=== PATIENT | male | born 1960 | race Caucasian/White ===

== ENCOUNTER → 2019-02-27 | Outpatient (CLI) | payer OTHER ==
--- NOTE | 2019-02-27 14:20 | REP ---
Clinical: Symptoms and pain related to atherosclerotic disease and intermittent claudication. Technique: Real time garcia scale and color Doppler evaluation of the bilateral lower extremity arterial vasculature using linear high frequency transducer. Findings: Advanced bilateral atheromatous plaquing is appreciated with occlusion of the bilateral proximal to distal superficial femoral arteries and subsequent downstream revascularization at the level of the distal femoral arteries. Monophasic wave patterns noted bilaterally. ABIs were not obtainable. Peak systolic velocities (cm/sec) RIGHT LEFT Common femoral artery 89.2 60.1 Profunda femoris 22.9 44.7 SFA (proximal) occluded occluded SFA (mid) occluded occluded SFA (distal) 65.2 17.6 Popliteal artery 102.8 61.1 SALLY (prox.) 167.5 43.5 Tibioperoneal trunk 109.7 103.0 AMUSEMENT MACHINE MECHANIC (prox.) 127.4 191.4 AMUSEMENT MACHINE MECHANIC (distal) 13.1 12.1 SALLY (distal) 13.0 9.5 Impression: Extensive atheromatous changes with occlusion to the bilateral proximal to distal superficial femoral arteries and subsequent downstream revascularization. Electronically Signed by Geovani Salamanca MD 02/27/2019 02:12 P
== END ==
LOC: M RAD 12:19
PROVIDERS: ATTEND Physician Assistant
DX: I70.213 Atherosclerosis of native arteries of extremities with intermittent claudication, bilateral legs (principal)

== ENCOUNTER → 2019-03-16 | Outpatient (CLI) | payer OTHER ==
[2019-03-16 10:16] LABS: HEMATOCRIT 45.6 % (42.0-52.0); HEMOGLOBIN 15.2 g/dl (13.5-17.5); MEAN CORPUSCULAR HEMOGLOBIN 31.7 pg (27.0-33.0); MEAN CORPUSCULAR HGB CONC 33.3 g/dl (32.0-36.5); PLATELET COUNT, AUTOMATED 317 10^3/uL (150-450); WHITE BLOOD COUNT 7.5 10^3/uL (4.0-10.0)
[2019-03-16 10:46] LABS: BLOOD UREA NITROGEN 10 MG/DL (7-18); CALCIUM LEVEL 8.8 MG/DL (8.5-10.1); CARBON DIOXIDE LEVEL 30 MEQ/L (21-32); CHLORIDE LEVEL 102 MEQ/L (98-107); CREATININE FOR GFR 0.78 MG/DL (0.70-1.30); GLOMERULAR FILTRATION RATE > 60.0 (>56); GLUCOSE, FASTING 98 MG/DL (70-100); POTASSIUM SERUM 4.5 MEQ/L (3.5-5.1); SODIUM LEVEL 139 MEQ/L (136-145)
== END ==
LOC: M LAB 08:38
PROVIDERS: ATTEND Physician Assistant
DX: Z01.818 Encounter for other preprocedural examination (principal); M79.606 Pain in leg, unspecified

== ENCOUNTER → 2019-03-16 | Outpatient (CLI) | payer OTHER ==
--- NOTE | 2019-03-17 04:42 | REP ---
Clinical: Abnormal lung findings. Technique: Axial noncontrast images from the thoracic inlet to the upper abdomen with coronal and sagittal re-formations. Comparison: 11/06/2018 (outside examination). Findings: Somewhat ill-defined areas of opacity involving the perihilar right upper lobe are again identified and similar to prior examination. No new area of consolidation, significant nodule or mass lesion is appreciated. Nonspecific mediastinal lymph nodes measure up to 10 mm short axis diameter and remains stable. No effusion. No pneumothorax. Tracheobronchial tree is patent. Mediastinum demonstrates atherosclerotic changes to the thoracic aorta and coronary arteries without aortic aneurysm or cardiomegaly. No pericardial effusion. Musculoskeletal structures are intact. Limited upper abdomen demonstrates normal bilateral adrenal glands. Impression: Somewhat ill-defined areas of opacity involving the perihilar right upper lobe are similar to prior examination and without significant improvement or enlargement. Follow-up examination in 3-6 months may be warranted. Electronically Signed by Geovani Salamanca MD 03/17/2019 04:33 A
== END ==
LOC: M RAD 07:49
PROVIDERS: ATTEND Internal Medicine Pulmonary Disease
DX: R91.8 Other nonspecific abnormal finding of lung field (principal)

== ENCOUNTER → 2019-03-16 | Outpatient (CLI) | payer OTHER ==
[2019-03-16 10:17] LABS: BASO # 0.1 10^3/uL (0.0-0.2); BASO % 0.8 % (0.0-1.0); EOS # 0.2 10^3/uL (0.0-0.5); EOS % 2.4 % (0.0-3.0); HEMATOCRIT 47.1 % (42.0-52.0); LYMPH # 1.3 10^3/uL (1.5-5.0); LYMPH % 18.5 % (24.0-44.0); MEAN CORPUSCULAR HEMOGLOBIN 30.6 pg (27.0-33.0); MEAN CORPUSCULAR HGB CONC 31.8 g/dl (32.0-36.5); MEAN CORPUSCULAR VOLUME 96.1 fl (80.0-96.0); MONO # 0.7 10^3/uL (0.0-0.8); MONO % 9.1 % (0.0-5.0); NEUTROPHILS # 4.9 10^3/uL (1.5-8.5); NEUTROPHILS % 68.8 % (36.0-66.0); PLATELET COUNT, AUTOMATED 294 10^3/uL (150-450); WHITE BLOOD COUNT 7.1 10^3/uL (4.0-10.0)
[2019-03-16 10:40] LABS: ERYTHROCYTE SEDIMENTATION RATE 3 mm/hr (0-20)
[2019-03-16 10:52] LABS: ALT/SGPT 32 U/L (12-78); BILIRUBIN,TOTAL 0.4 MG/DL (0.2-1.0); BLOOD UREA NITROGEN 11 MG/DL (7-18); C REACTIVE PROTEIN QUANTITATIV < 0.30 MG/DL (0.00-0.30); CALCIUM LEVEL 9.1 MG/DL (8.5-10.1); CARBON DIOXIDE LEVEL 30 MEQ/L (21-32); CHLORIDE LEVEL 102 MEQ/L (98-107); CREATININE FOR GFR 0.76 MG/DL (0.70-1.30); GLOMERULAR FILTRATION RATE > 60.0 (>56); GLUCOSE, FASTING 98 MG/DL (70-100); POTASSIUM SERUM 4.3 MEQ/L (3.5-5.1); RHEUMATOID FACTOR QUANT < 10.0 IU/ML (<15.0); SODIUM LEVEL 138 MEQ/L (136-145); TOTAL PROTEIN 7.2 GM/DL (6.4-8.2)
[2019-03-16 13:49] LABS: HIV 1&2 SCREEN CENTAUR NEGATIVE (NEGATIVE)
== END ==
LOC: M LAB 08:31
PROVIDERS: ATTEND Internal Medicine Pulmonary Disease
DX: Z01.818 Encounter for other preprocedural examination (principal); R91.8 Other nonspecific abnormal finding of lung field; M79.606 Pain in leg, unspecified

== ENCOUNTER 2019-04-13 06:46 | Day surgery (SDC) | payer OTHER ==
[~2019-04-13] VITALS: Ht 177.8 cm; Wt 61.2 kg
[~2019-04-13 06:46] MED LIST: ASPI81CH33 PO; IPRA0.00 NEB; LIDOCAINE 1% MDV 20ML VIAL SQ PRN
[2019-04-13] MEDS ORDERED: LR 1,000 ML IV ONE (07:00)
[2019-04-13] MEDS ORDERED: THROMBIN SOLN 5,000 UNITS VIAL As Ordered ONE (08:09)
[2019-04-13] MEDS ORDERED: ROCURONIUM BROMIDE 50 MG/5 ML VIAL As Ordered ONE ×2 (08:10→09:24)
[2019-04-13] MEDS ORDERED: ONDANSETRON 4MG/2ML VIAL (J2405) As Ordered ONE (08:10)
[2019-04-13] MEDS ORDERED: EPINEPHrine 1MG/10ML SYRINGE 1.5IN As Ordered ONE (08:10)
[2019-04-13] MEDS ORDERED: dexameTHASONE 4 MG/ML 1ML VIAL (J1100) As Ordered ONE (08:10)
[2019-04-13] MEDS ORDERED: LIDOCAINE VISCOUS 2% SOLN 15ML UDC As Ordered ONE (08:10)
[2019-04-13] MEDS ORDERED: propofoL 200 MG/20 ML VIAL As Ordered ONE (08:10)
[2019-04-13] MEDS ORDERED: LIDOCAINE 1% SDV INJ 30 ML VIAL As Ordered ONE (08:10)
[2019-04-13] MEDS ORDERED: CETACAINE SPRAY 5GM As Ordered ONE (08:10)
[2019-04-13] MEDS ORDERED: LIDOCAINE 2% INJ 100 MG/5 ML SDV (FOR ANES.) As Ordered ONE (08:10)
[2019-04-13] MEDS ORDERED: MIDAZOLAM INJ 2 MG/2 ML VIAL (J2250) As Ordered ONE (08:12)
[2019-04-13] MEDS ORDERED: fentaNYL 100 MCG/2 ML INJECTION (J3010) As Ordered ONE (08:12)
[2019-04-13] MEDS ORDERED: SUGAMMADEX SODIUM 500 MG/5 ML VIAL (BRIDION) As Ordered ONE (09:31)
--- NOTE | 2019-04-13 10:14 | ROOR ---
Patient Name: Joe Hobson Procedure Date: 04/13/2019 8:05 AM Date of : 1960 Admit Type: Outpatient Age: 58 Room: Main OR Note Status: Finalized Attending MD: Lauren Figueroa MD Procedure: Bronchoscopy Indications: Unresolving right upper lobe infiltrate, Mediastinal adenopathy Providers: Lauren Figueroa MD (Doctor) Referring MD: 1. No Referring Physician 1. No Referring Physician, Admin. (Referring MD) Requesting Physician: Medicines: General Anesthesia, Cetacaine topical Complications: No immediate complications. Estimated blood loss: Minimal Procedure: Pre-Anesthesia Assessment: - Prior to the procedure, a History and Physical was performed, and patient medications and allergies were reviewed. The patient's tolerance of previous anesthesia was also reviewed. The risks and benefits of the procedure and the sedation options and risks were discussed with the patient. All questions were answered, and informed consent was obtained. Prior Anticoagulants: The patient has taken aspirin, last dose was day of procedure. ASA Grade Assessment: III - A patient with severe systemic disease. After reviewing the risks and benefits, the patient was deemed in satisfactory condition to undergo the procedure. The Bronchoscope was introduced through the mouth, via the endotracheal tube (the patient was intubated for the procedure) and advanced to the tracheobronchial tree of both lungs. The procedure was accomplished without difficulty. The patient tolerated the procedure well. Findings: Respiratory tract: The trachea is of normal caliber. The kailey is sharp. The entire tracheobronchial tree was examined to at least the first subsegmental level. Bronchial anatomy are normal; there were scant mucous secretions noted. In left bronchial tree there was some mucosal pitting and webbing and nodular cartilage in DERIK. In the RUL there was a polypoid mucosal lesion. There was a nodular area of mucosa just prior to RUL oriface. In the RUL apical and anterior segment orifaces there was mildly friable mucosa with thickened appearance causing narrowing of the segmental oriface. Endobronchial biopsies of a nodule were performed in the right upper lobe using a forceps and sent for histopathology examination. Electromagnetic navigation bronchoscopy utilizing the [employer] system with iLogic upgrade was performed. The CT scan was used for planning purposes. A virtual bronchoscopic image was generated using the planning software and the kailey, left main bronchus kailey, left lower lobe basilar segment, right upper lobe, right middle lobe and right lower lobe basilar segment registration points were marked on the virtual image. The target in the apical segment of the right upper lobe was marked. An area of infiltration was found and a pathway was created. After a complete airway exam, the locatable guide/extended working channel was inserted and an automatic registration was performed by advancing the scope through the kailey, left main bronchus kailey, left lower lobe basilar segment, right upper lobe, right middle lobe and right lower lobe basilar segment. The navigation phase was then begun to locate the target lesion(s). Positioning off-center (in relation to the lesion) was confirmed using the Olympus radial probe US catheter. The locatable guide was removed from the extended working channel. Fluoroscopy guided transbronchial brushings of an area of infiltration were obtained in the apical segment of the right upper lobe with a needle brush and sent for routine cytology. Transbronchial brushing technique was selected because the sampling site was not visible endoscopically. Transbronchial needle aspirations of an area of infiltration were performed in the apical segment of the right upper lobe GenCut and sent for routine cytology. The procedure was guided by fluoroscopy. Transbronchial needle aspiration technique was selected because the sampling site was not visible endoscopically. Transbronchial biopsies of an area of infiltration were performed in the apical segment of the right upper lobe using forceps and sent for histopathology examination. The procedure was guided by fluoroscopy. Transbronchial biopsy technique was selected because the sampling site was not visible endoscopically. Bronchoalveolar lavage was performed in the RUL apical segment (B1) of the lung and sent for cell count, bacterial culture, viral smears & culture, and fungal & AFB analysis and cytology. The return was blood-tinged. Mucous plugs were present in the return fluid. An endobronchial ultrasound endoscope was utilized in order to assist with fine needle aspiration in the right paratracheal area and in the right hilum. Transbronchial needle aspirations of a lymph node were performed in the right paratracheal area and in the right hilum using an Olympus EBUS-TBNA 21 gauge needle and sent for routine cytology. The procedure was guided by ultrasound. Transbronchial needle aspiration technique was selected because the sampling site was not visible endoscopically. Estimated blood loss: minimal. Impression: - Unresolving right upper lobe infiltrate - Mediastinal adenopathy - An endobronchial biopsy was performed. - Electromagnetic navigation bronchoscopy was performed. - Transbronchial brushings were obtained. - A transbronchial needle aspiration was performed. - Transbronchial lung biopsies were performed. - Bronchoalveolar lavage was performed. - Endobronchial ultrasound was performed. - A transbronchial needle aspiration was performed. Recommendation: - Follow up with bronchoscopist as previously scheduled. Attending Participation: I personally performed the entire procedure. Lauren Figueroa MD 04/13/2019 10:13:43 AM Number of Addenda: 0 Note Initiated On: 04/13/2019 8:05 AM
[2019-04-13] MEDS ORDERED: fentaNYL 100 MCG/2 ML INJECTION (J3010) IV PRN (10:15)
[2019-04-13] MEDS ORDERED: oxyCODONE 5MG TAB PO PRN (10:15)
[2019-04-13] MEDS ORDERED: ONDANSETRON 4MG/2ML VIAL (J2405) IV PRN (10:15)
[2019-04-13] MEDS ORDERED: LR 1,000 ML IV SCH (10:15)
--- NOTE | 2019-04-13 10:25 | REP ---
Clinical: Status post bronchoscopy . Comparison: None . Findings: The mediastinum and cardiac silhouette are stable and within normal limits for portable technique. The lung [place] are clear without acute consolidation, effusion, or pneumothorax. Skeletal structures are intact. Impression: No acute cardiopulmonary process appreciated. Electronically Signed by Geovani Salamanca MD 04/13/2019 10:16 A
[2019-04-13 10:49] LABS: APPEARANCE CLOTTED (CLEAR); COLOR RED (COLORLESS); SOURCE RIGHT UPPER LOBE
[2019-04-13 11:00] VITALS: BP 145/66
[2019-04-13 12:09] LABS: MONOCYTES/MACROPHAGES, BAL 4 %
[2019-04-21] MEDS ORDERED: VITA1CHW7 PO (07:04)
== END 2019-04-13 11:10 | disposition home or self-care (01) ==
LOC: M SDC 06:46
PROVIDERS: ATTEND Internal Medicine Pulmonary Disease
DX: R91.8 Other nonspecific abnormal finding of lung field (principal); R59.0 Localized enlarged lymph nodes; J44.9 Chronic obstructive pulmonary disease, unspecified; M19.90 Unspecified osteoarthritis, unspecified site; I73.9 Peripheral vascular disease, unspecified; D50.9 Iron deficiency anemia, unspecified; F17.218 Nicotine dependence, cigarettes, with other nicotine-induced disorders; Z79.82 Long term (current) use of aspirin
CPT/HCPCS: 31623; 31624; 31625; 31627; 31628; 31653; 71045; 76000; 87070; 87077; 87102; 87116; 87186; 87205; 87206; 88104; 88108; 88173; 88305; 88313; 89051; J1100; J2250; J2405; J3010

== ENCOUNTER → 2019-04-21 | Outpatient (CLI) | payer OTHER ==
[~2019-04-21] MED LIST changes: +HEPARIN 1,000 UNITS/ML 10ML VIAL (FOR RADIOLOGY& DIALYSIS ONLY)(J1644-10) As Ordered ONE; +ISOVUE-300 61% 50ML VIAL (Q9967) As Ordered ONE; +LIDOCAINE 1% MDV 20ML VIAL As Ordered ONE; -LIDOCAINE 1% MDV 20ML VIAL SQ PRN; +MIDAZOLAM INJ 2 MG/2 ML VIAL (J2250) As Ordered ONE; +VITA1CHW7 PO; +fentaNYL 100 MCG/2 ML INJECTION (J3010) As Ordered ONE
[2019-04-21 07:14] LABS: HEMATOCRIT 42.8 % (42.0-52.0); HEMOGLOBIN 14.2 g/dl (13.5-17.5); MEAN CORPUSCULAR HEMOGLOBIN 31.2 pg (27.0-33.0); MEAN CORPUSCULAR HGB CONC 33.2 g/dl (32.0-36.5); MEAN CORPUSCULAR VOLUME 94.1 fl (80.0-96.0); PLATELET COUNT, AUTOMATED 315 10^3/uL (150-450); RED BLOOD COUNT 4.55 10^6/uL (4.30-6.10); WHITE BLOOD COUNT 7.3 10^3/uL (4.0-10.0)
[2019-04-21 07:39] LABS: ALBUMIN 3.6 GM/DL (3.2-5.2); ALT/SGPT 33 U/L (12-78); BILIRUBIN,TOTAL 0.3 MG/DL (0.2-1.0); BLOOD UREA NITROGEN 9 MG/DL (7-18); CALCIUM LEVEL 8.9 MG/DL (8.5-10.1); CARBON DIOXIDE LEVEL 29 MEQ/L (21-32); CHLORIDE LEVEL 107 MEQ/L (98-107); CREATININE FOR GFR 0.76 MG/DL (0.70-1.30); GLOMERULAR FILTRATION RATE > 60.0 (>56); GLUCOSE, FASTING 90 MG/DL (70-100); POTASSIUM SERUM 5.6 MEQ/L (3.5-5.1); SODIUM LEVEL 137 MEQ/L (136-145); TOTAL PROTEIN 6.7 GM/DL (6.4-8.2)
--- NOTE | 2019-04-21 09:11 | ROOPDOC ---
[facility] Report Of Operation Report of Operation DATE OF PROCEDURE: 04/21/19 PREPROCEDURE DIAGNOSES: Atherosclerosis of the [place] arteries with lifestyle limiting claudication POSTPROCEDURE DIAGNOSES: Same PROCEDURE: 1. Ultrasound-guided access right common femoral artery 2. Aortoiliofemoral arteriogram with bilateral lower extremity runoff 3. Mynx closure right common femoral artery SURGEON: Jaja Teran MD ANESTHESIA: Local anesthesia 5 mL lidocaine. Moderate intravenous conscious sedation was supervised by Dr. Teran. The patient was independently monitored by a registered nurse assigned to the Department of radiology using automated blood pressure, EKG, and pulse oximetry. The detailed sedation record is permanently stored in the hospital information system. The following is a brief sedation record: Start time 08:09, stop time 08:39, Versed 1 mg IV, fentanyl 50 g IV. INDICATION FOR PROCEDURE: This is a very pleasant 58-year-old gentleman with lifestyle limiting claudication left leg worse than right, who was initially scheduled for right lower extremity arteriogram today, but after discussion with him this morning, we decided to change his consent to the left lower extremity possible right. He said that he is having worse symptoms on the left at this point. Risks benefits and alternatives to left lower extremity, possible right lower extremity arteriogram and intervention were explained. The patient is agreeable to proceed. Informed consent was obtained. INTERPRETATION: 1. 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 There is extensive collateralization from the right hypogastric artery over to the left profunda, which is the arterial inflow to the left lower extremity. The origin of the right hypogastric is stenotic with poststenotic dilatation, but there is still rapid filling over to the left vessel. 2. The right common femoral arteries patent but no flow was noted in the superficial femoral artery. There is plaque in the common femoral artery that is not appear flow-limiting, with excellent flow in 20 widely patent profunda system that supplies the lower extremity on the right. The popliteal artery reconstitutes [id number] through these profunda collaterals. The anterior tibial has a high takeoff in the mid popliteal artery and does runoff to the foot although it is fairly thready towards the ankle. The peroneal artery is also patent and runs off to the ankle but it is diminutive and side from the mid calf to distal. The posterior tibial artery is the main runoff to the foot and is the largest vessel at the ankle and the foot. 3. On the right, it is difficult to see if there is reconstitution at the popliteal artery although I think that I'm able to see a faint shadow of the popliteal artery reconstituting. Even with large dose of contrast, there is such limited flow through the collaterals from right to left that the contrast washes out below the knee. We are not able to see the runoff below the knee. REPORT OF OPERATION: The patient was brought to the angiographic suite in stable condition. His bilateral groins were prepped and draped in a sterile fashion. A timeout was performed. Sedation was administered without complication. Local anesthesia was administered to the skin and subcutaneous tissue over the right common femoral artery and a microneedle was used to access the artery under ultrasound guidance. A wire was passed through this access of the needle was removed and a micro-sheath was placed over the wire using a Seldinger technique. Following this, we advanced a Glidewire into the aorta under fluoroscopic guidance. We exchanged the sheath for 6 Wolof sheath and flushed the sheath wi th saline. We advanced a contractor catheter over the wire into the aorta and in aortoiliofemoral arteriogram was performed, please see interpretation above. We then removed the contrast catheter over the wire and the arteriograms were then done through the right femoral sheath for the bilateral lower extremity runoff. Please see interpretation above. At this point we did not feel endovascular intervention would be successful for the patient due to his extensive vascular disease and a Mynx closure device was deployed in the right common femoral artery under fluoroscopic guidance with good hemostasis. Pressure was held for 10 minutes and the patient was then taken to recovery in stable condition. There were no compilations any tolerated the procedure well. ESTIMATED BLOOD LOSS: Approximately 3 mL. COMPLICATIONS: None. PLAN: We will plan to see the patient back in the office to discuss options for open surgical intervention. He has relatively good inflow through the right iliac artery, and I think he may benefit from bilateral common femoral endarterectomy and right to left femoropopliteal bypass. It is unclear how much outflow he has at and below the knee on the left due to washout of contrast from limited inflow through collaterals. However, the patient's left foot is warm and pink, thus I suspect he has decent outflow below the knee. Both superficial femorals are out with good collateral flow through the profundus, and I suspect both popliteal arteries reconstitute at the knee. Ideally, the patient would have bilateral common femoral endarterectomy, femoropopliteal bypasses bilaterally and a right to left femorofemoral bypass, but this is an extremely arduous surgery that could take up to 10 hours, and his symptoms may be somewhat alleviated with proximal endarterectomies and improvement in inflow. If the patient were to quit smoking and ambulate, he likely wouldn't improve his pro sabrina collaterals to the below-knee segments which would likely alleviate his claudication. We had a lengthy discussion about smoking cessation today and the patient is willing to quit. We will plan to see him in clinic to discuss all options for revascularization, and he will need to be set up for cardiac and medical clearance for surgery. He will need a stress test if he has not had 1 within one year. He is agreeable to this plan. JAJA TERAN MD Apr 21, 2019 09:11
[2019-04-21 12:06] VITALS: BP 147/71
== END ==
LOC: M IRPRO 06:25
PROVIDERS: ATTEND Surgery Vascular Surgery
DX: I70.213 Atherosclerosis of native arteries of extremities with intermittent claudication, bilateral legs (principal); J44.9 Chronic obstructive pulmonary disease, unspecified; F17.210 Nicotine dependence, cigarettes, uncomplicated
CPT/HCPCS: 36245; 75630; 80053; 85027; 99152; 99153; C1760; C1769; C1887; C1894; G0269; J1644; J2250; J3010; Q9967

== ENCOUNTER → 2019-07-07 | Outpatient (CLI) | payer OTHER ==
[~2019-07-07] MED LIST changes: -HEPARIN 1,000 UNITS/ML 10ML VIAL (FOR RADIOLOGY& DIALYSIS ONLY)(J1644-10) As Ordered ONE; -ISOVUE-300 61% 50ML VIAL (Q9967) As Ordered ONE; -LIDOCAINE 1% MDV 20ML VIAL As Ordered ONE; -MIDAZOLAM INJ 2 MG/2 ML VIAL (J2250) As Ordered ONE; +OXYC1TAB23 PO; +PLAV1TAB2 PO; -fentaNYL 100 MCG/2 ML INJECTION (J3010) As Ordered ONE
== END ==
LOC: M LABSMTC 09:48
PROVIDERS: ATTEND Anesthesiology
DX: Z03.818 Encounter for observation for suspected exposure to other biological agents ruled out (principal); Z11.59 Encounter for screening for other viral diseases

== ENCOUNTER 2019-07-10 06:02 | Inpatient (IN) | payer OTHER ==
--- NOTE | 2019-07-03 09:41 | HPEPDOC ---
[facility] Medical History & Physical Date of Admission July 10, 2019 Date of Service: July 10, 2019 History and Physical Vascular Surgery Dr. Teran HPI: The patient is a 58-year-old male who established care 02/17/19 referred from the [place] for evaluation of PAD. The patient has reported pain in his lower extremities have been unchanged. The patient states he has noticed discomfort in his lower extremities for approximately 10 years. With ambulation he has pain which is crampy in nature and his thighs, calves and behind his knees. Currently if he walks 30-50 feet he will begin to notice discomfort in his legs. If he stops for 10-15 minutes the discomfort improves and it recurs if he begins walking again. He gets a weak sensation in his legs. He has numbness and tingling in his feet. He states the left has been worse on the right. He has no wounds on his lower extremities. His feet tend to feel cool. The patient is status post right lower extremity angiogram as per Dr. Teran 04/21/19 with recommendation as per Dr. Teran for bilateral common femoral endarterectomy with right to left femoral-femoral bypass graft. In preparation for the procedure medical clearance has been obtained and displaced at the chart. Cardiac clearance with stress test has been obtained and displaced to the chart. The pt is a current smoker The pt is on ASA. The pt denies TIA, amaurosis fugax, paralysis or paresis of extremities, nausea, vomiting, fever, chills, SOB, chest pain, abdominal pain, back pain. PMHx: PAD COPD Tobacco use PSHX: Left knee surgery SOCHX: Works part-time at [employer]. Current smoker 10-20 per day for 40 years. Alcohol. 3-4 beers per day. FAMHX: Mother: , cancer Father: , MVA ROS: As noted in HPI, otherwise 11pt ROS of systems reviewed and unremarkable. PE: Const: Appears healthy and well developed. No signs of apparent distress present. Head/Face: Normal on inspection. ENMT: Tympanic membranes: intact. External nose WNL. Neck: Supple, Resp: Decreased breath sounds but clear, no wheezing. CV: Rate is regular. Rhythm is regular. No wounds are noted on the lower extremities. Monophasic DP/PT bilaterally.Reddish discoloration is noted of the toes. Toes are cooler to touch. The patient has dry skin of his lower extremities. Flaking of his nails. Abdomen: Soft, NT, ND, no guarding, rigidity, rebound. No organomegaly or palpable mass/aneurysm. Lymph: No palpable or visible regional lymphadenopathy. Musculo:Gait steady Skin:No rashes or lesions Neuro:Alert and oriented x3, moves all extremities equally, no focal neurologic deficits noted. Psych: Pleasant and cooperative A&P: 1. Atherosclerosis [place] vessels of lower extremities bilaterally/bilateral femoral endarterectomy with right to left femoral-femoral bypass as per Dr. Teran 07/10/19. Informed consent has been obtained and is placed with the chart. Transfusion consent is obtained and is placed with the chart. Medical clearance has been obtained and is placed with the chart. Cardiac clearance with stress study has been obtained and is placed in the chart. The patient is nothing by mouth. IV fluids as per anesthesia. CBC, BMP, INR, PTT, type and screen on admission. Ancef 2 g IV preoperatively. The patient remains on aspirin 81 mg daily. Possibly consider addition of statin for best medical management postop eratively. 2. Tobacco use The patient has been strongly encouraged to quit smoking. Potential health hazards have been discussed with the patient at length including the advancement of atherosclerotic disease. I have previously discussed the continuing to smoke is associated with progression of disease, greater risk of complications and poor response to therapy. I have stressed with the patient the vascular interventions are likely to fail if the patient continues to smoke. Vital Signs Admission vital signs pending. Laboratory Data Labs 24H Admission labs pending. Home Medications Scheduled Aspirin (Aspirin) 81 Mg Tab.chew, 1 TAB PO DAILY for pain Cholecalciferol (Vitamin D3) (Vitamin D3) 2,000 Unit Tab.chew, 2,000 UNIT PO DAILY Scheduled PRN Ipratropium/Albuterol Sulfate (Iprat-Albut 0.5-3(2.5) mg/3 ml) 3 Ml Ampul.neb, 1 VIAL NEB QIDP PRN for RESPIRATORY DISTRESS Allergies Coded Allergies: No Known Allergies (Unverified , 04/06/19) A-FIB/CHADSVASC A-FIB History Current/History of A-Fib/PAF?: No Current PO Anticoag Therapy: No Alessandra Bernal July 03, 2019 09:40
[~2019-07-10] VITALS: Ht 177.8 cm; Wt 68.0 kg
[2019-07-10] VITALS (10 sets, daily range): BP systolic 138–165; BP diastolic 78–83; O2SAT 98
[~2019-07-10 06:02] MED LIST changes: -OXYC1TAB23 PO; -PLAV1TAB2 PO
[2019-07-10 06:42] LABS: HEMATOCRIT 43.7 % (42.0-52.0); HEMOGLOBIN 14.5 g/dl (13.5-17.5); MEAN CORPUSCULAR HGB CONC 33.2 g/dl (32.0-36.5); MEAN CORPUSCULAR VOLUME 93.4 fl (80.0-96.0); PLATELET COUNT, AUTOMATED 288 10^3/uL (150-450); RED BLOOD COUNT 4.68 10^6/uL (4.30-6.10); WHITE BLOOD COUNT 7.6 10^3/uL (4.0-10.0)
[2019-07-10 06:53] LABS: INR 1.05; PROTHROMBIN TIME 13.5 SECONDS (11.8-14.0)
[2019-07-10] MEDS ORDERED: LR 1,000 ML IV ONE (07:00)
[2019-07-10] MEDS ORDERED: ceFAZolin SOD 2 GM in IV 1 EA IV ONE (07:00)
[2019-07-10 07:05] LABS: BLOOD UREA NITROGEN 16 MG/DL (7-18); CALCIUM LEVEL 9.1 MG/DL (8.5-10.1); CARBON DIOXIDE LEVEL 30 MEQ/L (21-32); CHLORIDE LEVEL 104 MEQ/L (98-107); GLOMERULAR FILTRATION RATE > 60.0 (>56); GLUCOSE, FASTING 91 MG/DL (70-100); POTASSIUM SERUM 4.5 MEQ/L (3.5-5.1); SODIUM LEVEL 137 MEQ/L (136-145)
[2019-07-10] MEDS ORDERED: HEPARIN SOD (PORCINE) 5000UNITS/ML VIAL (J1644 PER 1000UNITS) As Ordered ONE ×3 (07:13→10:14)
[2019-07-10] MEDS ORDERED: BUPIVACAINE/EPIN 0.25% 30 ML VIAL As Ordered ONE (07:13)
[2019-07-10] MEDS ORDERED: THROMBIN SOLN 5,000 UNITS VIAL As Ordered ONE (07:14)
[2019-07-10] MEDS ORDERED: ROCURONIUM BROMIDE 50 MG/5 ML VIAL As Ordered ONE ×3 (07:21→10:10)
[2019-07-10] MEDS ORDERED: propofoL 200 MG/20 ML VIAL As Ordered ONE (07:21)
[2019-07-10] MEDS ORDERED: fentaNYL 250 MCG/5 ML INJECTION (J3010) As Ordered ONE ×2 (07:21→09:00)
[2019-07-10] MEDS ORDERED: LIDOCAINE 2% 100MG/5ML SDV (FOR ANES.) As Ordered ONE (07:21)
[2019-07-10] MEDS ORDERED: MIDAZOLAM INJ 2MG/2ML VIAL (J2250 PER 1MG) As Ordered ONE (07:22)
[2019-07-10] MEDS ORDERED: BUPIVACAINE/EPIN 0.5% 30 ML VIAL As Ordered ONE (07:42)
[2019-07-10] MEDS: HEPARIN SOD (PORCINE) 5000UNITS/ML VIAL (J1644 PER 1000UNITS) As Ordered ONE ×2 (07:42→11:32)
[2019-07-10] MEDS ORDERED: HYDROmorphone HCL 2 MG/ML 1ML VIAL (J1170) As Ordered ONE (09:13)
[2019-07-10] MEDS ORDERED: ONDANSETRON 4MG/2ML VIAL As Ordered ONE (09:29)
[2019-07-10] MEDS ORDERED: ACETAMINOPHEN 1000MG 100ML IV BTL (OFIRMEV) (J0131 PER 10MG) As Ordered ONE (09:29)
[2019-07-10] MEDS ORDERED: KETOROLAC 60 MG/2 ML VIAL As Ordered ONE (09:29)
[2019-07-10] MEDS ORDERED: dexameTHASONE 4 MG/ML 1ML VIAL (J1100 PER 1MG) As Ordered ONE (09:29)
[2019-07-10] MEDS ORDERED: ceFAZolin 2 GM/D5W 50 ML IV BAG (J0690 PER 500MG) As Ordered ONE (10:23)
[2019-07-10] MEDS ORDERED: LABETALOL 100MG/20ML VIAL As Ordered ONE (10:30)
[2019-07-10] MEDS ORDERED: NEOSTIGMINE 10MG/10ML VIAL (J2710 PER 0.5MG) As Ordered ONE (11:39)
[2019-07-10] MEDS ORDERED: GLYCOPYRROLATE INJ 0.2 MG/ML 2 ML VIAL As Ordered ONE (11:40)
[2019-07-10] MEDS ORDERED: LR 1,000 ML IV SCH (12:30)
[2019-07-10] MEDS ORDERED: fentaNYL 100 MCG/2 ML INJECTION (J3010) IV PRN (12:30)
[2019-07-10] MEDS ORDERED: HYDROmorphone 2 MG TAB PO PRN (12:30)
[2019-07-10] MEDS ORDERED: METOCLOPRAMIDE INJ 10MG/2ML VIAL (J2765 PER 1) IV PRN (12:30)
[2019-07-10] MEDS ORDERED: ONDANSETRON 4MG/2ML VIAL IV PRN (12:30)
[2019-07-10] MEDS ORDERED: MORPHINE 2 MG/ML 1ML VIAL (J2270) IV PRN (12:30)
[2019-07-10] MEDS ORDERED: PERCOCET 5MG/325MG TAB PO PRN (12:30)
[2019-07-10] MEDS ORDERED: oxyCODONE 5MG TAB PO PRN (12:30)
--- NOTE | 2019-07-10 12:54 | ROOPDOC ---
[facility] Report Of Operation Report of Operation DATE OF PROCEDURE: 07/10/19 PREPROCEDURE DIAGNOSES: Atherosclerosis of the [place] vessels with lifestyle limiting short distance claudication and bilateral leg pain POSTPROCEDURE DIAGNOSES: Same PROCEDURE: 1. Ultrasound-guided arterial line placement right ulnar artery 2. Bilateral common femoral endarterectomy with Xenosure patch angioplasty 3. Right to left femoral-femoral bypass with 6 mm ringed PTFE graft SURGEON: Jaja Teran MD ANESTHESIA: Gen. anesthesia and 30 mL local anesthesia Marcaine with epinephrine. INDICATION FOR PROCEDURE: This is a very pleasant 58-year-old gentleman with severe bilateral lower extremity peripheral vascular disease. He has short distance claudication with long recovery times and can only ambulate a very minimal amount which is extremely lifestyle limiting for him. He would like to ambulate a great deal more. He used to be very active. He quit smoking 2 months ago, which is a huge help, and very encouraging. He has severe bilateral lower extremity vascular disease, including occluded left common and external iliac artery, occluded bilateral superficial femoral arteries, but good collateralization from the profundus bilaterally to the popliteal arteries. Ideally, we would do bilateral femoral endarterectomies, a right to left femorofemoral bypass, and bilateral femoropopliteal bypasses, but this is an extreme amount of surgery to do at one time in a patient with cardiopulmonary comorbidities from long-standing tobacco abuse. Therefore, we will start with femoral endarterectomies and a [id number] femorofemoral bypass. This will improve inflow to the lower extremities bilaterally, and with smoking cessation, the collaterals the patient has will continue to develop with ambulation and this may be enough to help him progress to a higher level of activity without pain. Risks benefits and alternatives were explained to the patient and he was agreeable to proceed. Informed consent was obtained. REPORT OF OPERATION: The patient was brought to the angiographic suite in stable condition. General anesthesia and antibiotics were administered without complication. The patient had very small calcified radial arteries and our anesthesia colleagues were having difficulty threading an arterial line for the procedure. I was able to place an arterial line in the right ulnar artery. The right arm was prepped and draped in a sterile fashion. Ultrasound was used to guide access to the ulnar artery at the wrist and radial art line was placed. There was a good waveform. The arterial line was carefully secured with sterile dressings. Following this, his bilateral groins were prepped and draped in a sterile fashion. A timeout was performed. An oblique incision was made over the right inguinal ligament and carried down through the subcutaneous tissue with Bovie cautery. Bridging veins were suture ligated and divided. We continued our dissection down to the femoral sheath. The femoral sheath was then opened longitudinally and the femoral vessels were skeletonized proximally and distally. Vesseloops were placed around the circumflex vessels, the profunda, and the superficial femoral artery. Next, we performed the same cut down over the left femoral vessels. An oblique incision was made over the left inguinal ligament and carried down through the subcutaneous tissue with Bovie cautery. Bridging veins were suture ligated and divided. We continued our dissection down to the femoral sheath. The femoral sheath was opened longitudinally and the femoral vessels were skeletonized proximally and distally. Vesseloops were placed around the circumflex vessels, the profunda and the superficial femoral artery. Collaterals were carefully preserved. 5000 units of heparin was given by anesthesia and allowed circulate. Starting with the left femoral artery, we secured a clamp proximal to the circumflex vessels above the area of heavy palpable plaque and secured her Vesseloops. A longitudinal arteriotomy was made along the common femoral artery from the circumflex to the profunda. We then elevated out a significant amount of plaque, consisting of both calcified posterior wall plaque in intimal hyperplasia. This was sent for pathology. We then selected Xenosure patch and anastomosed it to the artery with a running 5-0 Prolene hemostatic suture. Before the final sutures are placed, we flushed her inflow and outflow arteries and irrigated with heparinized saline. We then restored flow. Good hemostasis was noted. We then turned our attention to the right common femoral artery. A clamp was placed proximal to the circumflex vessels above the area of heavy plaque in the Vesseloops were secured. A longitudinal arteriotomy was made from the circumflex vessels to the SFA. Near occlusive heavy calcified plaque along with thrombus was noted within the common femoral artery. This was carefully removed in order to preserve the posterior wall of the vessel. Once we around the plaque circumferentially, we transected it and father out towards SFA and profunda to a good endpoint. We then feathered about the plaque proximally almost to the external iliac artery with a good endpoint. Care was taken to remove all loose intima and debris and heparinized saline was used to irrigate the bulk. All loose intima debris was removed. Once we were satisfied with the endarterectomy, we again performed a patch angioplasty in a similar fashion to the left side with a running 5-0 Prolene suture. Before the final sutures were placed, we flushed the inflow and outflow arteries and irrigated with heparinized saline. Following this, a tunneler was used to create a tunnel from the right groin to the left groin just superior to the pubic symphysis. A 6 mm ringed Stuart-Robert graft was tunneled through the tunneler and a tunneler was removed. The right side of the graft was beveled. Additional heparin was given. We resecured the clamp on the common femoral artery and the Vesseloops, and an arteriotomy was made on the patch. We then anastomosed the graft to the patch and an end-to-side fashion with running 5-0 Prolene hemostatic suture. Before the final sutures are placed, a clamp was placed on the ipsilateral side of the graft and we flushed the inflow and outflow arteries. We irrigated with heparinized saline in the final sutures were placed. We restored flow and good hemostasis was noted. We then turned our attention to the left groin. The graft was beveled after cutting it to the appropriate length. A clamp was placed on the common femoral artery and the Vesseloops were resecured. An arteriotomy was made in the patch and the graft was anastomosed to the patch with an end-to-side fashion with 5-0 Prolene hemostatic suture. Before the final sutures were placed, we flushed the inflow and outflow of the artery and irrigated with heparinized saline. We then placed the final sutures and restored flow. Good hemostasis was noted. Doppler confirmed excellent flow through both common femoral arteries and profundus. There was a good pulse in the graft. The superficial femoral arteries are chronically occluded and we did not expect flow. However, the profundus had a marked improvement inflow from preop. This should dramatically improve flow through the collaterals into the lower legs bilaterally. We irrigated both incisions with copious amounts of saline. Local anesthesia was administered to the skin and subcutaneous tissue around each incision and some additional local anesthesia was administered to the tissue around the femoral nerves bilaterally. The right groin incision was closed in 4 layers. We approximated the femoral sheath with running 2-0 Vicryl suture. We close the deep fascia with running 2-0 Vicryl suture. The closest superficial fascia with running 3-0 Vicryl suture and then we closed the more superficial tissue with running 3-0 Vicryl suture. Care was taken to close tissue around the graft to eliminate space protective graft. We then approximated the deep dermal layer with interrupted 3-0 Vicryl sutures. Lelia were used to close the skin. On the left groin, the same procedure was performed. The femoral sheath was closed in a longitudinal fashion with 2-0 Vicryl suture. The deep fascial layer was closed with running 2-0 Vicryl suture. The more superficial fascial layer was closed with running 3-0 Vicryl suture. The more superficial tissue was closed with 3-0 Vicryl suture. Care was taken to protect the graft and close tissue around the graft to keep it in good position and eliminate space. The deep dermal layer was approximated with interrupted 3-0 Vicryl sutures. And the skin was closed with skin lelia. Both incisions were cleaned and dried and 4 x 4's and Tegaderms were placed at the final dressing. The patient was allowed to awaken from anesthesia and was taken to recovery in stable condition. He tolerated the procedure and anesthesia well. SPECIMEN: Bilateral femoral artery plaque sent for pathology ESTIMATED BLOOD LOSS: Approximately 50 mL. COMPLICATIONS: None. PLAN: Okay to resume high protein diet and home medications. Bed rest overnight, patient does not need to be flat, and out of bed with activity as tolerated in the morning, but no strenuous exercise or lifting greater than 5-10 pounds for 2 weeks. Okay to shower 24 hours postop with dressing self, and replaced dry dressings daily. The patient drinks about 6 beers per day per his family, and does have a little bit of irritability and shakiness if he does not drink beer. Because of this, and because of his chronic neurogenic pain from back issues, we will start Valium 5 mg every 8 hours scheduled, and we'll ask our hospitalist service to start a CIWA protocol as well. The patient's Jerome will be discontinued in the morning. We estimate discharge to be in 2-3 days. JAJA TERAN MD July 10, 2019 12:54
[2019-07-10] MEDS ORDERED: LORazepam 2 MG TAB PO PRN (13:45)
[2019-07-10] MEDS: diazePAM 5 MG TAB PO SCH ×2 (14:54→22:54)
[2019-07-10] MEDS ORDERED: ASPIRIN 81 MG ENTERIC TAB PO ONE (16:30)
[2019-07-10] MEDS: ASPIRIN 81 MG ENTERIC TAB PO SCH (16:54)
[2019-07-10] MEDS: THIAMINE 100 MG TAB PO SCH (21:11)
[2019-07-10] MEDS: PERCOCET 5MG/325MG TAB PO PRN (21:11)
[2019-07-11] VITALS (7 sets, daily range): BP systolic 150–167; BP diastolic 73–87; O2SAT 97
[2019-07-11] MEDS: diazePAM 5 MG TAB PO SCH ×3 (05:55→21:03)
[2019-07-11 06:53] LABS: BASO % 0.3 % (0.0-1.0); EOS % 0.1 % (0.0-3.0); HEMATOCRIT 38.4 % (42.0-52.0); HEMOGLOBIN 12.9 g/dl (13.5-17.5); LYMPH # 1.6 10^3/uL (1.5-5.0); LYMPH % 13.8 % (24.0-44.0); MEAN CORPUSCULAR HEMOGLOBIN 31.6 pg (27.0-33.0); MEAN CORPUSCULAR HGB CONC 33.6 g/dl (32.0-36.5); MEAN CORPUSCULAR VOLUME 94.1 fl (80.0-96.0); MONO # 1.1 10^3/uL (0.0-0.8); MONO % 9.7 % (0.0-5.0); NEUTROPHILS # 8.9 10^3/uL (1.5-8.5); NEUTROPHILS % 75.7 % (36.0-66.0); PLATELET COUNT, AUTOMATED 227 10^3/uL (150-450); RED BLOOD COUNT 4.08 10^6/uL (4.30-6.10); WHITE BLOOD COUNT 11.7 10^3/uL (4.0-10.0)
[2019-07-11 07:17] LABS: BLOOD UREA NITROGEN 15 MG/DL (7-18); CALCIUM LEVEL 8.5 MG/DL (8.5-10.1); CARBON DIOXIDE LEVEL 29 MEQ/L (21-32); CHLORIDE LEVEL 103 MEQ/L (98-107); CREATININE FOR GFR 0.73 MG/DL (0.70-1.30); GLOMERULAR FILTRATION RATE > 60.0 (>56); GLUCOSE, FASTING 95 MG/DL (70-100); POTASSIUM SERUM 4.1 MEQ/L (3.5-5.1); SODIUM LEVEL 137 MEQ/L (136-145)
[2019-07-11] MEDS: FOLIC ACID 1 MG TAB PO SCH (08:07)
[2019-07-11] MEDS: THIAMINE 100 MG TAB PO SCH ×2 (08:07→21:03)
[2019-07-11] MEDS: ASPIRIN 81 MG ENTERIC TAB PO SCH (08:07)
[2019-07-11] MEDS: ENOXAPARIN 40MG/0.4ML SYRINGE (J1650 PER 10MG) SC SCH (08:07)
[2019-07-11] MEDS: MULTIVITAMINS/MINERALS THERAP 1 TAB PO SCH (08:07)
[2019-07-11] MEDS: PERCOCET 5MG/325MG TAB PO PRN ×2 (10:54→17:50)
--- NOTE | 2019-07-11 12:44 | IPNPDOC ---
Date Seen The patient was seen on 07/11/19. Progress Note Patient seen and examined. Doing well postoperative day 1 status post bilateral common femoral endarterectomies with patch angioplasty and right to left femorofemoral bypass. He has been out of bed and ambulating in the halls without difficulty. He said both legs feel so much better. His Jerome catheter is out and he is urinating without difficulty. He is tolerating high-protein diet. His pain is well controlled. He does complain of a little bit of numbness on the medial right thigh, but I think this is likely secondary to our right groin surgical incision combined with a femoral nerve block done at the end of the case. Other than that, he has no complaints. On exam, his bilateral groin incisions are clean dry and intact. Both incisions were thoroughly cleaned and dry dressings were applied. He has a strong signal over his bypass. He has weak DP and PT signals on the right, but also has limited tibial flow on the right in named vessels this is not surprising, but his foot is very warm hyperemic with less than 1 second capillary refill. On the left he has monophasic but strong DP and PT signals and his foot is warm hyperemic. Both extremities have 1+ edema, present before surgery as well. I've encouraged the patient to elevate his legs when he is in bed. Overall, were pleased with his progress. I discussed with him that if he continues to do well overnight he can likely go home tomorrow. He is agreeable to this plan. We appreciate the hospitalist assistance with this patient. VS, I&O, 24H, Fishbone Vital Signs/I&O Vital Signs Date Time Temp Pulse Resp B/P (MAP) Pulse Ox O2 Delivery O2 Flow Rate FiO2 07/11/19 11:24 18 07/11/19 10:54 Room Air 07/11/19 10:00 97.5 75 150/76 (100) 97 07/11/19 00:00 2.0 I&O- Last 24 Hours up to 6 AM 07/11/19 06:00 Intake Total 3960 ml Output Total 4225 ml Balance -265 ml Laboratory Data 24H LABS Laboratory Tests 2 07/11/19 05:34: Immature Granulocyte % (Auto) 0.4, Neutrophils (%) (Auto) 75.7H, Lymphocytes (%) (Auto) 13.8L, Monocytes (%) (Auto) 9.7H, Eosinophils (%) (Auto) 0.1, Basophils (%) (Auto) 0.3, Neutrophils # (Auto) 8.9H, Lymphocytes # (Auto) 1.6, Monocytes # (Auto) 1.1H, Eosinophils # (Auto) 0.0, Basophils # (Auto) 0.0, Nucleated Red Blood Cells % (auto) 0.0, Anion Gap 5L, Glomerular Filtration Rate > 60.0, Calcium Level 8.5 CBC/BMP Laboratory Tests 07/11/19 05:34 ZACH BELL MD July 11, 2019 12:44
[2019-07-12] MEDS: PERCOCET 5MG/325MG TAB PO PRN ×3 (03:12→14:43)
[2019-07-12] MEDS: diazePAM 5 MG TAB PO SCH ×2 (05:21→12:59)
[2019-07-12 06:00] VITALS: BP 117/77
[2019-07-12 06:44] LABS: BASO % 0.3 % (0.0-1.0); EOS % 0.2 % (0.0-3.0); HEMOGLOBIN 13.5 g/dl (13.5-17.5); LYMPH # 1.4 10^3/uL (1.5-5.0); LYMPH % 11.8 % (24.0-44.0); MEAN CORPUSCULAR HEMOGLOBIN 31.5 pg (27.0-33.0); MEAN CORPUSCULAR HGB CONC 33.8 g/dl (32.0-36.5); MEAN CORPUSCULAR VOLUME 93.2 fl (80.0-96.0); MONO # 1.1 10^3/uL (0.0-0.8); MONO % 9.9 % (0.0-5.0); NEUTROPHILS % 77.5 % (36.0-66.0); PLATELET COUNT, AUTOMATED 217 10^3/uL (150-450); RED BLOOD COUNT 4.29 10^6/uL (4.30-6.10); WHITE BLOOD COUNT 11.6 10^3/uL (4.0-10.0)
[2019-07-12 07:09] LABS: BLOOD UREA NITROGEN 12 MG/DL (7-18); CALCIUM LEVEL 8.2 MG/DL (8.5-10.1); CARBON DIOXIDE LEVEL 32 MEQ/L (21-32); CHLORIDE LEVEL 101 MEQ/L (98-107); CREATININE FOR GFR 0.75 MG/DL (0.70-1.30); GLOMERULAR FILTRATION RATE > 60.0 (>56); GLUCOSE, FASTING 105 MG/DL (70-100); SODIUM LEVEL 137 MEQ/L (136-145)
[2019-07-12] MEDS: MULTIVITAMINS/MINERALS THERAP 1 TAB PO SCH (08:52)
[2019-07-12] MEDS: THIAMINE 100 MG TAB PO SCH (08:52)
[2019-07-12] MEDS: ASPIRIN 81 MG ENTERIC TAB PO SCH (08:52)
[2019-07-12] MEDS: FOLIC ACID 1 MG TAB PO SCH (08:52)
[2019-07-12] MEDS: ENOXAPARIN 40MG/0.4ML SYRINGE (J1650 PER 10MG) SC SCH (08:52)
--- NOTE | 2019-07-12 13:44 | IPNPDOC ---
Date Seen The patient was seen on 07/12/19. Progress Note Patient seen and examined. Doing well postoperative day 2 status post bilateral common femoral endarterectomies with patch angioplasty and right to left femorofemoral bypass. He has been out of bed and ambulating in the halls without difficulty. He said both legs feel so much better. He is tolerating high-protein diet. His pain is well controlled. He did complain about a little bit of shooting pain in the right leg last night, but resolved today. This is likely secondary to lower back discomfort and issues with neuropathic pain. The patient says of lower back has been bothering him the last day and half. Other than that, he has no complaints. On exam, his bilateral groin incisions are clean dry and intact. Both incisions were thoroughly cleaned and dry dressings were applied. He has a strong signal over his bypass. He has weak DP and PT signals on the right, but also has limited tibial flow on the right in named vessels this is not surprising, but his foot is very warm hyperemic with less than 1 second capillary refill. On the left he has monophasic but strong DP and PT signals and his foot is warm hyperemic. Both extremities have 1+ edema, present before surgery as well. I've encouraged the patient to elevate his legs when he is in bed. Overall, were pleased with his progress. Okay for discharge from a vascular surgery standpoint. The patient should follow up in 1 week to check incisions, 2-3 weeks for staple removal. He should showered daily with dressings off. Soap and water to both groins. Pat dry after the shower with clean towels. Dry dressings to both groins with paper tape. No lifting greater than 5 pounds or strenuous exercise for 2 weeks, or until incisions are completely healed. Okay to ambulate. Okay to go up and down stairs. No driving while taking narcotic medications. Patient will need a prescription to [facility] for clopidogrel 75 mg by mouth daily #30 with 2 refills, and Percocet 1 tab by mouth every 6 hours when necessary pain #20. We appreciate hospitalist assistance with this patient and look forward to seeing him back in clinic in a week. VS, I&O, 24H, Fishbone Vital Signs/I&O Vital Signs Date Time Temp Pulse Resp B/P (MAP) Pulse Ox O2 Delivery O2 Flow Rate FiO2 07/12/19 09:23 18 Room Air 07/12/19 06:00 98.1 78 117/77 (90) 97 07/11/19 00:00 2.0 I&O- Last 24 Hours up to 6 AM 07/12/19 05:59 Intake Total 620 ml Output Total 3500 ml Balance -2880 ml Laboratory Data 24H LABS Laboratory Tests 2 07/12/19 05:47: Immature Granulocyte % (Auto) 0.3, Neutrophils (%) (Auto) 77.5H, Lymphocytes (%) (Auto) 11.8L, Monocytes (%) (Auto) 9.9H, Eosinophils (%) (Auto) 0.2, Basophils (%) (Auto) 0.3, Neutrophils # (Auto) 9.0H, Lymphocytes # (Auto) 1.4L, Monocytes # (Auto) 1.1H, Eosinophils # (Auto) 0.0, Basophils # (Auto) 0.0, Nucleated Red Blood Cells % (auto) 0.0, Anion Gap 4L, Glomerular Filtration Rate > 60.0, Calcium Level 8.2L CBC/BMP Laboratory Tests 07/12/19 05:47 ZACH BELL MD July 12, 2019 13:44
[2019-07-12 14:00] VITALS: BP 120/76
[2019-07-12] MEDS ORDERED: CLOPIDOGREL 75 MG TAB PO ONE (14:00)
[2019-07-12] MEDS ORDERED: PLAV1TAB2 PO (14:19)
[2019-07-12] MEDS ORDERED: OXYC1TAB23 PO (14:21)
--- NOTE | 2019-07-12 17:49 | HPEPDOC ---
General Date of Admission July 10, 2019 at 06:02 Date of Service: July 10, 2019 Chief Complaint The patient is a 58-year-old male admitted with a reason for visit of Atherosclerosis [place] Vessels Lower Extremities. Source: Patient History of Present Illness The patient is a 58-year-old male with bad PAD, significant daily alcohol use, smoker quit smoking 2 months ago status post right lower extremity angiogram as per Dr. Teran 04/21/19 with recommendation as per Dr. Teran for bilateral common femoral endarterectomy with right to left femoral-femoral bypass graft. Today he was admitted for elective vascular surgery. He underwent Bilateral common femoral endarterectomy with Xenosure patch angioplasty and Right to left femoral-femoral bypass with 6 mm ringed PTFE graft. On my interview He complains of pain in both the groins dull aching about 3/10, no radiation. He says both of his feet are swollen and feel much warm. Though does report that the swelling is not new. Home Medications Scheduled Aspirin (Aspirin) 81 Mg Tab.chew, 1 TAB PO DAILY for pain, (Reported) Cholecalciferol (Vitamin D3) (Vitamin D3) 2,000 Unit Tab.chew, 2,000 UNIT PO DAILY, (Reported) Clopidogrel Bisulfate (Plavix) 75 Mg Tablet, 75 MG PO DAILY Scheduled PRN Ipratropium/Albuterol Sulfate (Iprat-Albut 0.5-3(2.5) mg/3 ml) 3 Ml Ampul.neb, 1 VIAL NEB QIDP PRN for RESPIRATORY DISTRESS, (Reported) Oxycodone HCl/Acetaminophen (Oxycodone-Acetaminophen 5-325) 1 Each Tablet, 1 TAB PO Q6HP PRN for pain Allergies Coded Allergies: No Known Allergies (Unverified , 07/10/19) Past Medical History Medical History PAD COPD Tobacco use Surgical History Left knee surgery Family History Significant Family History: Cancer (mother) A-FIB/CHADSVASC A-FIB History Current/History of A-Fib/PAF?: No Review of Systems Constitutional: Denies: Chills, Fever, Night Sweats Eyes: Denies: Pain, Vision change ENT: Denies: Head Aches, Ear Pain, Dysphagia Skin: Denies: Rash, Lesions, Breakdown Pulmonary: Denies: Dyspnea, Cough Cardiovascular: Denies: Chest Pain, Palpitations, Orthopnea, Paroxysmal Noc. Dyspnea, Lt Headedness Gastrointestinal: Denies: Nausea, Vomiting, Abdominal Pain, Diarrhea Musculoskeletal: Denies: Neck Pain, Back Pain, Joint Pain, Muscle Pain, Spasms Neurological: Denies: Weakness, Numbness, Change in speech, Confusion Physical Examination General Exam: Positive: Alert, Cooperative, No Acute Distress Eye Exam: Positive: PERRLA, Conjunctiva & lids normal, EOMI; Negative: Sclera icteric ENT Exam: Positive: Atraumatic, Mucous membr. moist/pink, Pharynx Normal Neck Exam: Positive: Supple; Negative: JVD, thyromegaly Chest Exam: Positive: Clear to auscultation, Normal air movement Heart Exam: Positive: Rate Normal, Regular Rhythm, Normal S1, Normal S2; Negative: Murmurs, Rubs Abdomen Exam: Positive: Normal bowel sounds, Soft; Negative: Tenderness, Hepatospenomegaly Extremity Exam: Positive: Edema, Other (warm and hyperemic); Negative: Clubbing, Cyanosis Skin Exam: Positive: Nl turgor and temperature; Negative: Breakdown, Lesion Vital Signs Vital Signs Date Time Temp Pulse Resp B/P (MAP) Pulse Ox O2 Delivery O2 Flow Rate FiO2 07/10/19 14:40 99.6 93 13 154/80 (104) 97 Room Air 07/10/19 13:30 2 Laboratory Data Labs 24H Laboratory Tests 2 07/10/19 06:17: Nucleated Red Blood Cells % (auto) 0.0, Prothrombin Time 13.5, Prothromb Time International Ratio 1.05, Activated Partial Thromboplast Time 27.0, Anion Gap 3L, Glomerular Filtration Rate > 60.0, Calcium Level 9.1 CBC/BMP Laboratory Tests 07/10/19 06:17 Assessment/Plan The patient is a 58-year-old male with bad PAD, significant daily alcohol use, smoker quit smoking 2 months ago status post right lower extremity angiogram as per Dr. Teran 04/21/19 with recommendation as per Dr. Teran for bilateral common femoral endarterectomy with right to left femoral-femoral bypass graft. Today he was admitted for elective vascular surgery. He underwent Bilateral common femoral endarterectomy with Xenosure patch angioplasty and Right to left femoral-femoral bypass with 6 mm ringed PTFE graft. PAD S/p b/l femoral endarterectomy and right to left femoro- femoral bypass pain control and dvt prophylaxis as per vascular continue ASA. COPD no isues at present albuterol prn. Alcohol use disorder watch for withdrawal CIWA protocol Plan / VTE VTE Prophylaxis Ordered?: Yes HARRY VARMA MD July 10, 2019 16:12
--- NOTE | 2019-07-12 17:55 | IPNPDOC ---
Subjective Date Seen The patient was seen on 07/11/19. Subjective Chief Complaint/HPI No complaints this morning except for some soreness in both the groins. His legs feel much better and warm. He has been out of bed and walking without much pain. No fever or chills, nochest pain or SOB. Objective Physical Examination General Exam: Positive: Alert, Cooperative, No Acute Distress Eye Exam: Positive: PERRLA, Conjunctiva & lids normal, EOMI; Negative: Sclera icteric ENT Exam: Positive: Atraumatic, Mucous membr. moist/pink, Pharynx Normal Neck Exam: Positive: Supple; Negative: JVD, thyromegaly Chest Exam: Positive: Clear to auscultation, Normal air movement Heart Exam: Positive: Rate Normal, Regular Rhythm, Normal S1, Normal S2; Negative: Murmurs, Rubs Abdomen Exam: Positive: Normal bowel sounds, Soft; Negative: Tenderness, Hepatospenomegaly Extremity Exam: Positive: Edema (1+ edema bilaterally), Other (warm and hyperemic with brisk capillary refill bilaterally. weak dopplerable signals on both feet in the DP and PT. ); Negative: Clubbing, Cyanosis Assessment /Plan Assessment The patient is a 58-year-old male with bad PAD, significant daily alcohol use, smoker quit smoking 2 months ago status post right lower extremity angiogram as per Dr. Teran 04/21/19 with recommendation as per Dr. Teran for bilateral common femoral endarterectomy with right to left femoral-femoral bypass graft. Today he was admitted for elective vascular surgery. He underwent Bilateral common femoral endarterectomy with Xenosure patch angioplasty and Right to left femoral-femoral bypass with 6 mm ringed PTFE graft. PAD S/p b/l femoral endarterectomy and right to left femoro- femoral bypass pain control and dvt prophylaxis as per vascular continue ASA. COPD no isues at present albuterol prn. Alcohol use disorder watch for withdrawal, no withdrawal at present. WA protocol Plan/VTE VTE Prophylaxis Ordered?: Yes VS, I&O, 24H, Fishbone Vital Signs/I&O Vital Signs Date Time Temp Pulse Resp B/P (MAP) Pulse Ox O2 Delivery O2 Flow Rate FiO2 07/12/19 15:13 17 Room Air 07/12/19 14:00 98.4 99 120/76 (91) 96 07/11/19 00:00 2.0 I&O- Last 24 Hours up to 6 AM 07/12/19 07:00 Intake Total 620 ml Output Total 3300 ml Balance -2680 ml Laboratory Data 24H LABS Laboratory Tests 2 07/12/19 05:47: Immature Granulocyte % (Auto) 0.3, Neutrophils (%) (Auto) 77.5H, Lymphocytes (%) (Auto) 11.8L, Monocytes (%) (Auto) 9.9H, Eosinophils (%) (Auto) 0.2, Basophils (%) (Auto) 0.3, Neutrophils # (Auto) 9.0H, Lymphocytes # (Auto) 1.4L, Monocytes # (Auto) 1.1H, Eosinophils # (Auto) 0.0, Basophils # (Auto) 0.0, Nucleated Red Blood Cells % (auto) 0.0, Anion Gap 4L, Glomerular Filtration Rate > 60.0, Calcium Level 8.2L CBC/BMP Laboratory Tests 07/12/19 05:47 HARRY VARMA MD July 12, 2019 17:55
--- NOTE | 2019-07-12 18:06 | DS.PDOC ---
Discharge Summary General Date of Admission July 10, 2019 at 06:02 Date of Discharge 07/12/19 Discharge Summary PROCEDURES PERFORMED DURING STAY: 1. Ultrasound-guided arterial line placement right ulnar artery 2. Bilateral common femoral endarterectomy with Xenosure patch angioplasty 3. Right to left femoral-femoral bypass with 6 mm ringed PTFE graft DISCHARGE DIAGNOSES: PAD s/p bilateral femoral endarterectomies and right to left femoro-femoro bypass. SECONDARY DIAGNOSIS: COPD, Alcohol use disorder, Exsmoker quit few months. COMPLICATIONS/CHIEF COMPLAINT: Atherosclerosis [place] Vessels Lower Extremities. HISTORY OF PRESENT ILLNESS: See History and physical HOSPITAL COURSE: The patient is a 58-year-old male with bad PAD, significant daily alcohol use, smoker quit smoking 2 months ago status post right lower extremity angiogram as per Dr. Teran 04/21/19 with recommendation as per Dr. Teran for bilateral common femoral endarterectomy with right to left femoral-femoral bypass graft. Today he was admitted for elective vascular surgery. He underwent Bilateral common femoral endarterectomy with Xenosure patch angioplasty and Right to left femoral-femoral bypass with 6 mm ringed PTFE graft. PAD S/p b/l femoral endarterectomy and right to left femoro- femoral bypass pain control and dvt prophylaxis as per vascular continue ASA and plavix COPD no isues at present albuterol prn. Alcohol use disorder watch for withdrawal, no withdrawal at present. [facility] protocol DISCHARGE MEDICATIONS: Please see below. ALLERGIES: Please see below. PHYSICAL EXAMINATION ON DISCHARGE: VITAL SIGNS: Please see below. General Exam: Positive: Alert, Cooperative, No Acute Distress Eye Exam: Positive: PERRLA, Conjunctiva & lids normal, EOMI; Negative: Sclera icteric ENT Exam: Positive: Atraumatic, Mucous membr. moist/pink, Pharynx Normal Neck Exam: Positive: Supple; Negative: JVD, thyromegaly Chest Exam: Positive: Clear to auscultation, Normal air movement Heart Exam: Positive: Rate Normal, Regular Rhythm, Normal S1, Normal S2; Negative: Murmurs, Rubs Abdomen Exam: Positive: Normal bowel sounds, Soft; Negative: Tenderness, Hepatospenomegaly Extremity Exam: Positive: Edema (1+ edema bilaterally), Other (warm and hyperemic with brisk capillary refill bilaterally. weak dopplerable signals on both feet in the DP and PT. ); Negative: Clubbing, Cyanosis LABORATORY DATA: Please see below. ACTIVITY: As instructed by vascular surgery DIET: Hi protein DISPOSITION: 01 Home, Self-Care. DISCHARGE INSTRUCTIONS: Dr Zuniga in 1 week for incision check PMD in 2 to 3 weeks DISCHARGE CONDITION: [Stable]. TIME SPENT ON DISCHARGE: 35 minutes. Vital Signs/I&Os Vital Signs Date Time Temp Pulse Resp B/P (MAP) Pulse Ox O2 Delivery O2 Flow Rate FiO2 07/12/19 15:13 17 Room Air 07/12/19 14:00 98.4 99 120/76 (91) 96 07/11/19 00:00 2.0 I&O- Last 24 Hours up to 6 AM 07/12/19 07:00 Intake Total 620 ml Output Total 3300 ml Balance -2680 ml Laboratory Data Labs 24H Laboratory Tests 2 07/12/19 05:47: Immature Granulocyte % (Auto) 0.3, Neutrophils (%) (Auto) 77.5H, Lymphocytes (%) (Auto) 11.8L, Monocytes (%) (Auto) 9.9H, Eosinophils (%) (Auto) 0.2, Basophils (%) (Auto) 0.3, Neutrophils # (Auto) 9.0H, Lymphocytes # (Auto) 1.4L, Monocytes # (Auto) 1.1H, Eosinophils # (Auto) 0.0, Basophils # (Auto) 0.0, Nucleated Red Blood Cells % (auto) 0.0, Anion Gap 4L, Glomerular Filtration Rate > 60.0, Calcium Level 8.2L CBC/BMP Laboratory Tests 07/12/19 05:47 Discharge Medications Scheduled Aspirin (Aspirin) 81 Mg Tab.chew, 1 TAB PO DAILY for pain, (Reported) Cholecalciferol (Vitamin D3) (Vitamin D3) 2,000 Unit Tab.chew, 2,000 UNIT PO DAILY, (Reported) Clopidogrel Bisulfate (Plavix) 75 Mg Tablet, 75 MG PO DAILY Scheduled PRN Ipratropium/Albuterol Sulfate (Iprat-Albut 0.5-3(2.5) mg/3 ml) 3 Ml Ampul.neb, 1 VIAL NEB QIDP PRN for RESPIRATORY DISTRESS, (Reported) Oxycodone HCl/Acetaminophen (Oxycodone-Acetaminophen 5-325) 1 Each Tablet, 1 TAB PO Q6HP PRN for pain Allergies Coded Allergies: No Known Allergies (Unverified , 07/10/19) HARRY VARMA MD July 12, 2019 18:06
== END 2019-07-12 15:44 | disposition home or self-care (01) | DRG 254 ==
LOC: M OR 06:02 → M MSPAV 14:11
PROVIDERS: ADMIT Surgery Vascular Surgery; ATTEND Surgery Vascular Surgery
PROC: 041K0JJ Bypass Right Femoral Artery to Left Femoral Artery with Synthetic Substitute, Open Approach (ICD-10-PCS; 2019-07-10)
PROC: 04UL0JZ Supplement Left Femoral Artery with Synthetic Substitute, Open Approach (ICD-10-PCS; 2019-07-10)
PROC: 04UK0JZ Supplement Right Femoral Artery with Synthetic Substitute, Open Approach (ICD-10-PCS; 2019-07-10)
PROC: 04CL0ZZ Extirpation of Matter from Left Femoral Artery, Open Approach (ICD-10-PCS; principal; 2019-07-10 07:30)
PROC: 04CK0ZZ Extirpation of Matter from Right Femoral Artery, Open Approach (ICD-10-PCS; 2019-07-10 07:30)
DX: I70.213 Atherosclerosis of native arteries of extremities with intermittent claudication, bilateral legs (principal); Z87.891 Personal history of nicotine dependence; J44.9 Chronic obstructive pulmonary disease, unspecified; Z79.82 Long term (current) use of aspirin; Z79.899 Other long term (current) drug therapy; F10.10 Alcohol abuse, uncomplicated

== ENCOUNTER → 2019-08-11 | Outpatient (CLI) | payer OTHER ==
[~2019-08-11] MED LIST changes: +OXYC1TAB23 PO; +PLAV1TAB2 PO
--- NOTE | 2019-08-12 06:00 | REP ---
Clinical: Symptoms related to atherosclerotic disease and intermittent claudication. Technique: Real time garcia scale and color Doppler evaluation of the bilateral lower extremity arterial vasculature using linear high frequency transducer. Findings: A patent right to left femoral - femoral bypass graft is noted. The right iliac artery demonstrates increased velocity. Right superficial femoral artery is occluded with collateral revascularization at the level of the distal superficial femoral artery. Distal flow demonstrated decreased velocities. Monophasic wave patterns noted throughout the right lower extremity. The left iliac artery demonstrates no obvious flow. The left superficial femoral artery is occluded with collateral revascularization at the level of the distal superficial femoral artery. Monophasic wave patterns noted throughout the left lower extremity. Peak systolic velocities (cm/sec) RIGHT LEFT Common femoral artery 186.4 209.5 Profunda femoris 170.1 110.1 SFA (proximal) occluded occluded SFA (mid) occluded occluded SFA (distal) 37.3 36.8 Popliteal artery 51.2 74.3 SALLY (prox.) 8.6 20.5 Tibioperoneal trunk 43.5 53.0 TISSUE INSERTER (prox.) 7.0 27.1 TISSUE INSERTER (distal) 6.6 23.4 SALLY (distal) 4.0 13.7 Fem-Fem BPG (anastomoses) 103.6 105.7 Fem-Fem BPG (right proximal) 134.4 Fem-Fem BPG (mid graft) 138.8 Fem-Fem BPG (left distal) 157.7 Impression: 1. Patent femoral - femoral bypass graft. 2. Atherosclerotic changes as described above including a areas of occlusion, diffuse monophasic wave patterns, and decreased velocities. Electronically Signed by Geovani Salamanca MD 08/12/2019 05:52 A
== END ==
LOC: M RAD 12:19
PROVIDERS: ATTEND Physician Assistant
DX: I70.213 Atherosclerosis of native arteries of extremities with intermittent claudication, bilateral legs (principal); Z95.828 Presence of other vascular implants and grafts

== ENCOUNTER → 2019-09-21 | Outpatient (CLI) | payer OTHER ==
[~2019-09-21] MED LIST changes: +ISOVUE-370 76% 100ML VIAL As Ordered ONE
--- NOTE | 2019-09-21 11:01 | REP ---
CT ANGIOGRAPHY OF THE ABDOMEN, PELVIS, AND RUNOFF LOWER EXTREMITY ARTERIES WITH IV CONTRAST: HISTORY: Atherosclerotic disease with claudication bilateral lower extremities. Pain in the leg. 100 mL of intravenous Isovue [address] TECHNIQUE: Helical scanning is acquired and 3 mm axial images reformatted. Coronal and sagittal MPR, MIP, and 3D surface rendered rotational images are generated. CT ANGIOGRAPHIC FINDINGS: Nonvascular CT findings include a mild levoconvex lumbar curvature and degenerative spondylosis changes. There are mildly enlarged inguinal lymph nodes bilaterally, one on each side. On the right this measures 2.5 x 1.7 cm and on the left 2.4 x 1.7 cm. There are smaller inguinal lymph nodes noted bilaterally. On the left, there is an inguinal node measuring 1.2 x 1.5 cm. This may be related previous surgery. The suprarenal and infrarenal abdominal aorta are normal in caliber with moderate calcific plaquing. There is calcific plaquing at the origin of the celiac axis with less than 50% stenosis. There is a mixed calcific and non-calcific plaque in the proximal superior mesenteric artery, 8 mm beyond its origin, this produces 75-80% of luminal narrowing. The inferior mesenteric artery is patent but has a stenotic origin as well. There is calcific plaquing at the origins of singular renal arteries bilaterally without evidence of high-grade stenosis on either side. The left common iliac artery is occluded at its origin. There is evidence of reconstituted flow in the left internal iliac artery distribution but not the external iliac artery. There is a cybzh-cz-qxjs fem-fem crossover graft which appears patent. However, there is significant disease in the mid and distal common iliac artery on the right with extensive calcific plaquing and 75% luminal narrowing. The right internal iliac artery is widely patent. The right external iliac artery shows high-grade stenosis at mid pelvic level, 75%. The anastomosis with a crossover graft is widely patent. The right profunda femoral artery is patent but stenotic at its origin. The [place] right superficial femoral artery is occluded. There are profunda generated collaterals which reconstitute the distal superficial femoral artery at the level of the adductor canal and extensive plaquing is seen in the popliteal with multiple stenoses. There is calcific plaquing in the right tibioperoneal trunk. There are a three-vessel calf runoff patency to just above the ankle. Anterior and posterior tibial arteries are patent across the ankle. On the left, there is an occlusion of the proximal superficial femoral artery. Profunda generated collaterals reconstitute the left distal SFA at the level of the adductor canal. Extensive plaquing is seen in the popliteal artery. There is calcific plaquing at the origin of the anterior tibial artery on the left. Three-vessel calf runoff is seen to the ankle. IMPRESSION: 1. 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 2. 75% stenosis of the SMA, just beyond its origin. 3. 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 4. Extensive calcific atherosclerotic plaquing diffusely. 5. Left common iliac artery occlusion. 6. 75% stenosis right common iliac artery. 7. 75% stenosis right external iliac artery. 8. Bilateral SFA occlusions with reconstitution of the adductor canal and significant calcific plaquing in the popliteal and tibioperoneal trunk bilaterally. 9. Intact three-vessel calf runoff bilaterally. 10. Mild bilateral inguinal lymphadenopathy. Electronically Signed by Luis Carlos Nolasco MD 09/21/2019 04:16 P
== END ==
LOC: M RAD 07:43
PROVIDERS: ATTEND Physician Assistant
DX: I70.213 Atherosclerosis of native arteries of extremities with intermittent claudication, bilateral legs (principal); M79.606 Pain in leg, unspecified
CPT/HCPCS: 75635; Q9967

== ENCOUNTER → 2019-10-14 | Outpatient (CLI) | payer OTHER ==
[~2019-10-14] MED LIST changes: +ISOVUE-300 61% 50ML VIAL As Ordered ONE; -ISOVUE-370 76% 100ML VIAL As Ordered ONE; +LIDOCAINE 1% MDV 20ML VIAL As Ordered ONE; +MIDAZOLAM INJ 2MG/2ML VIAL (J2250 PER 1MG) As Ordered ONE; +fentaNYL 100 MCG/2 ML INJECTION (J3010) As Ordered ONE
[2019-11-20 11:15] LABS: HEMATOCRIT 43.9 % (42.0-52.0); HEMOGLOBIN 14.7 g/dl (13.5-17.5); MEAN CORPUSCULAR HEMOGLOBIN 30.8 pg (27.0-33.0); MEAN CORPUSCULAR HGB CONC 33.5 g/dl (32.0-36.5); MEAN CORPUSCULAR VOLUME 91.8 fl (80.0-96.0); PLATELET COUNT, AUTOMATED 250 10^3/uL (150-450); RED BLOOD COUNT 4.78 10^6/uL (4.30-6.10); WHITE BLOOD COUNT 5.7 10^3/uL (4.0-10.0)
[2019-12-13 06:44] LABS: BLOOD UREA NITROGEN 14 MG/DL (7-18); CALCIUM LEVEL 9.2 MG/DL (8.5-10.1); CARBON DIOXIDE LEVEL 31 MEQ/L (21-32); CHLORIDE LEVEL 106 MEQ/L (98-107); CREATININE FOR GFR 0.91 MG/DL (0.70-1.30); GLOMERULAR FILTRATION RATE > 60.0 (>56); GLUCOSE, FASTING 93 MG/DL (70-100); POTASSIUM SERUM 4.7 MEQ/L (3.5-5.1); SODIUM LEVEL 140 MEQ/L (136-145)
--- NOTE | 2020-01-08 18:24 | ROOPDOC ---
[facility] Report Of Operation Report of Operation DATE OF PROCEDURE: 10/14/19 PREPROCEDURE DIAGNOSES: Atherosclerosis in the [place] arteries with lifestyle limiting claudication POSTPROCEDURE DIAGNOSES: Same PROCEDURE: 1. Ultrasound-guided access right common femoral artery 2. Aortoiliofemoral arteriogram 3. Stenting right iliac system from external iliac artery to proximal common iliac artery with 7 x 37, 9 x 57, 9 x 57, and 10 x 25 express stents 4. 8 x 39 covered balloon expandable stent placement external iliac artery for extravasation 5. Completion arteriogram 6. Mynx closure right common femoral artery SURGEON: Zach Teran MD ANESTHESIA: Local anesthesia 10 mL lidocaine. Moderate intravenous conscious sedation was supervised by Dr. Teran. The patient was independently monitored by registered nurse assigned to the Department of radiology using automated blood pressure, EKG, and pulse oximetry. Detailed sedation record is permanently stored in the hospital information system. The following is a brief sedation record: Start time 07:52, stop time 08:59, Versed 0.5 mg IV, fentanyl 25 g IV, heparin 4000 units IV. CONTRAST: 32 mL Isovue-300 INDICATION FOR PROCEDURE: This a very pleasant 59-year-old gentleman with a history of severe bilateral lower extremity atherosclerosis in the [place] arteries and left iliac artery known occlusion with a history of a right to left femoral-femoral bypass. The patient started having increased claudication lower extremities and repeat arterial duplex suggested increasing stenosis of the right iliac inflow which supplies flow to both legs. Risks benefits alternatives to an arteriogram and potential intervention were explained to the patient he was agreeable to proceed. Informed consent was obtained. INTERPRETATION: The distal aorta is heavily calcified ectatic but patent. There is a complete occlusion of the left iliac system, known. The right common iliac artery, external iliac artery are both stenotic with intermittent areas of 30- 80% stenosis. The hypogastric is patent. It supplies some collateral flow to the left side. The [id number]-[id number] femorofemoral bypass is patent. REPORT OF OPERATION: The patient was brought to the angiographic suite in stable condition. His bilateral groins were prepped and draped in a sterile fashion. A timeout was performed. Sedation was administered without complication. Ultrasou nd was used to guide access to the right common femoral artery after anesthetizing with local anesthesia. A microneedle was used to access the artery and a wire was passed through this access and a 4 Cymro sheath was placed and flushed with saline. A Glidewire and on the flushed catheter were advanced into the distal aorta. Aortoiliofemoral arteriogram was performed, please see in terpretation above. We then exchanges sheath over the wire for 7 Cymro sheath and a 7 x 37 expressed that was placed at the distal external iliac artery. This was extended proximally with a 9 x 57 expressed stent with a 1 cm overlap. After deploying the stent, a quick arteriogram was performed to make sure we did not have extravasation, as the patient had quite a bit of pain with expansion of the stent. We did note a small amount of extravasation. We quickly placed a 9 x 40 [place] balloon across the area to prevent further extravasation. We then selected and 8 x 39 covered stent, and quickly remove the balloon and deployed the stent under fluoroscopic guidance. We were able to exclude the area without covering the hypogastric and preserved flow through the hypogastric artery. We postdilated that with a 9 x 40 balloon. We then extended the stent proximally with a 9 x 57 expressed stent and extended this into the very proximal common iliac artery and distal aorta with a 10 x 25 express stent. After stenting, there was widely patent flow through the common iliac artery hypogastric and external iliac artery and improved flow through the femorofemoral bypass. There was an excellent pulse of the right femoral vessel. We then do [place] Mynx closure device and held pressure for 10 minutes for good hemostasis. Sterile dressings were applied and the patient was taken to recovery in stable con dition. He tolerated the procedure and the sedation well. ESTIMATED BLOOD LOSS: Approximately 5 mL. COMPLICATIONS: None. PLAN: It is okay to resume home diet and medications. We will see the patient back in a week to check his groin access site in his perfusion. We appreciate the opportunity to participate in the care of this patient. ZACH TERAN MD Jan 08, 2020 18:24
== END ==
LOC: M IRPRO 06:24 → M RAD 06:24
PROVIDERS: ATTEND Surgery Vascular Surgery
DX: I70.213 Atherosclerosis of native arteries of extremities with intermittent claudication, bilateral legs (principal); I70.92 Chronic total occlusion of artery of the extremities; J44.9 Chronic obstructive pulmonary disease, unspecified; Z72.0 Tobacco use; Z79.01 Long term (current) use of anticoagulants; Z79.82 Long term (current) use of aspirin; Z79.899 Other long term (current) drug therapy; Z95.828 Presence of other vascular implants and grafts
CPT/HCPCS: 37221; 75630; 80048; 85027; 99152; 99153; C1725; C1760; C1769; C1876; C1887; C1894; J1644; J2250; J3010; Q9967

== ENCOUNTER → 2019-11-23 | Outpatient (CLI) | payer OTHER ==
[~2019-11-23] MED LIST changes: -ISOVUE-300 61% 50ML VIAL As Ordered ONE; -LIDOCAINE 1% MDV 20ML VIAL As Ordered ONE; -MIDAZOLAM INJ 2MG/2ML VIAL (J2250 PER 1MG) As Ordered ONE; -fentaNYL 100 MCG/2 ML INJECTION (J3010) As Ordered ONE
== END ==
LOC: M RAD 09:52
PROVIDERS: ATTEND Physician Assistant
DX: I70.213 Atherosclerosis of native arteries of extremities with intermittent claudication, bilateral legs (principal); Z95.828 Presence of other vascular implants and grafts

== ENCOUNTER → 2019-12-18 | Outpatient (CLI) | payer OTHER ==
--- NOTE | 2019-12-18 14:30 | REP ---
INDICATION: RT LOWER EXT ATHSCOL OF [place] OF EXT W/ CLAUDICAT VEIN MAPPING COMPARISON: None. TECHNIQUE: Vasquez scale and color Doppler evaluation using linear high frequency transducer. FINDINGS: Ultrasound examination of the right lower extremity deep venous structures from the common femoral vein to the popliteal vein demonstrates normal compressibility flow and wave patterns in response to respiration and augmentation. There is no evidence for deep venous thrombosis. With the bed tipped, greater saphenous vein measures: 4.8 mm diameter at the origin, 2.9 mm diameter at the mid thigh, 1.7 mm diameter at the distal thigh, 2.0 mm diameter at the proximal calf, 1.5 mm diameter at the mid calf, 2.2 mm diameter at the distal calf. With the bed tipped, lesser saphenous vein (originates at the midthigh level) measures: 1.6 mm diameter at the midthigh, 1.4 mm diameter at the distal thigh, 1.9 mm diameter at the proximal calf, 2.8 mm diameter at the mid calf, 1.8 mm diameter at the distal calf. IMPRESSION: 1. No evidence for deep venous thrombosis. 2. Greater saphenous vein and lesser saphenous vein diameters as described above. <Electronically signed by Geovani Salamanca > 12/18/19 [id number]
== END ==
LOC: M RAD 12:23
PROVIDERS: ATTEND Physician Assistant
DX: Z01.818 Encounter for other preprocedural examination (principal); I70.213 Atherosclerosis of native arteries of extremities with intermittent claudication, bilateral legs

== ENCOUNTER → 2020-02-24 | Outpatient (CLI) | payer OTHER ==
[~2020-02-24] MED LIST changes: +BAYE81TA10 PO; +D31000CA4 PO
== END ==
LOC: M LABSMTC 09:41
PROVIDERS: ATTEND Anesthesiology
DX: Z01.812 Encounter for preprocedural laboratory examination (principal); Z20.828 Contact with and (suspected) exposure to other viral communicable diseases

== ENCOUNTER 2020-02-29 07:51 | Inpatient (IN) | payer OTHER ==
--- NOTE | 2020-02-12 14:10 | HPEPDOC ---
[facility] Medical History & Physical Date of Admission Feb 29, 2020 Date of Service: Feb 29, 2020 History and Physical Vascular surgery. Dr. Teran HISTORY OF PRESENT ILLNESS: The patient is a 59-year-old male S/P bilateral common femoral endarterectomy with Xenosure patch angioplasty and Right to left femoral-femoral bypass with 6 mm ringed PTFE graft 07/10/[address] Teran and right common and external iliac stent 10/14/[address] Teran, has known bilateral SFA occlusions and is doing okay from the left lower extremity perspective with minimal complaints of claudication, but his right lower extremity has continued to have considerable amounts of pain in the right lower extremity both with ambulation, and at rest at night. Plan is to proceed with right femoral below knee popliteal bypass with cadaver vein as per Dr. Teran 02/29/20. The patient has had a vein mapping in the past and does not have suitable saphenous vein. He will need to hold his Plavix 5 days prior to surgery, patient not hold his aspirin. We recommend a statin if the patient can tolerate it for best medical management. PAST MEDICAL HISTORY: COPD PAD History of Tobacco use PAST SURGICAL HISTORY: Bilateral femoral endarterectomy and right to left femoral-femoral bypass Angiogram Left knee surgery SOCIAL HISTORY: Patient states he has continued with smoking cessation since July 2019. FAMILY HISTORY: Reports his mother had cancer ALLERGIES: Please see below. REVIEW OF SYSTEMS: As noted in HPI otherwise 11 point review of systems unremarkable. HOME MEDICATIONS: Please see below. PHYSICAL EXAMINATION: Exam: Const: Appears medically stable. No signs of apparent distress present. Head/Face: Normal on inspection. ENMT: Tympanic membranes: intact. External nose WNL. Neck: Supple, no carotid bruits present Resp: No wheezing. Clear to auscultation bilaterally. CV: Rate is regular. Rhythm is regular. Abdomen: Bowel sounds are positive. Abdomen is soft, nontender, and nondistended. Lymph: No palpable or visible regional lymphadenopathy. Musculo:Gait steady, distal pulses not palpable. Left lower extremity DP and PT signals strongly monophasic, right lower extremity DP PT signals are weakly monophasic. Skin:No rashes or lesions Neuro:Alert and oriented x3, moves all extremities equally, no focal neurologic deficits noted. Psych: Pleasant and cooperative ASSESSMENT/PLAN: 1. Atherosclerosis [place] vessels of lower extremities Plan is to proceed with right femoral below knee popliteal bypass with cadaver vein as per Dr. Teran 02/29/20. The patient has had a vein mapping in the past and does not have suitable saphenous vein. He is instructed to hold Plavix 5 days prior to surgery, patient does not need to hold aspirin. Statin therapy is recommended if the patient can tolerate it for best medical management. Informed consent is obtained and placed with the chart. Transfusion consent is obtained and placed with the chart. Medical clearance has been requested. Cardiac clearance has been requested. Nothing by mouth IV fluids as per anesthesia Admission labs to include CBC, BMP, INR, PTT, type and screen. Ancef 2 g IV preoperatively. Vital Signs Admission vital signs pending. Laboratory Data Labs 24H Admission labs pending. Home Medications Scheduled Aspirin (Aspirin) 81 Mg Tab.chew, 1 TAB PO DAILY for pain Cholecalciferol (Vitamin D3) (Vitamin D3) 2,000 Unit Tab.chew, 2,000 UNIT PO DAILY Clopidogrel Bisulfate (Plavix) 75 Mg Tablet, 75 MG PO DAILY Scheduled PRN Ipratropium/Albuterol Sulfate (Iprat-Albut 0.5-3(2.5) mg/3 ml) 3 Ml Ampul.neb, 1 VIAL NEB QIDP PRN for RESPIRATORY DISTRESS Oxycodone HCl/Acetaminophen (Oxycodone-Acetaminophen 5-325) 1 Each Tablet, 1 TAB PO Q6HP PRN for pain Allergies Coded Allergies: No Known Allergies (Unverified , 07/10/19) A-FIB/CHADSVASC A-FIB History Current/History of A-Fib/PAF?: No Current PO Anticoag Therapy: No Alessandra Bernal Feb 12, 2020 14:10
[~2020-02-29] VITALS: Ht 180.3 cm; Wt 75.2 kg
[~2020-02-29 07:51] MED LIST changes: +LR 1,000 ML IV ONE; +ceFAZolin SOD 2 GM in IV 1 EA IV ONE
[2020-02-29] MEDS ORDERED: SUGAMMADEX SODIUM 500 MG/5 ML VIAL (BRIDION) As Ordered ONE (08:07)
[2020-02-29] MEDS ORDERED: propofoL 200 MG/20 ML VIAL As Ordered ONE (08:12)
[2020-02-29] MEDS ORDERED: LIDOCAINE 2% 100MG/5ML SDV (FOR ANES.) As Ordered ONE (08:12)
[2020-02-29] MEDS ORDERED: ROCURONIUM BROMIDE 50 MG/5 ML VIAL As Ordered ONE ×5 (08:12→18:17)
[2020-02-29] MEDS ORDERED: fentaNYL 100 MCG/2 ML INJECTION (J3010) As Ordered ONE ×7 (08:13→19:42)
[2020-02-29] MEDS ORDERED: MIDAZOLAM INJ 2MG/2ML VIAL (J2250 PER 1MG) As Ordered ONE (08:13)
[2020-02-29] MEDS ORDERED: dexameTHASONE 4 MG/ML 1ML VIAL (J1100 PER 1MG) As Ordered ONE (08:13)
[2020-02-29] MEDS ORDERED: ONDANSETRON 4MG/2ML VIAL As Ordered ONE (08:13)
[2020-02-29 08:31] LABS: HEMATOCRIT 45.7 % (42.0-52.0); HEMOGLOBIN 15.1 g/dl (13.5-17.5); MEAN CORPUSCULAR HEMOGLOBIN 29.7 pg (27.0-33.0); PLATELET COUNT, AUTOMATED 255 10^3/uL (150-450); RED BLOOD COUNT 5.08 10^6/uL (4.30-6.10); WHITE BLOOD COUNT 5.6 10^3/uL (4.0-10.0)
[2020-02-29 08:42] LABS: INR 1.03; PARTIAL THROMBOPLASTIN TIME 27.7 SECONDS (24.2-38.5); PROTHROMBIN TIME 13.7 SECONDS (12.5-14.3)
[2020-02-29 08:52] LABS: BLOOD UREA NITROGEN 12 MG/DL (7-18); CARBON DIOXIDE LEVEL 30 MEQ/L (21-32); CHLORIDE LEVEL 105 MEQ/L (98-107); CREATININE FOR GFR 0.96 MG/DL (0.70-1.30); GLOMERULAR FILTRATION RATE > 60.0 (>56); GLUCOSE, FASTING 107 MG/DL (70-100); POTASSIUM SERUM 4.1 MEQ/L (3.5-5.1); SODIUM LEVEL 139 MEQ/L (136-145)
[2020-02-29] MEDS ORDERED: THROMBIN SOLN 20,000 UNITS KIT As Ordered ONE (09:20)
[2020-02-29] MEDS ORDERED: ISOVUE-300 61% 50ML VIAL As Ordered ONE ×2 (09:20→16:42)
[2020-02-29] MEDS ORDERED: HEPARIN SOD (PORCINE) 5000UNITS/ML 1ML VIAL/SYRINGE As Ordered ONE ×7 (09:21→17:34)
[2020-02-29] MEDS ORDERED: BUPIVACAINE/EPIN 0.5% 30 ML VIAL As Ordered ONE (09:21)
[2020-02-29] MEDS ORDERED: HYDROmorphone HCL 2 MG/ML 1ML VIAL (J1170) As Ordered ONE (12:16)
[2020-02-29] MEDS ORDERED: METOPROLOL 5 MG/5 ML VIAL As Ordered ONE (13:47)
[2020-02-29] MEDS ORDERED: ceFAZolin 2 GM/D5W 50 ML IV BAG (J0690 PER 500MG) As Ordered ONE ×2 (14:30→17:56)
[2020-02-29] MEDS ORDERED: LABETALOL 100MG/20ML VIAL As Ordered ONE (15:11)
[2020-02-29] MEDS ORDERED: ACETAMINOPHEN 1000MG 100ML IV BTL (OFIRMEV) (J0131 PER 10MG) As Ordered ONE (15:15)
[2020-02-29] MEDS ORDERED: hydrALAZINE 20MG/ML 1ML VIAL (J0360 PER 20MG) As Ordered ONE (15:49)
[2020-02-29] MEDS: fentaNYL 100 MCG/2 ML INJECTION (J3010) IV PRN ×4 (19:44→20:00)
[2020-02-29] MEDS: LR 1,000 ML IV SCH (20:00)
[2020-02-29] MEDS ORDERED: oxyCODONE 5MG TAB PO PRN (20:00)
[2020-02-29] MEDS ORDERED: ONDANSETRON 4MG/2ML VIAL IV PRN (20:00)
[2020-02-29] MEDS: HYDROMORPHONE HCL 0.5 MG/ 0.5 ML SYRINGE (J1170 PER 1) IV PRN ×3 (20:08→20:30)
--- NOTE | 2020-02-29 20:34 | ROOPDOC ---
[facility] Report Of Operation Report of Operation DATE OF PROCEDURE: 02/29/20 PREPROCEDURE DIAGNOSES: Atherosclerosis in the [place] arteries with right lower extremity claudication progressing to rest pain POSTPROCEDURE DIAGNOSES: Same PROCEDURE: 1. Right profunda endarterectomy and patch angioplasty with Xenosure patch 2. Redo femoral artery exposure with extensive scarring, 90 minutes 3. Separate right common femoral endarterectomy and patch angioplasty with Xenosure patch 4. Separate right distal external iliac artery endarterectomy and patch angioplasty with Xenosure patch 5. Right femoral to below-knee bypass with cadaver vein, aborted 6. Right femoral to profunda interposition bypass with cadaver vein 7. Arteriogram right iliofemoral arteries 8. Right external iliac to below-knee popliteal bypass with 6 mm ringed PTFE SURGEON: Zach Teran MD ANESTHESIA: Gen. anesthesia and local anesthesia INDICATION FOR PROCEDURE: This a very pleasant 59-year-old patient with end- stage atherosclerosis of the [place] arteries status post multiple endovascular and open interventions in the past. He has undergone a bilateral common femoral endarterectomy with femorofemoral bypass for unilateral iliac occlusive disease, and following this he did well from a left lower extremity standpoint, with only mild claudication on the left, but his right leg has continued to have severe discomfort, now progressing to rest pain at night. His claudication a short distance on the right and takes a long time to recover. I discussed with him that there is a lot of risk involved with trying to do a right femoropopliteal bypass. I was hopeful that improving his inflow would be enough to get him out of the symptoms he had prior to that surgery, but this was not the case. It only accomplished that on the left. The right leg, per the patient, is getting worse and he can no longer tolerate it. We had an extensive discussion about how challenging his vasculature is for open surgery, and the risks for attempting a bypass with extensive scar tissue from previous endovascular and open procedures. He understands these risks and wishes to proceed. We also discussed that this could be a lengthy surgery due to the scar tissue and the friable nature of his vessels, but he is very anxious to proceed and informed consent was obtained. I told him what I would try to do is do a bypass from the right profunda distal to the scar tissue, possibly an endarterectomy if needed at the profunda, and then take the bypass from there down to the below-knee popliteal artery. The patient is agreeable to this plan. INTERPRETATION: The distal iliac arteries and stents are patent on the right, but there is focal stenosis at the distal external iliac artery. There is also limited flow through the common femoral artery to suggest possible thrombosis. The arteriogram was followed with open thrombectomies and revisions of the right ilio-femoral system. REPORT OF OPERATION: The patient was brought to the OR in stable condition and placed supine on your table. General anesthesia and antibiotics were administered without, occasion. The antibiotics were readministered every 4 hours during the case. His right groin and right lower extremity were prepped and draped in a sterile fashion. Ioban was placed over the skin. A timeout was performed. A Doppler was used to map the profunda on the skin. An oblique incision was made over the profunda distal to the previous groin incision from his prior surgery. This is carried down through the subcutaneous tissues with Bovie cautery. We isolated the profunda artery proximally and distally within the incision. It was almost completely occluded with heavy calcified plaque. The wall of the artery appeared somewhat thin. This was a little worrisome, but I was hopeful we would be able to endarterectomized and patch the artery safely. This would certainly be much easier than trying to dissect out the femoral vessels from extensive plaque. Heparin was given by anesthesia and allowed to circulate. We kept the patient extensively heparinize throughout the procedure. ACTs were checked and additional heparin given when needed. The Vesseloops were placed proximally and distally and an arteriotomy was made longitudinally. Near occlusive heavy calcified plaque was noted within the artery. This was carefully endarterectomized. Unfortunately, the artery was very thin and small. Still, I thought it was worthwhile to try to patch it can improve flow. A patch was anastomosed in a running fashion with 6-0 Prolene suture. Before the final sutures are placed, we flushed the inflow and outflow of the artery and then placed the final sutures. Despite our best efforts, the posterior wall of the artery was so thin that in several areas the stitches did not hold. There was significant bleeding. I tried to repair this with a few Prolene sutures, but the wall was too thin. I felt the safest thing to do was replaced artery. Before doing that, we needed to get more proximal control on the femoral vessels. Unfortunately, in the process of trying to work our dissection more proximally and skeletonized up to the origin of the profunda, there were significant scarred bridging veins over the artery that resulted in significant bleeding. Additionally, the profunda proximal to our dissection was very friable and nearly disintegrated with any manipulation or dissection. This also resulted in bleeding. In order to gain hemostasis, a clamp was placed across the origin of the profunda and the mid common femoral artery in the best way I could find. Next, we spent the arduous task of dissecting out the proximal vessels. Extended by incision proximally up to the inguinal ligament and this was carried down to the subcutaneous tissues with Bovie cautery. We then spent 90 minutes trying to dissect out the common femoral artery, origin of the profunda, superficial femoral artery, and this was extremely challenging. There were extensive collate rals and bridging veins and it took a long time to safely dissect out the vessels. An arteriotomy was made on the lateral aspect of the common femoral artery to try to avoid our previous patch angioplasty and the anastomosis for the femorofemoral bypass, and we noted near occlusive intimal hyperplasia within the common femoral artery. This was carefully endarterectomized. We then patched the lateral aspect of the artery with running Prolene suture and before the final sutures are placed we flushed inflow and outflow of the artery. We attempted to salvage the origin of the profunda, but this was not possible. Therefore, we planned to do an interposition femoral to profunda bypass. First, we attempted to do a femoral to below knee bypass with cadaver vein, which was our original plan. An incision was made over the medial calf just below the knee and carried down to the subcutaneous tissue and fascia with Bovie cautery. The muscle was retracted posteriorly and the popliteal vein and artery were identified. We skeletonized the popliteal artery proximally and distally within the incision and Vesseloops were placed. We then tunneled the cadaver vein from our calf incision to the groin incision in the correct orientation. The vein was cut and spatulated. We resecure clamps and Vesseloops proximally and anastomosis the vein to the common femoral artery patch in an end-to-side fashion with 6-0 Prolene suture. Before the final sutures are placed, we flushed inflow and outflow artery and flushed heparinized saline through the vein. The vein flushed easily. We then resorted flow and noted there was only sluggish blood flow through the vein. I wasn't sure if this was due to an inflow issue or problem with the vein. I opened the patch with an 11 blade and a Fogerty was passed proximally distally through the bypass femorofemoral, and we did not find a significant amount of thrombus, but there were a few platelet aggregates that were removed. We continue to give additional heparin. A Jerome catheter was used to try to thrombectomized the femoral vessels multiple times during the case whenever flow seems sluggish, but we did not find a significant amount of clot with any of these efforts. I expected to find thrombosis of the vessels, but overall we found very few platelet aggregates instead. We decided to perform an arteriogram following this due to ongoing sluggish flow in the bypass. We found that there was good flow through the iliac stents, but stenosis at the distal external iliac artery, and sluggish flow through the common femoral artery without flow noted in the bypass or in the femorofemoral bypass. At this point, I was not sure if the problem with the vein or that we needed additional Anticoagulation which was given, or if there was another issue. I definitely felt treating the external iliac artery stenosis would be helpful. Any additional inflow would be good. Therefore we continued her dissection proximally above the circumflex vessels. Vesseloops were placed and the circumflex vessels and we dissected up under the inguinal ligament and proximally 2 cm. A clamp was placed proximally and distally in the Vesseloops were secured an arteriotomy was made in the distal external iliac artery and intimal hyperplasia and bulky plaque were both found and carefully skeletonized and removed. We then patched the artery in a running fashion and before the final sutures are placed, we flushed inflow and outflow and irrigated with heparinized saline. Good hemostasis was noted after placing the patch. Even with this additional inflow, there was no significant flow through the vein even though we were able to easily flushed with saline. We redo the anastomosis twice, but still no flow was noted. At this point I felt we were not going to have any luck with the vein. I did utilize a short segment of the vein in the area that looked the best for a femoral to profunda bypass to salvage flow through the profunda. This bypass was taken off the distal patch in an end-to-side fashion and sewn N to end to the profunda, both with 6-0 Prolene. Flow was confirmed on Doppler after the bypass was performed. I then decided to use a 6 mm ringed PTFE graft to eliminate the variable that there could be something well with the vein. The clamps were placed again at the external iliac artery and the circumflex Vesseloops secured in the common femoral artery clinic placed and we did a proximal anastomosis and end-to-side fashion with 50 hemo static Prolene suture. Before the final sutures are placed, we flushed inflow and outflow. Clamp was placed on the graft to prevent clot from forming the graft while doing the distal anastomosis. The graft was tunneled down to the below-knee incision and then beveled for a tension-free anastomosis and end-to-side fashion with the popliteal artery. We made arteriotomy in the popliteal artery and anastomosed the graft in an end-to-side fashion with hemostatic 6-0 Prolene sutures. Before we place a final sutures, we flushed the inflow and outflow and irrigated with heparinized saline. We had good flow through the bypass graft. Flow was then restored after the final sutures were placed. We had good Doppler flow in the popliteal artery and the profunda it common femoral and iliac arteries. There was a pulse in the femorofemoral bypass. We irrigated with copious amounts of heparinized saline at the groin incision and at the knee. The deep layers were approximated carefully over the graft with running 2-0 Vicryl suture. The fascial layers were closed in 2 layers at the knee and 3 layers at the groin with running 2-0 Vicryl suture. The superf icial layers were approximated with running 2-0 Vicryl suture in the groin. The deep dermal layers at the knee and the groin were approximated with interrupted 4-0 Vicryl sutures. The skin was closed both incisions with skin luz after cleaning the skin thoroughly. Local anesthesia was administered to the skin and subcutaneous tissue prior to closing. Next, 4 x 4's and Tegaderms were placed over the incisions. The patient was allowed to awaken from anesthesia was taken to recovery in stable condition. Despite our best efforts, I am worried about long-term perfusion. I'm still not convinced that his profound vascular disease will make his recovery challenging. It is possible his bypasses will fail. However, I am hopeful that all the work we did today will relieve some of his discomfort and allow limb salvage at least for a period of time. ESTIMATED BLOOD LOSS: Approximately 1000 mL. SPECIMENS: Right profunda iliac and femoral plaque sent for pathology COMPLICATIONS: There were no complications with the surgery, but it was an extremely challenging due to extreme intimal hyperplasia, near occlusive plaque, thin friable arterial sierra, previous surgical interventions, end-stage vascular disease with limited options. PLAN: We will keep the patient on a heparin drip for now. We are hopeful that his perfusion will improve after extensive revascularization, but he is at risk for failure of his pre-existing femorofemoral bypass, which would put his left leg at wrist, and for failure of his new femoropopliteal bypass and profunda bypass on the right due to the extreme challenges we faced intraoperatively today. He will be on bed rest overnight, then we will slowly increase his activity as tolerated in the morning. Physical therapy and occupational therapy haven't been ordered. We will discontinue the Jerome in the morning as well. I discussed the patient's very tenuous prognosis for limb salvage with his family. His daughter and her are aware and understand that he is at risk for amputation, possibly on this hospitalization depending on his progress. However, at this point I am hopeful that our efforts will be successful. ZACH TERAN MD Feb 29, 2020 20:34
[2020-02-29] MEDS: HEPARIN DRIP 25,000 UNITS in IV 1 EA IV SCH (20:50)
[2020-02-29] MEDS ORDERED: HYDROmorphone 2 MG TAB PO PRN (21:00)
[2020-02-29] MEDS ORDERED: PERCOCET 5MG/325MG TAB PO PRN (21:00)
[2020-02-29 21:40] VITALS: BP 140/92
[2020-02-29 22:10] VITALS: BP 138/90
[2020-02-29 22:40] VITALS: BP 146/82
[2020-02-29] MEDS ORDERED: IPRA0.00 NEB (22:43)
--- NOTE | 2020-02-29 22:56 | CR.PDOC ---
General Date of Consultation: Feb 29, 2020 Referring Provider: ZACH TERAN MD Attending Physician: RAY CISNEROS MD Consultation REASON FOR CONSULTATION/CHIEF COMPLAINT: For medical management S/p right lower extremity revascularization surgery HISTORY OF PRESENT ILLNESS: Mr. Diaz is a 59 year old male patient with end- stage atherosclerosis of [place] valves status post multiple endovascular surgeries to bilateral lower extremities, S/P bilateral common femoral endarterectomy with Xenosure patch angioplasty and Right to left femoral-femoral bypass with 6 mm ringed PTFE graft 07/10/[address] Teran and right common and external iliac stent 10/14/[address] Teran, peripheral artery disease, COPD. He reports having claudication pain in right lower extremity with ambulation and rest, for which he was was scheduled for revascularization surgery done by Dr. Teran today [02/29/2020]. He reports having pain in his leg of about 4/10, numbness behind his knees following the surgery. ALLERGIES: Please see below. HOME MEDICATIONS: Please see below. PAST MEDICAL HISTORY: 1. COPD 2. PAD PAST SURGICAL HISTORY: 1. Bilateral femoral endarterectomy and right to left femoral-femoral bypass 2. Angiogram 3. Left knee surgery FAMILY HISTORY: Mother has history of cancer. SOCIAL HISTORY: Tobacco use: Quit in May 2019, up till then smoked for 40 years about 1 pack a day ETOH: 3-4 times per week, drinks 4-5 beers. Illicit drug use: Denied IV drug use: Denied REVIEW OF SYSTEMS: REVIEW OF SYSTEMS: As per HPI otherwise 11 point review of systems unremarkable. PHYSICAL EXAMINATION: VITAL SIGNS: Please see below. General: Patient is awake, alert, no apparent distress. HEENT: Normal on inspection Cardiovascular: S1, S2, normal rhythm, no murmur, rub, or gallop. Respiratory: Chest is clear to auscultation bilaterally, No rhonchi, wheezes or rubs. Abdomen: Soft, bowel sounds positive, no bruits. No tenderness on palpation. Extremities: Distal pulses not palpable in lower extremities, No clubbing or cyanosis. No edema, no tenderness. Central nervous system (MANAGER QUANTITATIVE): Awake, alert and fully oriented. Touch sensation noted in bilateral lower extremities. Skin: No rashes, lesions, ulcerations. LABORATORY DATA: Please see below. ASSESSMENT/PLAN: Patient is in 59-year-old male with peripheral artery disease, COPD, extensive atherosclerosis of bilateral lower extremities. Today he was being admitted following an elective vascular surgery done by Dr. Teran, right femur oral below knee popliteal bypass with cadaver vein. 1. Atherosclerotic [place] vessels of the lower extremities: - Patient is status post surgery of his right femoral below knee popliteal bypass with cadaver vein an extensive surgery by Dr. Teran. - Will continue him on heparin drip for now( per Dr. Teran). - Bedrest overnight, later slow increase in activity as tolerated in the morning. - Will DC the Jerome in the morning - Will start on Regular diet. - Will hold Plavix for now. - Pain management as per vascular. 2. Peripheral artery disease: - Status post bilateral femoral endarterectomy and right and left Femoro femoral bypass. - Pain and DVT prophylaxis as per vascular - Continue aspirin 3. COPD: - Will continue home medication albuterol nebulization. Vital Signs/I&O Vital Signs Date Time Temp Pulse Resp B/P (MAP) Pulse Ox O2 Delivery O2 Flow Rate FiO2 02/29/20 21:20 118 22 178/77 (110) 96 Nasal Cannula 2 02/29/20 20:32 99.1 Laboratory Data Labs 24H Laboratory Tests 2 02/29/20 08:07: Nucleated Red Blood Cells % (auto) 0.0, Prothrombin Time 13.7, Prothromb Time International Ratio 1.03, Activated Partial Thromboplast Time 27.7, Anion Gap 4L, Glomerular Filtration Rate > 60.0, Calcium Level 9.0 02/29/20 21:10: CBC/BMP Laboratory Tests 02/29/20 08:07 Allergies Coded Allergies: No Known Allergies (Unverified , 07/10/19) Home Medications Scheduled Aspirin (Low Dose Aspirin EC) 81 Mg Tablet.dr, 81 MG PO DAILY, (Reported) Clopidogrel Bisulfate (Plavix) 75 Mg Tablet, 75 MG PO DAILY for 30 Days, #30 Scheduled PRN Ipratropium/Albuterol Sulfate (Iprat-Albut 0.5-3(2.5) mg/3 ml) 3 Ml Ampul.neb, 1 VIAL NEB QIDP PRN for RESPIRATORY DISTRESS for 30 Days, #60 Miscellaneous Medications Cholecalciferol (Vitamin D3) (Vitamin D3) 25 Mcg Capsule, 25 MCG PO, (Reported) GME ATTESTATION GME ATTESTATION My faculty preceptor for this patient encounter was physically present during the encounter and was fully available. All aspects of the patient interview, examination, medical decision making process, and medical care plan development were reviewed and approved by the faculty preceptor. The faculty preceptor is aware and concurs with the plan as stated in the body of this note and will attest to such by his/her cosignature. ATTENDING NOTE TIME OF SERVICE 422AM is a 59 yr old smoker with a hx of COPD, PAD, L fem fem bypass & bilateral fem endarterectomy who underwent multiple vascular procedures on the right side on the evening of Feb 28; we were consulted for medical co- management. #PVD - management per Primary team #Tachycardia - EKG, TSH, Trop, Mg, IVF, BNP # Tobacco abuse - smoking cessation education Rest per 's H&P LATE ENTRY 813AM #Hypomagnesemia - replete K Fady Lopez MD Feb 29, 2020 22:16 RAY CISNEROS MD Mar 01, 2020 03:53
[2020-02-29] MEDS ORDERED: IPRATROPIUM 0.5MG/ALBUTEROL 2.5MG INH SOL UD 3ML (DUONEB) NEB PRN (23:00)
[2020-02-29 23:40] VITALS: BP 140/82
[2020-03-01] VITALS (10 sets, daily range): BP systolic 138–164; BP diastolic 76–86; O2SAT 91–94
[2020-03-01 01:04] LABS: MAGNESIUM LEVEL 1.5 MG/DL (1.8-2.4); NT-PRO BNP 328 PG/ML (<125); TROPONIN I < 0.02 NG/ML (< 0.10)
[2020-03-01] MEDS: NS 1,000 ML IV SCH ×3 (01:16→14:11)
[2020-03-01] MEDS: HYDROmorphone 2 MG TAB PO PRN ×3 (02:45→21:05)
[2020-03-01] MEDS: MAG SULF 1GM/100ML (MAG RUN) 1 GM in IV 1 EA IV SCH ×2 (03:16→04:26)
--- NOTE | 2020-03-01 06:10 | ECGEPIP ---
[facility] Test Date: 2020-03-01 Pat Name: ROSMERY KAYE Department: Room: [place] [address] Gender: Male Fur Dyer: : 1960 Requested By: RAY CISNEROS Order Number: [id number] Reading MD: Slade Fabian Measurements Intervals Newcomb Rate: 102 P: 49 MS: 136 QRS: 15 QRSD: 95 T: 52 QT: 330 QTc: 431 Interpretive Statements Sinus tachycardia Low QRS complex voltage in the limb leads Nonspecific ST-T wave abnormalities Comparison tracing not on file Electronically Signed on 03-01-2020 6:10:49 EST by Slade Fabian
[2020-03-01] MEDS: ASPIRIN 81 MG ENTERIC TAB PO SCH (08:48)
[2020-03-01 09:31] LABS: HEMATOCRIT 32.1 % (42.0-52.0); HEMOGLOBIN 10.7 g/dl (13.5-17.5); MEAN CORPUSCULAR HEMOGLOBIN 30.2 pg (27.0-33.0); MEAN CORPUSCULAR HGB CONC 33.3 g/dl (32.0-36.5); MEAN CORPUSCULAR VOLUME 90.7 fl (80.0-96.0); PLATELET COUNT, AUTOMATED 204 10^3/uL (150-450); RED BLOOD COUNT 3.54 10^6/uL (4.30-6.10); WHITE BLOOD COUNT 11.8 10^3/uL (4.0-10.0)
[2020-03-01 09:56] LABS: BLOOD UREA NITROGEN 9 MG/DL (7-18); CALCIUM LEVEL 7.7 MG/DL (8.5-10.1); CARBON DIOXIDE LEVEL 26 MEQ/L (21-32); CHLORIDE LEVEL 104 MEQ/L (98-107); CREATININE FOR GFR 0.76 MG/DL (0.70-1.30); GLOMERULAR FILTRATION RATE > 60.0 (>56); GLUCOSE, FASTING 129 MG/DL (70-100); POTASSIUM SERUM 3.9 MEQ/L (3.5-5.1); SODIUM LEVEL 138 MEQ/L (136-145)
[2020-03-01] MEDS: PERCOCET 5MG/325MG TAB PO PRN ×3 (11:08→21:58)
--- NOTE | 2020-03-01 12:49 | IPNPDOC ---
Text Note Date of Service The patient was seen on 03/01/20. NOTE Subjective: Patient is a 59-year-old male with end-stage atherosclerosis of [place] valves status post multiple endovascular surgeries to bilateral lower extremities, peripheral artery disease, COPD , who presented to [facility] for elective revascularization procedure with Dr. Teran on 02/29/2020. Patient has received outpatient medical clearance from his primary care provider and cardiology. Hospital services consulted for medical comanagement postoperative. Patient was seen and examined at the bedside. Currently patient denies any chest pain, shortness breath or palpitations. Patient reports that his right leg does experience some pain and discomfort. Patient denies any abdominal pain, or diarrhea. He has a Jerome catheter in place that will be discontinue today. Objective: Vitals (See below) General: Lying in bed, comfortable, AAOx3 HEENT: NC, AT CVS: +S1S2 Lungs: Fair air entry b/l, no appreciable wheezing, rhonchi or rales Abdomen: Soft, ND, NT Extremities: R groin with dressing in place (appears clean / intact), R medial thigh/knee with dressing in place, - Edema, - Calf tenderness Assessment and plan: Atherosclerotic pala vessels of the lower extremities - Currently patient reports mild pain of his right leg - c/w Regular diet - Pain control, anticoagulation, physical therapy as per vascular surgery - Currently on Heparin drip; Plavix on hold - c/w ASA Acute blood loss anemia - likely 2/2 intra-operative losses - s/p 1 unit PRBC transfusion - No further evidence of bleeding - Will follow trend Peripheral artery disease: - s/p Bilateral common femoral endarterectomy with Xenosure patch angioplasty and Right to left femoral-femoral bypass with 6 mm ringed PTFE graft 07/10/19 - s/p right common and external iliac stent 10/14/19 - Pain and DVT prophylaxis as per vascular - c/w ASA Chronic COPD - No evidence of exacerbation - c/w inhaled therapy as ordered DVT prophylaxis - As per vascular surgery Disposition: - Anticipate DC within 24-48 hours VS,Fishbone, I+O VS, Fishbone, I+O Laboratory Tests 03/01/20 09:08 Vital Signs Date Time Temp Pulse Resp B/P (MAP) Pulse Ox O2 Delivery O2 Flow Rate FiO2 03/01/20 12:39 94 Room Air 03/01/20 11:38 16 03/01/20 10:00 98.4 96 160/76 (104) 03/01/20 06:00 2.0 I&O- Last 24 Hours up to 6 AM 03/01/20 06:00 Intake Total 3380 ml Output Total 3100 ml Balance 280 ml DANNI FINLEY MD Mar 01, 2020 12:49
--- NOTE | 2020-03-01 13:19 | IPNPDOC ---
Text Note Date of Service The patient was seen on 03/01/20. NOTE Vascular surgery. Dr. Teran The patient is a 59-year-old male with severe end-stage vascular disease, S/P bilateral common femoral endarterectomy with Xenosure patch angioplasty and Right to left femoral-femoral bypass with 6 mm ringed PTFE graft 07/10/[address] Teran and right common and external iliac stent 10/14/[address] Teran, has known bilateral SFA occlusions, right lower extremity claudication and and rest pain. Status post femoropopliteal bypass and profunda bypass on the right as per Dr. Teran 02/29/20. This was extremely challenging related to extreme intimal hyperplasia, near occlusive plaque, thin friable arterial sierra and previous surgical interventions. The patient is seen and examined as per Dr. Teran POD 1. Pain seems to be reasonably controlled. There is slight coolness of the right foot below the ankle and generalized slight coolness of the left lower extremity pretibial and left foot. There does not however appear to be discoloration, no mottling, no erythema. Capillary refill less than 3-4 seconds at the toes. Dressings are removed from the patient's incisions at the right groin and right below-knee, luz are intact, there is no drainage on the dressings. The area is thoroughly cleaned, dry dres sing and paper tape applied. Jerome catheter has been removed. PT/OT requested, activity as tolerated. Continue analgesia. The patient remains on heparin drip for now. Continue aspirin [address] Teran discussed with the patient again that he is at high risk for failure of his pre-existing femoral-femoral bypass and for failure of the new femoral-popliteal bypass and profunda bypass on the right. Continue to closely monitor. VS,Fishbone, I+O VS, Fishbone, I+O Laboratory Tests 03/01/20 09:08 Vital Signs Date Time Temp Pulse Resp B/P (MAP) Pulse Ox O2 Delivery O2 Flow Rate FiO2 03/01/20 12:39 94 Room Air 03/01/20 11:38 16 03/01/20 10:00 98.4 96 160/76 (104) 03/01/20 06:00 2.0 I&O- Last 24 Hours up to 6 AM 03/01/20 06:00 Intake Total 3380 ml Output Total 3100 ml Balance 280 ml Alessandra Bernal Mar 01, 2020 13:19
[2020-03-01] MEDS: diazePAM 5MG TABLET PO PRN (15:30)
[2020-03-01] MEDS: HEPARIN SOD (PORCINE) 5000UNITS/ML 1ML VIAL/SYRINGE IV PRN (15:30)
[2020-03-01 17:44] LABS: HEMATOCRIT 31.4 % (42.0-52.0); HEMOGLOBIN 10.3 g/dl (13.5-17.5)
[2020-03-01] MEDS ORDERED: HEPARIN 25,000 UNITS/250 ML D5W BAG (100 UNITS/ML) (J1644 PER 1000UNITS) As Ordered ONE (18:15)
[2020-03-01] MEDS: HEPARIN DRIP 25,000 UNITS in IV 1 EA IV SCH (18:25)
[2020-03-02] VITALS (8 sets, daily range): BP systolic 118–153; BP diastolic 50–89; O2SAT 99
[2020-03-02] MEDS: NS 1,000 ML IV SCH (01:48)
[2020-03-02] MEDS: HYDROmorphone 2 MG TAB PO PRN (01:53)
[2020-03-02 03:54] LABS: HEMATOCRIT 28.3 % (42.0-52.0); HEMOGLOBIN 9.1 g/dl (13.5-17.5); MEAN CORPUSCULAR HGB CONC 32.2 g/dl (32.0-36.5); MEAN CORPUSCULAR VOLUME 93.4 fl (80.0-96.0); PLATELET COUNT, AUTOMATED 147 10^3/uL (150-450); RED BLOOD COUNT 3.03 10^6/uL (4.30-6.10); WHITE BLOOD COUNT 9.6 10^3/uL (4.0-10.0)
[2020-03-02] MEDS: PERCOCET 5MG/325MG TAB PO PRN ×4 (04:01→17:51)
[2020-03-02] MEDS: HEPARIN SOD (PORCINE) 5000UNITS/ML 1ML VIAL/SYRINGE IV PRN (04:39)
[2020-03-02] MEDS: HEPARIN DRIP 25,000 UNITS in IV 1 EA IV SCH ×2 (06:10→13:30)
[2020-03-02] MEDS: diazePAM 5MG TABLET PO PRN ×2 (09:54→20:35)
[2020-03-02] MEDS: ASPIRIN 81 MG ENTERIC TAB PO SCH (09:54)
--- NOTE | 2020-03-02 13:32 | IPNPDOC ---
Text Note Date of Service The patient was seen on 03/02/20. NOTE Subjective: Patient is a 59-year-old male with end-stage atherosclerosis of rampart valves status post multiple endovascular surgeries to bilateral lower extremities, peripheral artery disease, COPD , who presented to [facility] for elective revascularization procedure with Dr. Teran on 02/29/2020. Patient has received outpatient medical clearance from his primary care provider and cardiology. Hospital services consulted for medical comanagement postoperative. Patient was seen and examined at the bedside. Patient was sitting up in chair. Denies any CP, SOB, palpitations, N/V, abdominal pain, C/D. Reports right leg pain - better than yesterday. Objective: Vitals (See below) General: Sitting up in chair, appears comfortable, AAOx3 HEENT: NC, AT CVS: +S1S2 Lungs: Appears to have fair air entry b/l, no appreciable rhonchi / rales / crackles Abdomen: Soft, non-distended, non-tender Extremities: R groin and R medial leg with dressing in place, No appreciable edema, - Calf tenderness Assessment and plan: Atherosclerotic rampart vessels of the lower extremities - Currently patient reports mild pain of his right leg - c/w Regular diet - Pain control, anticoagulation, physical therapy as per vascular surgery - Currently on Heparin drip; Plavix on hold - Will likely start Eliquis tonight - c/w ASA Acute blood loss anemia - likely 2/2 intra-operative losses - s/p 1 unit PRBC transfusion - No further evidence of bleeding - Slight drop in Hg - possibly dilutional - Will provide additional unit PRBC Peripheral artery disease: - s/p Bilateral common femoral endarterectomy with Xenosure patch angioplasty and Right to left femoral-femoral bypass with 6 mm ringed PTFE graft 07/10/19 - s/p right common and external iliac stent 10/14/19 - Pain and DVT prophylaxis as per vascular - c/w ASA Chronic COPD - No evidence of exacerbation - c/w inhaled therapy as ordered DVT prophylaxis - As per vascular surgery Disposition: - Anticipate DC within 24 hours VS,Fishbone, I+O VS, Fishbone, I+O Laboratory Tests 03/01/20 17:24 03/02/20 03:49 Vital Signs Date Time Temp Pulse Resp B/P (MAP) Pulse Ox O2 Delivery O2 Flow Rate FiO2 03/02/20 10:38 13 03/02/20 09:55 99 Room Air 03/02/20 06:00 100.1 96 03/01/20 22:00 142/79 (100) 03/01/20 06:00 2.0 I&O- Last 24 Hours up to 6 AM 03/02/20 05:59 Intake Total 3160 ml Output Total 1550 ml Balance 1610 ml DANNI FINLEY MD Mar 02, 2020 13:32
--- NOTE | 2020-03-02 16:32 | IPNPDOC ---
Date Seen The patient was seen on 03/02/20. Progress Note Pt seen and examined. Doing well POD #2 s/p extensive RLE revascularization with profunda interposition bypass graft, multiple femoral, iliac, and profunda endarterectomies with patch angioplasty, femBKpop bypass, thrombectomies of existing femfem bypass. All revasc is tenuous- he has end stage vascular disease. At this point, he has warm feet bilaterally, pain is improving steadily, and he can ambulate. This is a pleasant surprise. I am pleased with his progress. His incisions are c/d/i with scant serosanguinous drainage on dressings, and luz are c/d/i. Cleaned both incisions thoroughly, and then redressed with 4x4s and paper tape. He tolerated this well. From a vascular standpoint, we will need to convert him to oral anticoagulation and then he may be ready for D/c home tomorrow from our standpoint. We will continue asa at discharge, but d/c plavix in favor of eliquis. Will d/w our hospitalist colleagues. We appreciate the opportunity to participate in the care of this patient. VS, I&O, 24H, Fishbone Vital Signs/I&O Vital Signs Date Time Temp Pulse Resp B/P (MAP) Pulse Ox O2 Delivery O2 Flow Rate FiO2 03/02/20 16:05 98.2 95 20 145/89 96 Room Air 03/01/20 06:00 2.0 I&O- Last 24 Hours up to 6 AM 03/02/20 06:00 Intake Total 2710 ml Output Total 1200 ml Balance 1510 ml Laboratory Data 24H LABS Laboratory Tests 2 03/01/20 21:20: Activated Partial Thromboplast Time 132.7*H 03/02/20 03:49: Activated Partial Thromboplast Time 56.9H, Nucleated Red Blood Cells % (auto) 0.0 03/02/20 10:49: Activated Partial Thromboplast Time 89.8H CBC/BMP Laboratory Tests 03/01/20 17:24 03/02/20 03:49 ZACH BELL MD Mar 02, 2020 16:31
[2020-03-02] MEDS ORDERED: APIXABAN 5 MG TAB (ELIQUIS) PO ONE (17:45)
[2020-03-02] MEDS ORDERED: APIXABAN 5 MG TAB (ELIQUIS) PO SCH (21:00)
[2020-03-03] MEDS: PERCOCET 5MG/325MG TAB PO PRN ×3 (00:47→14:07)
[2020-03-03 02:40] VITALS: O2SAT 94
[2020-03-03 06:00] VITALS: BP 129/61
[2020-03-03] MEDS: ASPIRIN 81 MG ENTERIC TAB PO SCH (07:46)
--- NOTE | 2020-03-03 08:44 | IPNPDOC ---
Date Seen The patient was seen on 03/03/20. Progress Note Patient seen and examined. Doing well today postop day #3 status post extensive revascularization right lower extremity including multiple femoral iliac and profunda endarterectomies with patch angioplasty, thrombectomy existing femorofemoral bypass, aborted femoropopliteal bypass below the knee with cadaver vein and completion femoropopliteal bypass below the knee with PTFE cortex, profunda interposition cadaver vein bypass. He got himself up to the chair and was sitting when I arrived, and then got himself back to bed so I could change his dressing. He was steady with the walker. On exam, the patient's legs are warm. He is monophasic signals at the foot bilaterally. I can Doppler flow in the femorofemoral and the femoropopliteal bypass. I can Doppler flow and profunda. All is monophasic. His incisions are clean dry and intact. There is minimal serosanguineous drainage at the groin incision at the groin crease, but the rest of the incision is clean dry and intact. This will be the most tenuous area to heal as the incision crosses a previous groin incision. His below knee medial calf incision is clean dry and intact with no significant drainage noted. No significant bruising bleeding or hematoma is noted in either area. Both incisions were cleaned thoroughly and redressed. The patient was again instructed on how to take care of his incisions and was able to repeat it back to me easily. I told him from my standpoint is okay for him to go home today if he is stable from the hospitalist standpoint. He is agreeable to this plan. We appreciate the hospitalist's excellent care of this patient. Discharge instructions: 1. Follow-up in vascular surgery clinic in 1 week to check incisions and perfusion. 2. Regular diet, high protein to help incisions to heal. 3. Activity as tolerated, encourage ambulation with walker for safety, encouraged home or outpatient physical therapy to improve ambulation and strength, no lifting greater than 10 pounds or strenuous exercise for 2 weeks or until incisions are completely healed. 4. Patient is instructed to take a shower daily. No tub baths. He is to remove his dressing prior to shower. Soap and water over the incisions is fine. Pat dry with clean towel. Swipe with alcohol prep pad over luz. Dry gauze and paper tape for final dressings. 5. Elevate legs for 30 minutes 3 times a day above the level of the heart to help minimize swelling in the lower extremities. We appreciate the opportunity to participate in the care of this patient. VS, I&O, 24H, Fishbone Vital Signs/I&O Vital Signs Date Time Temp Pulse Resp B/P (MAP) Pulse Ox O2 Delivery O2 Flow Rate FiO2 03/03/20 07:48 16 03/03/20 06:00 98.2 99 129/61 (83) 97 Room Air 03/01/20 06:00 2.0 I&O- Last 24 Hours up to 6 AM 03/03/20 06:00 Intake Total 2617.5 ml Output Total 3000 ml Balance -382.5 ml Laboratory Data 24H LABS Laboratory Tests 2 03/02/20 10:49: Activated Partial Thromboplast Time 89.8H 03/02/20 17:20: Activated Partial Thromboplast Time 45.1H ZACH BELL MD Mar 03, 2020 08:44
[2020-03-03] MEDS ORDERED: APIXABAN 5 MG TAB (ELIQUIS) PO SCH (09:00)
[2020-03-03 09:29] LABS: BASO % 0.3 % (0.0-1.0); EOS # 0.1 10^3/uL (0.0-0.5); EOS % 0.7 % (0.0-3.0); HEMATOCRIT 31.2 % (42.0-52.0); HEMOGLOBIN 10.5 g/dl (13.5-17.5); LYMPH # 1.3 10^3/uL (1.5-5.0); LYMPH % 13.4 % (24.0-44.0); MEAN CORPUSCULAR HEMOGLOBIN 30.3 pg (27.0-33.0); MEAN CORPUSCULAR HGB CONC 33.7 g/dl (32.0-36.5); MEAN CORPUSCULAR VOLUME 89.9 fl (80.0-96.0); MONO # 0.9 10^3/uL (0.0-0.8); MONO % 9.3 % (0.0-5.0); NEUTROPHILS # 7.6 10^3/uL (1.5-8.5); NEUTROPHILS % 75.8 % (36.0-66.0); PLATELET COUNT, AUTOMATED 181 10^3/uL (150-450); RED BLOOD COUNT 3.47 10^6/uL (4.30-6.10)
[2020-03-03 10:10] LABS: BLOOD UREA NITROGEN 7 MG/DL (7-18); CALCIUM LEVEL 8.3 MG/DL (8.5-10.1); CARBON DIOXIDE LEVEL 28 MEQ/L (21-32); CHLORIDE LEVEL 101 MEQ/L (98-107); CREATININE FOR GFR 0.62 MG/DL (0.70-1.30); GLOMERULAR FILTRATION RATE > 60.0 (>56); GLUCOSE, FASTING 119 MG/DL (70-100); MAGNESIUM LEVEL 2.2 MG/DL (1.8-2.4); POTASSIUM SERUM 3.5 MEQ/L (3.5-5.1); SODIUM LEVEL 137 MEQ/L (136-145)
[2020-03-03] MEDS ORDERED: ELIQ5TAB PO ×2 (11:12→16:49)
[2020-03-03] MEDS ORDERED: PERCOCET PO ×2 (11:12→16:49)
[2020-03-03] MEDS: diazePAM 5MG TABLET PO PRN (11:38)
[2020-03-03 11:45] VITALS: O2SAT 98
[2020-03-03 14:00] VITALS: BP 126/76
--- NOTE | 2020-03-03 15:56 | DS.PDOC ---
Discharge Summary General Date of Admission Feb 29, 2020 at 07:51 Date of Discharge 03/03/2020 Discharge Summary PROCEDURES PERFORMED DURING STAY: On 02/29/2020 the following procedures were performed by Dr. Teran 1. Right profunda endarterectomy and patch angioplasty with Xenosure patch 2. Redo femoral artery exposure with extensive scarring, 90 minutes 3. Separate right common femoral endarterectomy and patch angioplasty with Xenosure patch 4. Separate right distal external iliac artery endarterectomy and patch angioplasty with Xenosure patch 5. Right femoral to below-knee bypass with cadaver vein, aborted 6. Right femoral to profunda interposition bypass with cadaver vein 7. Arteriogram right iliofemoral arteries 8. Right external iliac to below-knee popliteal bypass with 6 mm ringed PTFE ADMITTING DIAGNOSES / DISCHARGE DIAGNOSES: Atherosclerotic [place] vessels of the lower extremities Acute blood loss anemia - likely 2/2 intra-operative losses Peripheral artery disease: Chronic COPD DVT prophylaxis COMPLICATIONS/CHIEF COMPLAINT: Atherosclerosis Of [place] Arteries And Rest Pain... HISTORY OF PRESENT ILLNESS: Patient is a 59-year-old male with end-stage atherosclerosis of [place] valves status post multiple endovascular surgeries to bilateral lower extremities, peripheral artery disease, COPD , who presented to [facility] for elective revascularization procedure with Dr. Teran on 02/29/2020. Patient has received outpatient medical clearance from his primary care provider and cardiology. Hospital services consulted for medical comanagement postoperative. HOSPITAL COURSE: Atherosclerotic [place] vessels of the lower extremities - Currently patient reports mild pain of his right leg - c/w Regular diet - Pain control, anticoagulation, physical therapy as per vascular surgery - Patient's heparin drip was discontinued yesterday evening and he was started on Eliquis - Patient has been advised to discontinue the use of Plavix - Will c/w ASA Acute blood loss anemia - likely 2/2 intra-operative losses - s/p 2 unit PRBC transfusion - No further evidence of bleeding - Hg remains stable Peripheral artery disease: - s/p Bilateral common femoral endarterectomy with Xenosure patch angioplasty and Right to left femoral-femoral bypass with 6 mm ringed PTFE graft 07/10/19 - s/p right common and external iliac stent 10/14/19 - Pain and DVT prophylaxis as per vascular - Will continue with Percocet on discharge for 4 days only - c/w ASA Chronic COPD - No evidence of exacerbation - c/w inhaled therapy as ordered DVT prophylaxis - As per vascular surgery DISCHARGE MEDICATIONS: Please see below. ALLERGIES: Please see below. PHYSICAL EXAMINATION ON DISCHARGE: Vitals (See below) General: Sitting up in bed, does not appear to be in any distress, is awake, alert and oriented 3 HEENT: NC, AT CVS: +S1S2 Lungs: Air entry is fair bilaterally without any evidence of rhonchi, crackles or wheezing Abdomen: Abdomen remains soft without any distention or tenderness Extremities: Right groin and right medial leg with dressing in place. No evidence of bleeding, - Calf tenderness LABORATORY DATA: Please see below. ACTIVITY: [As tolerated]. DISCHARGE PLAN: Follow-up with primary care provider within the next 7 days Follow-up with vascular surgery within the next 7 days Remain compliant with treatment plan and medications Return to the ER if you experience any problems DISPOSITION: Home with services DISCHARGE CONDITION: [Stable]. TIME SPENT ON DISCHARGE: 35 minutes. Vital Signs/I&Os Vital Signs Date Time Temp Pulse Resp B/P (MAP) Pulse Ox O2 Delivery O2 Flow Rate FiO2 03/03/20 14:37 16 03/03/20 14:00 98.7 103 126/76 (93) 98 Room Air 03/01/20 06:00 2.0 I&O- Last 24 Hours up to 6 AM 03/03/20 06:00 Intake Total 2617.5 ml Output Total 3000 ml Balance -382.5 ml Laboratory Data Labs 24H Laboratory Tests 2 03/02/20 17:20: Activated Partial Thromboplast Time 45.1H 03/03/20 09:00: Immature Granulocyte % (Auto) 0.5, Neutrophils (%) (Auto) 75.8H, Lymphocytes (%) (Auto) 13.4L, Monocytes (%) (Auto) 9.3H, Eosinophils (%) (Auto) 0.7, Basophils (%) (Auto) 0.3, Neutrophils # (Auto) 7.6, Lymphocytes # (Auto) 1.3L, Monocytes # (Auto) 0.9H, Eosinophils # (Auto) 0.1, Basophils # (Auto) 0.0, Nucleated Red Blood Cells % (auto) 0.0, Anion Gap 8, Glomerular Filtration Rate > 60.0, Calcium Level 8.3L, Magnesium Level 2.2 CBC/BMP Laboratory Tests 03/03/20 09:00 Discharge Medications Scheduled Apixaban (Eliquis) 5 Mg Tablet, 5 MG PO BID Aspirin (Low Dose Aspirin EC) 81 Mg Tablet.dr, 81 MG PO DAILY, (Reported) Scheduled PRN Ipratropium/Albuterol Sulfate (Iprat-Albut 0.5-3(2.5) mg/3 ml) 3 Ml Ampul.neb, 1 VIAL NEB QIDP PRN for RESPIRATORY DISTRESS Oxycodone/Acetaminophen (Oxycodone-Acetaminophen 5-325) 1 Each Tablet, 1-2 TAB PO Q6HP PRN for MODERATE/SEVERE PAIN (PS 5-10) Miscellaneous Medications Cholecalciferol (Vitamin D3) (Vitamin D3) 25 Mcg Capsule, 25 MCG PO, (Reported) Allergies Coded Allergies: No Known Allergies (Unverified , 07/10/19) DANNI FINLEY MD Mar 03, 2020 15:56
== END 2020-03-03 17:30 | disposition home or self-care (01) | DRG 271 ==
LOC: M OR 07:51 → M MSPAV 21:34
PROVIDERS: ADMIT Surgery Vascular Surgery; ATTEND Internal Medicine
PROC: 04CK0ZZ Extirpation of Matter from Right Femoral Artery, Open Approach (ICD-10-PCS; 2020-02-29)
PROC: 041 Lower Arteries, Bypass (ICD-10-PCS; 2020-02-29)
PROC: 30233N1 Transfusion of Nonautologous Red Blood Cells into Peripheral Vein, Percutaneous Approach (ICD-10-PCS; 2020-02-29)
PROC: 04CH0ZZ Extirpation of Matter from Right External Iliac Artery, Open Approach (ICD-10-PCS; principal; 2020-02-29 10:00)
DX: I70.221 Atherosclerosis of native arteries of extremities with rest pain, right leg (principal); D62 Acute posthemorrhagic anemia; J44.9 Chronic obstructive pulmonary disease, unspecified; Z79.82 Long term (current) use of aspirin; Z79.899 Other long term (current) drug therapy; Z87.891 Personal history of nicotine dependence

== ENCOUNTER → 2020-04-15 | Outpatient (CLI) | payer OTHER ==
[~2020-04-15] MED LIST changes: +ELIQ5TAB PO; -LR 1,000 ML IV ONE; +PERCOCET PO; -ceFAZolin SOD 2 GM in IV 1 EA IV ONE
--- NOTE | 2020-04-18 02:33 | REP ---
INDICATION: ATHEROSCLEROSIS COMPARISON: None. TECHNIQUE: Real time vasquez scale and color Doppler evaluation of the distal aorta and iliac arteries as well as bilateral lower extremity arterial vasculature using linear high frequency transducer. FINDINGS: DISTAL AORTA/ILIAC ARTERIES The distal aorta demonstrates atherosclerotic changes with biphasic arterial wave pattern at 35 cm/sec. Right common iliac artery stent is patent (76 cm/sec). Right external iliac artery demonstrates proximal and distal areas of occlusion and the right external iliac artery stent is identified and has a somewhat flattened narrowed appearance along the distal aspect causing subsequent increased velocity and 10:1 stenosis. Left common iliac artery-external iliac artery appears occluded. BILATERAL LOWER EXTREMITIES Vasquez scale and color images demonstrate severe atheromatous plaquing. A femoral-femoral bypass graft is occluded. Right lower extremity: The right external iliac artery-popliteal artery bypass graft is occluded. Occlusions are also identified within the right common femoral artery-superficial femoral artery followed by monophasic parvus tardus wave patterns demonstrating very minimal trickle flow. Left lower extremity: Reversed flow and revascularization is identified at the origin of the common femoral artery followed by occlusion through the proximal to mid/distal superficial femoral artery with subsequent revascularization. A large collateral vessel is identified supplying the profundus artery which is also identified causing some element of reversed flow in the common femoral artery extending through a large common femoral artery collateral vessel. Peak systolic velocities (cm/sec) Common femoral artery: Right occluded; Left 21 with reverse revascularization Profunda femoris: Right occluded; Left 38 with revascularization via collateral SFA (proximal): Right occluded; Left occluded SFA (mid): Right occluded; Left occluded SFA (distal): Right 48 and revascularized; Left 14 and revascularized Popliteal artery: Right 54/21; Left 48/75 SALLY (prox.): Right 8; Left 34 Tibioperoneal trunk: Right 26; Left 43 TRACTOR MECHANIC (prox.): Right 12; Left 40 TRACTOR MECHANIC (distal): Right 8; Left 25 SALLY (distal): Right 9; Left 15 IMPRESSION: Significant disease with areas of narrowing and occlusion involving iliac arteries and lower extremities as described above. <Electronically signed by Geovani Salamanca > 04/18/20 [id number]
== END ==
LOC: M RAD 10:39
PROVIDERS: ATTEND Physician Assistant
DX: I70.221 Atherosclerosis of native arteries of extremities with rest pain, right leg (principal); I70.212 Atherosclerosis of native arteries of extremities with intermittent claudication, left leg; Z95.828 Presence of other vascular implants and grafts

== ENCOUNTER → 2020-05-08 | Outpatient (CLI) | payer OTHER ==
[~2020-05-08] MED LIST changes: +ATOR1TAB21 PO
== END ==
LOC: M LABSMTC 10:04
PROVIDERS: ATTEND Anesthesiology
DX: Z01.818 Encounter for other preprocedural examination (principal); Z20.822 Contact with and (suspected) exposure to COVID-19

== ENCOUNTER 2020-05-13 05:58 | Inpatient (IN) | payer OTHER ==
[2020-05-13] VITALS (9 sets, daily range): BP systolic 162–187; BP diastolic 80–99
[~2020-05-13] VITALS: Ht 180.3 cm; Wt 63.2 kg
[2020-05-13] MEDS ORDERED: ceFAZolin SOD 2 GM in IV 1 EA IV ONE (06:00)
[2020-05-13] MEDS ORDERED: LR 1,000 ML IV ONE (06:00)
[2020-05-13 06:46] LABS: HEMOGLOBIN 14.3 g/dl (13.5-17.5); MEAN CORPUSCULAR HEMOGLOBIN 28.9 pg (27.0-33.0); MEAN CORPUSCULAR HGB CONC 32.5 g/dl (32.0-36.5); MEAN CORPUSCULAR VOLUME 89.1 fl (80.0-96.0); PLATELET COUNT, AUTOMATED 327 10^3/uL (150-450); RED BLOOD COUNT 4.94 10^6/uL (4.30-6.10); WHITE BLOOD COUNT 7.6 10^3/uL (4.0-10.0)
[2020-05-13 06:56] LABS: INR 1.03; PARTIAL THROMBOPLASTIN TIME 30.8 SECONDS (24.2-38.5); PROTHROMBIN TIME 13.7 SECONDS (12.5-14.3)
[2020-05-13] MEDS ORDERED: propofoL 200 MG/20 ML VIAL As Ordered ONE ×2 (07:07→09:05)
[2020-05-13] MEDS ORDERED: ONDANSETRON 4MG/2ML VIAL As Ordered ONE (07:07)
[2020-05-13] MEDS ORDERED: ROCURONIUM BROMIDE 50 MG/5 ML VIAL As Ordered ONE (07:07)
[2020-05-13] MEDS ORDERED: HYDROmorphone HCL 2 MG/ML 1ML VIAL (J1170) As Ordered ONE (07:07)
[2020-05-13] MEDS ORDERED: dexameTHASONE 4 MG/ML 1ML VIAL (J1100 PER 1MG) As Ordered ONE (07:07)
[2020-05-13] MEDS ORDERED: MIDAZOLAM INJ 2MG/2ML VIAL (J2250 PER 1MG) As Ordered ONE (07:07)
[2020-05-13] MEDS ORDERED: LIDOCAINE 2% 100MG/5ML SDV (FOR ANES.) As Ordered ONE (07:07)
[2020-05-13] MEDS ORDERED: fentaNYL 100 MCG/2 ML INJECTION (J3010) As Ordered ONE ×2 (07:07→09:48)
[2020-05-13] MEDS ORDERED: BUPIVACAINE/EPIN 0.5% 30 ML VIAL As Ordered ONE (07:10)
[2020-05-13 07:16] LABS: BLOOD UREA NITROGEN 7 MG/DL (7-18); CALCIUM LEVEL 9.4 MG/DL (8.5-10.1); CARBON DIOXIDE LEVEL 32 MEQ/L (21-32); CHLORIDE LEVEL 105 MEQ/L (98-107); CREATININE FOR GFR 0.91 MG/DL (0.70-1.30); GLOMERULAR FILTRATION RATE > 60.0 (>56); GLUCOSE, FASTING 100 MG/DL (70-100); SODIUM LEVEL 141 MEQ/L (136-145)
[2020-05-13] MEDS ORDERED: KETAMINE HCL 200 MG/20 ML VIAL As Ordered ONE (07:48)
[2020-05-13] MEDS ORDERED: ACETAMINOPHEN 1000MG 100ML IV BTL (OFIRMEV) (J0131 PER 10MG) As Ordered ONE (07:52)
[2020-05-13] MEDS ORDERED: SUGAMMADEX SODIUM 500 MG/5 ML VIAL (BRIDION) As Ordered ONE (07:57)
[2020-05-13] MEDS ORDERED: PHENYLephrine 500MCG 5ML (100MCG/ML) SYRINGE As Ordered ONE (08:09)
[2020-05-13] MEDS ORDERED: amLODIPine 5 MG TAB PO SCH (09:00)
[2020-05-13] MEDS ORDERED: ONDANSETRON 4MG/2ML VIAL IV PRN ×2 (09:30→09:50)
--- NOTE | 2020-05-13 09:30 | ROOPDOC ---
[facility] Report Of Operation Report of Operation DATE OF PROCEDURE: 05/13/20 PREPROCEDURE DIAGNOSES: Atherosclerosis of the [place] arteries with rest pain and nonhealing wounds right foot and calf POSTPROCEDURE DIAGNOSES: Same PROCEDURE: Right above-knee amputation SURGEON: Zach Teran MD ANESTHESIA: Gen. anesthesia and local INDICATION FOR PROCEDURE: This is a very pleasant 59-year-old gentleman with severe right lower extremity peripheral vascular disease status post many failed endovascular and open revascularization attempts. He now has progressive tissue ischemia in the right foot, wounds of the right foot and calf, and severe rest pain day and night. The patient has no further revascularization options. Risks benefits and alternatives to a right above-knee amputation were explained to the patient needs agreeable to proceed. Informed consent was obtained. REPORT OF OPERATION: Patient was brought to the operating room in stable condition and general anesthesia and antibiotics were administered without complication. His right lower extremity was prepped and draped in a sterile fashion. A timeout was performed. The leg was exsanguinated with an Esmarch and a tourniquet was inflated. A fishmouth incision was fashioned at the knee and carried down to the subcutaneous tissue with Bovie cautery. We continued the dissection down through the muscle and fascia to the femur. The femur was skeletonized circumferentially. The periosteum was elevated with a lap pad proximally. The popliteal artery and vein were identified suture ligated and divided. The femur was transected. The rest of the soft tissue on the posterior flap was dissected away. The leg was sent for pathology. Visible vessels were suture ligated and divided. The tourniquet was released. Fairly good hemostasis was noted. Bovie cautery was used for additional hemostasis were needed. Nerve structures were high ligated and divided and tissue was closed over the nerve track. Perineural tissues were injected with local anesthesia. A rasp was used to smooth the bone edges. We beveled the anterior edge slightly. We irrigated with copious amounts of saline. The periosteum and deep muscle fascia were approximated to cover the femur. We then approximated anterior and posterior deep fascia to close the space. The superficial fascia was closed with [id number] Vicryl sutures along the skin edge. There was taken to make sure there was in the closure. We then irrigated the skin edge and the skin was approximated with nylon mattress sutures and skin luz were used as the final skin closure. The incision was clean and dry. Xeroform, fluffs, kerlix, and a 4 inch Ariel wrap were used as a final dressing. The patient was then allowed to awaken from anesthesia and taken to recovery in stable condition. SPECIMEN: Right leg sent for pathology ESTIMATED BLOOD LOSS: Approximately 25 mL. COMPLICATIONS: None PLAN: Admit to [facility], hospitalist service. Okay to resume diet and medications. Encourage high-protein intake to help with healing. PT OT and ARU consult. Analgesia when necessary. We appreciate the opportunity to participate in the care of this patient. ZACH TERAN MD May 13, 2020 09:30
[2020-05-13] MEDS ORDERED: LABETALOL 100MG/20ML VIAL As Ordered ONE (09:48)
[2020-05-13] MEDS ORDERED: PERCOCET 5MG/325MG TAB PO PRN (09:50)
[2020-05-13] MEDS ORDERED: METOCLOPRAMIDE INJ 10MG/2ML VIAL (J2765 PER 1) IV PRN (09:50)
[2020-05-13] MEDS ORDERED: LR 1,000 ML IV SCH (09:50)
[2020-05-13] MEDS ORDERED: PILL CUTTER 1 EACH XX PRN (09:50)
[2020-05-13] MEDS ORDERED: MORPHINE 2 MG/ML 1ML VIAL (J2270) IV PRN (09:50)
[2020-05-13] MEDS: LABETALOL 100MG/20ML VIAL IV SCH ×5 (09:50→10:40)
[2020-05-13] MEDS: fentaNYL 100 MCG/2 ML INJECTION (J3010) IV PRN ×2 (10:04→10:34)
[2020-05-13] MEDS ORDERED: ALBUTEROL 90 MCG/ACT 8GM HFA INHALER INH PRN (10:15)
[2020-05-13] MEDS: PERCOCET 5MG/325MG TAB PO PRN ×3 (10:32→19:27)
--- NOTE | 2020-05-13 10:38 | HPEPDOC ---
General Date of Admission May 13, 2020 at 05:58 Date of Service: May 13, 2020 Chief Complaint The patient is a 59-year-old male admitted with a reason for visit of Right Leg Ischemia With Severe Rest Pain. Source: Patient History of Present Illness Mr. Hobson is a 59 year old male with severe peripheral vascular disease who is here for right above the knee amputation. I saw him when he was still the PACU. He has had multiple revascularization attempts of the right leg, but continues to have severe right leg pain at rest. He tells me his pain started long ago, and it is a sharp pain that comes and goes. He feels that it is worse with elevation of leg. Otherwise, he reports seeing a rash between the toes of his right leg and bruising. He is color blind and can't tell me what was the color of the rash. Otherwise denies any fever, chills, chest pain, dyspnea, or abdom inal pain. Since he was out of revascularization options, he was taken to the OR by vascular surgery for right above the knee amputation. Home Medications Scheduled Apixaban (Eliquis) 5 Mg Tablet, 5 MG PO BID . Aspirin (Low Dose Aspirin EC) 81 Mg Tablet.dr, 81 MG PO DAILY, (Reported) Atorvastatin Calcium (Atorvastatin Calcium) 20 Mg Tablet, 20 MG PO QAM, (Reported) Cholecalciferol (Vitamin D3) (Vitamin D3) 25 Mcg Capsule, 25 MCG PO DAILY, (R eported) Allergies Coded Allergies: No Known Allergies (Unverified , 07/10/19) Past Medical History Medical History 1. COPD 2. PAD Surgical History 1. Bilateral femoral endarterectomy and right to left femoral-femoral bypass 2. Angiogram 3. Left knee surgery 4. 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 Father had passed out while driving and had a fatal MVA Mother: Stroke, unknown cancer Social History * Smoker: former Smoker Alcohol: sober Drugs: denies A-FIB/CHADSVASC A-FIB History Current/History of A-Fib/PAF?: No Review of Systems Constitutional: Denies: Chills, Fever Eyes: Denies: Vision change ENT: Denies: Sore Throat Skin: Reports: Rash (Right leg before amputation) Pulmonary: Denies: Dyspnea, Cough Cardiovascular: Denies: Chest Pain Gastrointestinal: Denies: Abdominal Pain Genitourinary: Denies: Dysuria Hematologic: Reports: Bruising (Right leg before amputation) Neurological: Reports: Numbness (In feet prior to surgery) Psych: Denies: Anxiety, Depression Physical Examination General Exam: Positive: Cooperative, Other (Lethargic from anesthesia) Eye Exam: Positive: EOMI; Negative: Sclera icteric ENT Exam: Positive: Atraumatic Neck Exam: Positive: Supple Chest Exam: Positive: Clear to auscultation; Negative: Rales, Rhonchi, Wheezing Heart Exam: Positive: Rate Normal, Regular Rhythm Abdomen Exam: Positive: Normal bowel sounds, Soft; Negative: Tenderness Extremity Exam: Positive: Other (Right AKA) Neuro Exam: Positive: Normal Speech, Cranial Nerves 3-12 NL Psych Exam: Positive: Mental status NL, Mood NL Vital Signs Vital Signs Date Time Temp Pulse Resp B/P (MAP) Pulse Ox O2 Delivery O2 Flow Rate FiO2 05/13/20 09:55 79 188/88 (121) 97 05/13/20 09:50 14 Nasal Cannula 3 05/13/20 09:27 97.5 Laboratory Data Labs 24H Laboratory Tests 2 05/13/20 06:24: Nucleated Red Blood Cells % (auto) 0.0, Prothrombin Time 13.7, Prothromb Time International Ratio 1.03, Activated Partial Thromboplast Time 30.8, Anion Gap 4L, Glomerular Filtration Rate > 60.0, Calcium Level 9.4 CBC/BMP Laboratory Tests 05/13/20 06:24 Assessment/Plan Mr. Hobson is a 59 year old male with severe peripheral vascular disease who is here for right above the knee amputation. Vascular surgery following and have ordered for analgesia, PT/OT/ARU screen. Otherwise, will optimize and prepare patient for rehab. Plan / VTE VTE Prophylaxis Ordered?: Yes Plan Plan 1. Severe right lower extremity PVA with resting pain s/p right AKA -Vascular surgery took patient to OR on 05/13/2020 -Pain control -PT/OT/ARU screen -Start Eliquis and Aspirin tomorrow 2. Hypertension -Systolic blood pressure elevated in the 200s -May be secondary to pain, but blood pressure has been elevated in previous admission -Monitor BP. May consider adding on amlodipine if BP not controlled on floor. 3. Dyslipidemia -Continue atorvastatin 4. COPD -No in exacerbation -Albuterol as needed 5. DVT ppx -Start aspirin and Eliquis tomorrow JANNA VALADEZ DO May 13, 2020 10:38
[2020-05-13] MEDS ORDERED: LABETALOL 100MG/20ML VIAL IV PRN (10:50)
[2020-05-13] MEDS: ATORVASTATIN 20 MG TAB PO SCH (11:30)
[2020-05-13] MEDS: amLODIPine 5 MG TAB PO SCH (12:52)
[2020-05-13] MEDS: diazePAM 5MG TABLET PO PRN ×2 (12:52→21:17)
[2020-05-13] MEDS ORDERED: **hydrALAZINE HCL** 25 MG TAB PO SCH (14:20)
[2020-05-13] MEDS: **hydrALAZINE HCL** 25 MG TAB PO PRN ×2 (15:30→23:06)
[2020-05-13] MEDS: HYDROmorphone 2 MG TAB PO PRN ×2 (17:48→23:05)
[2020-05-14] VITALS (7 sets, daily range): BP systolic 139–168; BP diastolic 68–91
[2020-05-14] MEDS: PERCOCET 5MG/325MG TAB PO PRN ×3 (03:05→21:56)
[2020-05-14 07:48] LABS: HEMOGLOBIN 13.5 g/dl (13.5-17.5); MEAN CORPUSCULAR HEMOGLOBIN 28.2 pg (27.0-33.0); MEAN CORPUSCULAR HGB CONC 32.1 g/dl (32.0-36.5); MEAN CORPUSCULAR VOLUME 87.7 fl (80.0-96.0); PLATELET COUNT, AUTOMATED 279 10^3/uL (150-450); RED BLOOD COUNT 4.79 10^6/uL (4.30-6.10); WHITE BLOOD COUNT 10.1 10^3/uL (4.0-10.0)
[2020-05-14 08:04] LABS: BLOOD UREA NITROGEN 8 MG/DL (7-18); CALCIUM LEVEL 8.7 MG/DL (8.5-10.1); CARBON DIOXIDE LEVEL 29 MEQ/L (21-32); CHLORIDE LEVEL 101 MEQ/L (98-107); CREATININE FOR GFR 0.76 MG/DL (0.70-1.30); GLOMERULAR FILTRATION RATE > 60.0 (>56); GLUCOSE, FASTING 99 MG/DL (70-100); POTASSIUM SERUM 3.9 MEQ/L (3.5-5.1); SODIUM LEVEL 135 MEQ/L (136-145)
[2020-05-14] MEDS: ATORVASTATIN 20 MG TAB PO SCH (08:09)
[2020-05-14] MEDS: HYDROmorphone 2 MG TAB PO PRN ×2 (08:09→16:29)
[2020-05-14] MEDS: amLODIPine 5 MG TAB PO SCH (08:10)
[2020-05-14] MEDS: diazePAM 5MG TABLET PO PRN ×3 (09:17→23:38)
[2020-05-14] MEDS: APIXABAN 5 MG TAB (ELIQUIS) PO SCH ×2 (10:48→21:56)
[2020-05-14] MEDS: ASPIRIN 81MG ENTERIC TABLET PO SCH (10:48)
--- NOTE | 2020-05-14 13:59 | IPNPDOC ---
Subjective Date Seen The patient was seen on 05/14/20. Subjective Chief Complaint/HPI Mr. Hobson is a 59 year old male with severe peripheral vascular disease who is here for right above the knee amputation. He had his right AKA on 05/13/2020. He was seen this morning. Has soreness in his right stump, but denies chest pain or dyspnea. Objective Physical Examination General Exam: Positive: Cooperative, Other (Lethargic from anesthesia) Eye Exam: Positive: EOMI; Negative: Sclera icteric ENT Exam: Positive: Atraumatic Neck Exam: Positive: Supple Chest Exam: Positive: Clear to auscultation; Negative: Rales, Rhonchi, Wheezing Heart Exam: Positive: Rate Normal, Regular Rhythm Abdomen Exam: Positive: Normal bowel sounds, Soft; Negative: Tenderness Extremity Exam: Positive: Other (Right AKA) Neuro Exam: Positive: Normal Speech, Cranial Nerves 3-12 NL Psych Exam: Positive: Mental status NL, Mood NL Assessment /Plan Assessment Mr. Hobson is a 59 year old male with severe peripheral vascular disease who is here for right above the knee amputation. Vascular surgery following and have ordered for analgesia, PT/OT/ARU screen. Otherwise, will optimize and prepare patient for rehab. Plan/VTE VTE Prophylaxis Ordered?: Yes Plan 1. Severe right lower extremity PVA with resting pain s/p right AKA -Vascular surgery took patient to OR on 05/13/2020 -Pain control -PT/OT/ARU screen -On Eliquis and Aspirin 2. Hypertension -Systolic blood pressure elevated in the 200s -May be secondary to pain, but blood pressure has been elevated in previous admission -Continue amlodipine -PRN hydralazine for SBP >160 3. Dyslipidemia -Continue atorvastatin 4. COPD -No in exacerbation -Albuterol as needed 5. DVT ppx -On aspirin and Eliquis Disposition: Pending PT/OT/ARU VS, I&O, 24H, [facility] Vital Signs/I&O Vital Signs Date Time Temp Pulse Resp B/P (MAP) Pulse Ox O2 Delivery O2 Flow Rate FiO2 05/14/20 12:40 18 05/14/20 10:49 81 139/91 (107) Room Air 05/14/20 09:20 97.6 94 I&O- Last 24 Hours up to 6 AM 05/14/20 06:00 Intake Total 3170 ml Output Total 3750 ml Balance -580 ml Laboratory Data 24H LABS Laboratory Tests 2 05/14/20 05:36: Nucleated Red Blood Cells % (auto) 0.0, Anion Gap 5L, Glomerular Filtration Rate > 60.0, Calcium Level 8.7 CBC/BMP Laboratory Tests 05/14/20 05:36 JANNA VALADEZ 13, 2021 13:59
[2020-05-15 02:00] VITALS: BP 155/84
[2020-05-15] MEDS: HYDROmorphone 2 MG TAB PO PRN ×2 (03:08→13:17)
[2020-05-15 06:00] VITALS: BP 157/85
[2020-05-15 06:44] LABS: HEMATOCRIT 42.2 % (42.0-52.0); HEMOGLOBIN 14.3 g/dl (13.5-17.5); MEAN CORPUSCULAR HEMOGLOBIN 29.5 pg (27.0-33.0); MEAN CORPUSCULAR HGB CONC 33.9 g/dl (32.0-36.5); MEAN CORPUSCULAR VOLUME 87.2 fl (80.0-96.0); PLATELET COUNT, AUTOMATED 262 10^3/uL (150-450); RED BLOOD COUNT 4.84 10^6/uL (4.30-6.10)
[2020-05-15 07:15] LABS: BLOOD UREA NITROGEN 10 MG/DL (7-18); CALCIUM LEVEL 8.9 MG/DL (8.5-10.1); CARBON DIOXIDE LEVEL 27 MEQ/L (21-32); CHLORIDE LEVEL 96 MEQ/L (98-107); CREATININE FOR GFR 0.65 MG/DL (0.70-1.30); GLOMERULAR FILTRATION RATE > 60.0 (>56); GLUCOSE, FASTING 108 MG/DL (70-100); POTASSIUM SERUM 3.9 MEQ/L (3.5-5.1); SODIUM LEVEL 130 MEQ/L (136-145)
[2020-05-15] MEDS: ATORVASTATIN 20 MG TAB PO SCH (08:12)
[2020-05-15] MEDS: APIXABAN 5 MG TAB (ELIQUIS) PO SCH ×2 (08:12→19:43)
[2020-05-15] MEDS: ASPIRIN 81MG ENTERIC TABLET PO SCH (08:12)
[2020-05-15] MEDS: diazePAM 5MG TABLET PO PRN ×2 (08:12→19:43)
[2020-05-15] MEDS: amLODIPine 5 MG TAB PO SCH (08:13)
[2020-05-15] MEDS: PERCOCET 5MG/325MG TAB PO PRN ×2 (08:13→19:44)
[2020-05-15 10:00] VITALS: BP 156/83
--- NOTE | 2020-05-15 10:48 | IPNPDOC ---
Date Seen The patient was seen on 05/15/20. Progress Note Patient seen and examined. He is doing well postop day 2 status post right above-knee amputation. He is tolerating a diet, and has been working with physical therapy. He says his pain is better than it was preop. He still has some complaints of some minor phantom pains and incisional pains, but this is appropriate postop. On exam, the stump is clean dry and intact. Minimal serosanguineous drainage noted on the dressing. The incision was thoroughly cleaned. [place] and sutures are intact. It was redressed with Xeroform, fluffs, kerlix, and a 4 inch Ariel wrap. The patient was able to elevate his stump for me for the dressing change and tolerated this with minimal discomfort. We elevated the stump on a pillow. The plan is to continue with physical therapy will work towards a rehabilitation disposition. He and I had a long chat today about rehabilitation, prosthetics, and other goals. All questions answered. We appreciate the hospitalist's excellent care of this patient. VS, I&O, 24H, [facility] Vital Signs/I&O Vital Signs Date Time Temp Pulse Resp B/P (MAP) Pulse Ox O2 Delivery O2 Flow Rate FiO2 05/15/20 10:00 97.9 95 17 156/83 (107) 94 Room Air 05/14/20 09:20 I&O- Last 24 Hours up to 6 AM 05/15/20 06:00 Intake Total 2920 ml Output Total 3225 ml Balance -305 ml Laboratory Data 24H LABS Laboratory Tests 2 05/15/20 05:40: Nucleated Red Blood Cells % (auto) 0.0, Anion Gap 7L, Glomerular Filtration Rate > 60.0, Calcium Level 8.9 CBC/BMP Laboratory Tests 05/15/20 05:40 ZACH BELL MD May 15, 2020 10:48
--- NOTE | 2020-05-15 12:42 | IPNPDOC ---
Subjective Date Seen The patient was seen on 05/15/20. Subjective Chief Complaint/HPI Mr. Hobson is a 59 year old male with severe peripheral vascular disease who is here for right above the knee amputation. He had his right AKA on 05/13/2020. He was seen in bed this morning. Denies chest pain or dyspnea. The soreness in his right stump is tolerable. Objective Physical Examination General Exam: Positive: Cooperative, Other (Lethargic from anesthesia) Eye Exam: Positive: EOMI; Negative: Sclera icteric ENT Exam: Positive: Atraumatic Neck Exam: Positive: Supple Chest Exam: Positive: Clear to auscultation; Negative: Rales, Rhonchi, Wheezing Heart Exam: Positive: Rate Normal, Regular Rhythm Abdomen Exam: Positive: Normal bowel sounds, Soft; Negative: Tenderness Extremity Exam: Positive: Other (Right AKA) Neuro Exam: Positive: Normal Speech, Cranial Nerves 3-12 NL Psych Exam: Positive: Mental status NL, Mood NL Assessment /Plan Assessment Mr. Hobson is a 59 year old male with severe peripheral vascular disease who is here for right above the knee amputation. Vascular surgery following and have ordered for analgesia, PT/OT/ARU screen. Otherwise, will optimize and prepare patient for rehab. Plan/VTE VTE Prophylaxis Ordered?: Yes Plan 1. Severe right lower extremity PVA with resting pain s/p right AKA -Vascular surgery took patient to OR on 05/13/2020 -Pain control -PT/OT/ARU screen -On Eliquis and Aspirin 2. Hypertension -Continue amlodipine -Added lisinopril -PRN hydralazine for SBP >160 3. Dyslipidemia -Continue atorvastatin 4. COPD -No in exacerbation -Albuterol as needed 5. DVT ppx -On aspirin and Eliquis Disposition: Pending PT/OT/ARU VS, I&O, [facility], [facility] Vital Signs/I&O Vital Signs Date Time Temp Pulse Resp B/P (MAP) Pulse Ox O2 Delivery O2 Flow Rate FiO2 05/15/20 10:00 97.9 95 17 156/83 (107) 94 Room Air 05/14/20 09:20 I&O- Last 24 Hours up to 6 AM 05/15/20 06:00 Intake Total 2920 ml Output Total 3225 ml Balance -305 ml Laboratory Data 24H LABS Laboratory Tests 2 05/15/20 05:40: Nucleated Red Blood Cells % (auto) 0.0, Anion Gap 7L, Glomerular Filtration Rate > 60.0, Calcium Level 8.9 05/15/20 12:05: CBC/BMP Laboratory Tests 05/15/20 05:40 JANNA VALADEZ 14, 2021 12:42
[2020-05-15 12:46] LABS: BLOOD UREA NITROGEN 10 MG/DL (7-18); CALCIUM LEVEL 9.2 MG/DL (8.5-10.1); CARBON DIOXIDE LEVEL 27 MEQ/L (21-32); CHLORIDE LEVEL 97 MEQ/L (98-107); CREATININE FOR GFR 0.65 MG/DL (0.70-1.30); GLOMERULAR FILTRATION RATE > 60.0 (>56); GLUCOSE, FASTING 105 MG/DL (70-100); POTASSIUM SERUM 3.9 MEQ/L (3.5-5.1); SODIUM LEVEL 131 MEQ/L (136-145)
[2020-05-15] MEDS: lisinopriL 5 MG TAB PO SCH (13:16)
[2020-05-15 14:00] VITALS: BP 158/84
[2020-05-15 22:00] VITALS: BP 145/84
[2020-05-16 02:00] VITALS: BP 130/78
[2020-05-16] MEDS: PERCOCET 5MG/325MG TAB PO PRN ×5 (02:05→22:52)
[2020-05-16 06:00] VITALS: BP 130/78
[2020-05-16 06:29] LABS: HEMATOCRIT 44.1 % (42.0-52.0); HEMOGLOBIN 14.5 g/dl (13.5-17.5); MEAN CORPUSCULAR HEMOGLOBIN 28.4 pg (27.0-33.0); MEAN CORPUSCULAR HGB CONC 32.9 g/dl (32.0-36.5); MEAN CORPUSCULAR VOLUME 86.5 fl (80.0-96.0); PLATELET COUNT, AUTOMATED 264 10^3/uL (150-450); WHITE BLOOD COUNT 10.7 10^3/uL (4.0-10.0)
[2020-05-16 06:56] LABS: BLOOD UREA NITROGEN 9 MG/DL (7-18); CARBON DIOXIDE LEVEL 28 MEQ/L (21-32); CHLORIDE LEVEL 95 MEQ/L (98-107); CREATININE FOR GFR 0.59 MG/DL (0.70-1.30); GLOMERULAR FILTRATION RATE > 60.0 (>56); GLUCOSE, FASTING 101 MG/DL (70-100); POTASSIUM SERUM 3.6 MEQ/L (3.5-5.1); SODIUM LEVEL 130 MEQ/L (136-145)
[2020-05-16] MEDS: APIXABAN 5 MG TAB (ELIQUIS) PO SCH ×2 (08:07→20:08)
[2020-05-16] MEDS: amLODIPine 5 MG TAB PO SCH (08:08)
[2020-05-16] MEDS: ASPIRIN 81MG ENTERIC TABLET PO SCH (08:08)
[2020-05-16] MEDS: ATORVASTATIN 20 MG TAB PO SCH (08:08)
[2020-05-16] MEDS: lisinopriL 5 MG TAB PO SCH (08:10)
[2020-05-16] MEDS: diazePAM 5MG TABLET PO PRN ×2 (08:12→17:57)
--- NOTE | 2020-05-16 10:00 | IPNPDOC ---
Date Seen The patient was seen on 05/16/20. Progress Note Patient seen and examined postoperative day 3 status post right above-knee amputation. He says he has very minimal pain overall. His pain medication is working well. He has a good appetite, urinating without difficulty, and is doing more and more with physical therapy each day. He says he will likely be going to rehabilitation today or tomorrow. We think this is great. I'm glad he is progressing so well. On exam, the stump is clean dry and intact. There is minimal bruising at the skin edges. No significant drainage noted. The incision was thoroughly cleaned and redressed with Xeroform, fluffs, kerlix, Ariel wrap. The patient tolerated this without difficulty was able to elevate his stump for me for the dressing change without challenge. We elevated the stump on a pillow. We are pleased with his progress and we appreciate the excellent care provided by the hospitalist team. We'll continue to follow. VS, I&O, 24H, [facility] Vital Signs/I&O Vital Signs Date Time Temp Pulse Resp B/P (MAP) Pulse Ox O2 Delivery O2 Flow Rate FiO2 05/16/20 08:11 18 Room Air 05/16/20 08:08 93 153/85 05/16/20 06:00 97.6 97 05/14/20 09:20 I&O- Last 24 Hours up to 6 AM 05/16/20 06:00 Intake Total 2995 ml Output Total 2300 ml Balance 695 ml Laboratory Data 24H LABS Laboratory Tests 2 05/15/20 12:05: Anion Gap 7L, Glomerular Filtration Rate > 60.0, Calcium Level 9.2 05/16/20 06:00: Anion Gap 7L, Glomerular Filtration Rate > 60.0, Calcium Level 9.0, Nucleated Red Blood Cells % (auto) 0.0 CBC/BMP Laboratory Tests 05/15/20 12:05 05/16/20 06:00 ZACH BELL MD May 16, 2020 10:00
[2020-05-16 14:00] VITALS: BP 138/83
--- NOTE | 2020-05-16 16:24 | IPNPDOC ---
Subjective Date Seen The patient was seen on 05/16/20. Subjective Chief Complaint/HPI Mr. Hobson is a 59 year old male with severe peripheral vascular disease who is here for right above the knee amputation. He had his right AKA on 05/13/2020. He was resting in bed. Denies dyspnea or chest pain. Right stump soreness present, but tolerable Objective Physical Examination General Exam: Positive: Cooperative, Other (Lethargic from anesthesia) Eye Exam: Positive: EOMI; Negative: Sclera icteric ENT Exam: Positive: Atraumatic Neck Exam: Positive: Supple Chest Exam: Positive: Clear to auscultation; Negative: Rales, Rhonchi, Wheezing Heart Exam: Positive: Rate Normal, Regular Rhythm Abdomen Exam: Positive: Normal bowel sounds, Soft; Negative: Tenderness Extremity Exam: Positive: Other (Right AKA) Neuro Exam: Positive: Normal Speech, Cranial Nerves 3-12 NL Psych Exam: Positive: Mental status NL, Mood NL Assessment /Plan Assessment Mr. Hobson is a 59 year old male with severe peripheral vascular disease who is here for right above the knee amputation. Vascular surgery following and have ordered for analgesia, PT/OT/ARU. Planning for patient to go to ARU tomorrow. Plan/VTE VTE Prophylaxis Ordered?: Yes Plan 1. Severe right lower extremity PVA with resting pain s/p right AKA -Vascular surgery took patient to OR on 05/13/2020 -Pain control -PT/OT/ARU screen -On Eliquis and Aspirin 2. Hypertension -Continue amlodipine and lisinopril -Blood pressure better controlled with the addition of lisinopril yesterday -PRN hydralazine for SBP >160. Has not needed hydralazine since 05/13/2020 3. Dyslipidemia -Continue atorvastatin 4. COPD -No in exacerbation -Albuterol as needed 5. DVT ppx -On aspirin and Eliquis Disposition: Planning for ARU tomorrow VS, I&O, 24H, [facility] Vital Signs/I&O Vital Signs Date Time Temp Pulse Resp B/P (MAP) Pulse Ox O2 Delivery O2 Flow Rate FiO2 05/16/20 14:00 98.5 103 18 138/83 (101) 94 Room Air 05/14/20 09:20 I&O- Last 24 Hours up to 6 AM 05/16/20 06:00 Intake Total 2995 ml Output Total 2300 ml Balance 695 ml Laboratory Data 24H LABS Laboratory Tests 2 05/16/20 06:00: Nucleated Red Blood Cells % (auto) 0.0, Anion Gap 7L, Glomerular Filtration Rate > 60.0, Calcium Level 9.0 CBC/BMP Laboratory Tests 05/16/20 06:00 JANNA VALADEZ 15, 2021 16:24
[2020-05-16 22:00] VITALS: BP 130/82
[2020-05-17] MEDS: diazePAM 5MG TABLET PO PRN ×3 (04:03→18:35)
[2020-05-17] MEDS: PERCOCET 5MG/325MG TAB PO PRN ×3 (04:04→18:35)
[2020-05-17 06:00] VITALS: BP 131/79
[2020-05-17 06:52] LABS: HEMATOCRIT 40.9 % (42.0-52.0); HEMOGLOBIN 13.6 g/dl (13.5-17.5); MEAN CORPUSCULAR HEMOGLOBIN 28.6 pg (27.0-33.0); MEAN CORPUSCULAR HGB CONC 33.3 g/dl (32.0-36.5); MEAN CORPUSCULAR VOLUME 85.9 fl (80.0-96.0); PLATELET COUNT, AUTOMATED 288 10^3/uL (150-450); RED BLOOD COUNT 4.76 10^6/uL (4.30-6.10); WHITE BLOOD COUNT 10.5 10^3/uL (4.0-10.0)
[2020-05-17 07:15] LABS: BLOOD UREA NITROGEN 10 MG/DL (7-18); CALCIUM LEVEL 8.7 MG/DL (8.5-10.1); CARBON DIOXIDE LEVEL 28 MEQ/L (21-32); CHLORIDE LEVEL 94 MEQ/L (98-107); CREATININE FOR GFR 0.52 MG/DL (0.70-1.30); GLOMERULAR FILTRATION RATE > 60.0 (>56); GLUCOSE, FASTING 110 MG/DL (70-100); MAGNESIUM LEVEL 2.1 MG/DL (1.8-2.4); POTASSIUM SERUM 3.8 MEQ/L (3.5-5.1); SODIUM LEVEL 131 MEQ/L (136-145)
--- NOTE | 2020-05-17 08:41 | IPNPDOC ---
Date Seen The patient was seen on 05/17/20. Progress Note Patient seen and examined postoperative day 4 status post right above-knee amputation. He continues to do well. He is getting out of bed was physical therapy and says it is going well. His pain is well controlled. Tolerating a diet. He is just waiting on a bed to go to rehabilitation. On exam, the stump is clean dry and intact. No significant drainage on the dressing. The incision was thoroughly cleaned. All luz and sutures are intact. Xeroform 4 x 4's and Kerlix and Ariel wrap were placed as a final dressing. The patient tolerated the dressing change without difficulty and was able to elevate his tongue for me without pain. We will continue to follow along. Hopefully he will be able to go to rehabilitation soon. We appreciate the opportunity to participate in the care of this patient. VS, I&O, 24H, [facility] Vital Signs/I&O Vital Signs Date Time Temp Pulse Resp B/P (MAP) Pulse Ox O2 Delivery O2 Flow Rate FiO2 05/17/20 06:00 97.6 92 20 131/79 (96) 93 05/16/20 18:26 Room Air 05/14/20 09:20 I&O- Last 24 Hours up to 6 AM 05/17/20 06:00 Intake Total 3320 ml Output Total 3650 ml Balance -330 ml Laboratory Data 24H LABS Laboratory Tests 2 05/17/20 05:49: Nucleated Red Blood Cells % (auto) 0.0, Anion Gap 9, Glomerular Filtration Rate > 60.0, Calcium Level 8.7, Magnesium Level 2.1 CBC/BMP Laboratory Tests 05/17/20 05:49 ZACH BELL MD May 17, 2020 08:41
[2020-05-17] MEDS ORDERED: HYDROmorphone HCL 2 MG/ML 1ML VIAL (J1170) IV ONE (09:00)
--- NOTE | 2020-05-17 09:07 | IPNPDOC ---
Date Seen The patient was seen on 05/17/20. Progress Note HOSPITALIST PROGRESS NOTE DICTATED If note is needed urgently, pls have assembler unit call hypertype to stat transcribe Dr. Cantor's progress note job #[id number] VS, I&O, 24H, [facility] Vital Signs/I&O Vital Signs Date Time Temp Pulse Resp B/P (MAP) Pulse Ox O2 Delivery O2 Flow Rate FiO2 05/17/20 06:00 97.6 92 20 131/79 (96) 93 05/16/20 18:26 Room Air 05/14/20 09:20 I&O- Last 24 Hours up to 6 AM 05/17/20 06:00 Intake Total 3320 ml Output Total 3650 ml Balance -330 ml Laboratory Data 24H LABS Laboratory Tests 2 05/17/20 05:49: Nucleated Red Blood Cells % (auto) 0.0, Anion Gap 9, Glomerular Filtration Rate > 60.0, Calcium Level 8.7, Magnesium Level 2.1 CBC/BMP Laboratory Tests 05/17/20 05:49 SANDRA CANTOR MD May 17, 2020 08:01
[2020-05-17] MEDS: ASPIRIN 81MG ENTERIC TABLET PO SCH (09:14)
[2020-05-17] MEDS: ATORVASTATIN 20 MG TAB PO SCH (09:15)
[2020-05-17] MEDS: APIXABAN 5 MG TAB (ELIQUIS) PO SCH ×2 (09:15→20:08)
[2020-05-17] MEDS: lisinopriL 5 MG TAB PO SCH (09:16)
[2020-05-17] MEDS: amLODIPine 5 MG TAB PO SCH (09:16)
--- NOTE | 2020-05-17 10:09 | IPN ---
PROGRESS NOTE DATE: 05/17/2020 SUBJECTIVE: The patient is seen and examined at the bedside. The chart has been reviewed. He complains of pain 6/10 on a pain scale in the right amputation site, worse when he tries to ambulate. Patient has had no cough, shortness of breath, fever or chills overnight. No other new complaints this morning. OBJECTIVE: VITAL SIGNS: Temperature is 97.6, pulse is 92, respiratory rate is 20, blood pressure is 131/79, 93% on room air. GENERAL: The patient is awake, alert and oriented to person, place and timing, answering questions appropriately. No use of respiratory or accessory muscles. No conversational dyspnea. HEENT: Pupils equally round and reactive to light and accommodation. Extraocular muscles are intact. No JVD. No thyromegaly. Dry mucous membranes. No stridor. No pallor, icterus or jaundice. LUNGS: Clear to auscultation. No wheezes, rales or rhonchi. Air entry is equal bilaterally. No adventitious breath sounds. Bronchial breath sounds throughout. HEART: S1 and S2, sinus rhythm. No murmurs, rubs or gallops. Nondisplaced point of maximal impulse. ABDOMEN: Soft, nontender, nondistended. Positive bowel sounds x4 quadrants. No hepatosplenomegaly. No abdominal bruit. No fluid wave. EXTREMITIES: Right above knee amputation currently bandaged. Skin is warm and dry, well-perfused. [place] in color. Left lower extremity has no pitting edema, cyanosis or clubbing. LABORATORY DATA: White count 10.5, hemoglobin 13, hematocrit 40, platelet count is 288, sodium is 131, potassium is 3.8, chloride is 94, bicarbonate 28, BUN 10, creatinine 0.52, glucose of 110. ASSESSMENT AND PLAN: This is a 59-year-old male with a history of peripheral vascular disease status post right above the knee amputation on 05/13/2020. Current issues are: 1. Peripheral vascular disease status post right above the knee amputation managed by Vascular Surgery. Patient underwent right BKA on 05/13/2020, currently on Eliquis, aspirin for pain control, 1 to 2 tablets of Percocet every 4 hours and for breakthrough pain 1 mg of p.o. Dilaudid q. 4 hourly, Valium for muscle spasms 5 mg q. 6 hourly, Lipitor 20 mg q.a.m. 2. Hypertension, currently controlled on Lisinopril 5 mg daily, amlodipine 5 mg daily and hydralazine as needed for a systolic pressure of greater than 160 at 25 mg q. 6 hourly. 3. COPD, compensated. Albuterol as needed. 4. Dyslipidemia, on atorvastatin. 5. DVT prophylaxis, currently on Eliquis. 6. Disposition: Awaiting ARU acceptance. MTDD
[2020-05-17 14:00] VITALS: BP 131/78
[2020-05-17] MEDS: HYDROmorphone 2 MG TAB PO PRN (14:50)
[2020-05-17 22:00] VITALS: BP 145/75
[2020-05-18] MEDS: diazePAM 5MG TABLET PO PRN ×3 (05:43→18:23)
[2020-05-18] MEDS: PERCOCET 5MG/325MG TAB PO PRN ×3 (05:44→18:24)
[2020-05-18 05:59] LABS: HEMATOCRIT 39.3 % (42.0-52.0); HEMOGLOBIN 13.3 g/dl (13.5-17.5); MEAN CORPUSCULAR HEMOGLOBIN 28.5 pg (27.0-33.0); MEAN CORPUSCULAR HGB CONC 33.8 g/dl (32.0-36.5); MEAN CORPUSCULAR VOLUME 84.3 fl (80.0-96.0); PLATELET COUNT, AUTOMATED 329 10^3/uL (150-450); RED BLOOD COUNT 4.66 10^6/uL (4.30-6.10); WHITE BLOOD COUNT 11.6 10^3/uL (4.0-10.0)
[2020-05-18 06:00] VITALS: BP 134/79
[2020-05-18 06:18] LABS: BLOOD UREA NITROGEN 9 MG/DL (7-18); CALCIUM LEVEL 8.9 MG/DL (8.5-10.1); CARBON DIOXIDE LEVEL 28 MEQ/L (21-32); CHLORIDE LEVEL 94 MEQ/L (98-107); CREATININE FOR GFR 0.48 MG/DL (0.70-1.30); GLOMERULAR FILTRATION RATE > 60.0 (>56); GLUCOSE, FASTING 114 MG/DL (70-100); MAGNESIUM LEVEL 2.1 MG/DL (1.8-2.4); SODIUM LEVEL 130 MEQ/L (136-145)
--- NOTE | 2020-05-18 08:49 | IPNPDOC ---
Date Seen The patient was seen on 05/18/20. Progress Note Patient seen and examined postop day 5 status post right above-knee amputation. He says he is still waiting on approval to go to [facility]. Hopefully that can happen soon so the patient can progress and have more in-depth therapy. He did say he was out of bed using the wheelchair walking with a walker yesterday, and is doing very well. He says his pain is well controlled. He is tolerating a diet without difficulty. On exam, the right AKA stump is clean dry and intact. There is minimal bruising on the inferior medial aspect of the incision, and the inferior mediolateral aspect of the incision, stable no erythema or induration or drainage noted. The incision was cleaned and dried Xeroform fluffs kerlix and an Ariel wrap were placed. The patient tolerated this without challenge and was able to help me with the dressing change. We will continue to follow along for local wound care. Overall were placed with his progress and hopefully he can transition to rehabilitation soon. We appreciate the opportunity to participate in the care of this patient. VS, I&O, 24H, [facility] Vital Signs/I&O Vital Signs Date Time Temp Pulse Resp B/P (MAP) Pulse Ox O2 Delivery O2 Flow Rate FiO2 05/18/20 06:15 18 05/18/20 06:00 98.0 95 134/79 (97) 98 05/17/20 18:35 Room Air 05/14/20 09:20 I&O- Last 24 Hours up to 6 AM 05/18/20 06:00 Intake Total 3080 ml Output Total 4200 ml Balance -1120 ml Laboratory Data 24H LABS Laboratory Tests 2 05/18/20 05:33: Nucleated Red Blood Cells % (auto) 0.0, Anion Gap 8, Glomerular Filtration Rate > 60.0, Calcium Level 8.9, Magnesium Level 2.1 CBC/BMP Laboratory Tests 05/18/20 05:33 ZACH BELL MD May 18, 2020 08:49
[2020-05-18] MEDS: ASPIRIN 81MG ENTERIC TABLET PO SCH (09:06)
[2020-05-18] MEDS: APIXABAN 5 MG TAB (ELIQUIS) PO SCH ×2 (09:06→20:11)
[2020-05-18] MEDS: ATORVASTATIN 20 MG TAB PO SCH (09:06)
[2020-05-18] MEDS: amLODIPine 5 MG TAB PO SCH (09:08)
[2020-05-18] MEDS: lisinopriL 5 MG TAB PO SCH (09:08)
[2020-05-18] MEDS ORDERED: BISACODYL 5 MG TAB PO PRN (09:10)
--- NOTE | 2020-05-18 10:14 | IPNPDOC ---
Date Seen The patient was seen on 05/18/20. Progress Note HOSPITALIST PROGRESS NOTE DICTATED If note is needed urgently, pls call hypertype at [phone] Cantor's progress note job #[id number] VS, I&O, 24H, [facility] Vital Signs/I&O Vital Signs Date Time Temp Pulse Resp B/P (MAP) Pulse Ox O2 Delivery O2 Flow Rate FiO2 05/18/20 09:08 175/84 05/18/20 09:08 96 05/18/20 06:15 18 05/18/20 06:00 98.0 98 05/17/20 18:35 Room Air 05/14/20 09:20 I&O- Last 24 Hours up to 6 AM 05/18/20 06:00 Intake Total 3080 ml Output Total 4200 ml Balance -1120 ml Laboratory Data 24H LABS Laboratory Tests 2 05/18/20 05:33: Nucleated Red Blood Cells % (auto) 0.0, Anion Gap 8, Glomerular Filtration Rate > 60.0, Calcium Level 8.9, Magnesium Level 2.1 CBC/BMP Laboratory Tests 05/18/20 05:33 SANDRA CANTOR MD May 18, 2020 10:14
[2020-05-18] MEDS: SENOKOT S TAB PO PRN (12:36)
--- NOTE | 2020-05-18 13:06 | IPN ---
PROGRESS NOTE DATE: 05/18/2020 SUBJECTIVE: Per nursing patient has not had a bowel movement since admission. He is currently on Dilaudid and Valium for phantom pain and pain status post right AKA. Patient complains of 4/10 pain, had just received pain medications and Valium, says that it usually does better when he overlaps the two, it takes care of the phantom pain and the sharp pain. Has no pain when he is not ambulating and not moving around. No fever, chills, cough or shortness of breath overnight. We are still awaiting his [facility] insurance to approve. Disposition has been postponed until insurance approves placement. Despite blood pressure 175 systolic mmHg patient denies any headache, chest pain, pressure, tightness, shortness of breath, dizziness or lightheadedness, nausea, vomiting, epigastric pain or feeling of impending doom, changes in vision, blurred vision. OBJECTIVE: Vital signs: Temperature 98, pulse 95, respiratory 20, blood pressure 175/84, pulse ox 98% on room air. General: Awake, alert, oriented times 3, answering questions appropriately. Neck: No JVD, no thyromegaly, no cervical lymphadenopathy. Lungs: Clear to auscultation, no wheezes, rhonchi or rales. Heart: S1 and S2, sinus rhythm, no murmurs, rubs or gallops. Abdomen: Soft, nontender, nondistended, positive bowel sounds. Extremities: No pitting edema. Right siclh-pwn-stbi amputation bandaged. LABORATORY DATA: White count 11.6, hemoglobin 13, hematocrit 39, platelet count 329. Sodium 130, potassium 4, chloride 94, bicarb 28, BUN 9, creatinine 0.48, glucose 114. ASSESSMENT: This is a 59-year-old male with history of peripheral vascular disease status post right dgfqd-dts-cpcn amputation 05/13/2020. IMPRESSIONS/PLANS: 1. Peripheral vascular disease status post right AKA: Managed by vascular surgery, status post right AKA 05/13/2020 currently on Eliquis, aspirin and pain control with Percocet 1-2 tablets every 4 hours, breakthrough pain with by mouth Dilaudid, Valium for muscle spasms and chronically on Lipitor 20 every morning. 2. Hypertension uncontrolled secondary to pain: Patient does not want to change his pain regimen at this time. He will receive Norvasc and lisinopril. Usually has good blood pressure control, 120-130 mmHg, after pain medications are given. 3. COPD: Compensated, albuterol as needed. 4. Dyslipidemia: On chronic atorvastatin. 5. DVT prophylaxis: On chronic Eliquis. 6. Disposition: Awaiting [facility] insurance. DSS consulted and to alert physician once the patient's disposition is clarified. NICK
[2020-05-18 14:00] VITALS: BP 164/86
[2020-05-18] MEDS ORDERED: DIAZ5TAB PO (18:19)
[2020-05-18] MEDS ORDERED: LISI-898 PO (18:19)
[2020-05-18] MEDS ORDERED: AMLO1TAB24 PO (18:19)
[2020-05-18] MEDS ORDERED: BISAC5TA PO (18:19)
[2020-05-18] MEDS ORDERED: SENN-52 PO (18:19)
[2020-05-18] MEDS ORDERED: PERCOCET PO (18:19)
[2020-05-18] MEDS ORDERED: HYDR25TA PO (18:19)
[2020-05-18] MEDS ORDERED: DILA2TAB6 PO (18:19)
[2020-05-18] MEDS: MOM 30ML SUSPENSION UDC PO PRN (18:23)
[2020-05-18 22:00] VITALS: BP 121/76
[2020-05-19] MEDS: PERCOCET 5MG/325MG TAB PO PRN ×2 (01:13→09:07)
[2020-05-19] MEDS: diazePAM 5MG TABLET PO PRN ×2 (01:13→09:06)
[2020-05-19] MEDS: MOM 30ML SUSPENSION UDC PO PRN (01:15)
[2020-05-19] MEDS: SENOKOT S TAB PO PRN (01:15)
[2020-05-19 06:00] VITALS: BP 146/86
--- NOTE | 2020-05-19 07:52 | IPNPDOC ---
Date Seen The patient was seen on 05/19/20. Progress Note Patient seen and examined postop day 6 status post right above-knee amputation. He says he is now going to the [facility] in [place] for rehab. He worked with PT yesterday and said it went well. He says his pain is well controlled. He is tolerating a diet without difficulty. On exam, the right AKA stump is clean dry and intact. There is minimal bruising on the inferior medial aspect of the incision, and the inferior mediolateral aspect of the incision, stable- no erythema or induration or drainage noted. The incision was cleaned and dried and fluffs kerlix and an Ariel wrap were placed. The patient tolerated this without challenge and was able to help me with the dressing change. We will continue to follow along for local wound care. Overall were placed with his progress and hopefully he can transition to rehabilitation today. Discharge instructions: Wash and dry R AKA stump daily, and dress with 4x4s, kerlix, ariel wrap. Elevate stump when at rest. [place] can come out 1-2 weeks from today. Sutures can come out 2-3 weeks from today. We prefer to remove luz a week before removing sutures. Follow up upon d/c from rehab. We appreciate the opportunity to participate in the care of this patient. VS, I&O, 24H, Fishbone Vital Signs/I&O Vital Signs Date Time Temp Pulse Resp B/P (MAP) Pulse Ox O2 Delivery O2 Flow Rate FiO2 05/19/20 06:00 98.2 83 18 146/86 (106) 95 Room Air 05/14/20 09:20 I&O- Last 24 Hours up to 6 AM 05/19/20 06:00 Intake Total 1550 ml Output Total 1825 ml Balance -275 ml Laboratory Data 24H LABS Laboratory Tests 2 05/18/20 12:40: Coronavirus (COVID-19)(PCR) NEGATIVE ZACH BELL MD May 19, 2020 07:52
--- NOTE | 2020-05-19 08:17 | DS.PDOC ---
Discharge Summary General Date of Admission May 13, 2020 at 05:58 Date of Discharge 05/19/20transferred to [facility] Discharge Summary Hospitalist DISCHARGE SUMMARY dictated. If note is needed urgently, pls call medical records and have hypertype STAT transcribe Dr. Cantor's Progress note Vital Signs/I&Os Vital Signs Date Time Temp Pulse Resp B/P (MAP) Pulse Ox O2 Delivery O2 Flow Rate FiO2 05/19/20 06:00 98.2 83 18 146/86 (106) 95 Room Air 05/14/20 09:20 l I&O- Last 24 Hours up to 6 AM 05/19/20 06:00 Intake Total 1550 ml Output Total 1825 ml Balance -275 ml Laboratory Data Labs 24H Laboratory Tests 2 05/18/20 12:40: Coronavirus (COVID-19)(PCR) NEGATIVE Discharge Medications Scheduled Amlodipine Besylate (Amlodipine Besylate) 5 Mg Tablet, 5 MG PO DAILY Apixaban (Eliquis) 5 Mg Tablet, 5 MG PO BID . Aspirin (Low Dose Aspirin EC) 81 Mg Tablet.dr, 81 MG PO DAILY, (Reported) Atorvastatin Calcium (Atorvastatin Calcium) 20 Mg Tablet, 20 MG PO QAM, (Reported) Cholecalciferol (Vitamin D3) (Vitamin D3) 25 Mcg Capsule, 25 MCG PO DAILY, (Reported) Lisinopril (Lisinopril) 5 Mg Tablet, 5 MG PO DAILY Scheduled PRN Bisacodyl (Bisacodyl) 5 Mg Tablet.dr, 10 MG PO DAILYPRN PRN for CONSTIPATION Diazepam (Diazepam) 5 Mg Tablet, 5 MG PO Q6HP PRN for muscle spasm Hydralazine HCl (Hydralazine HCl) 25 Mg Tablet, 25 MG PO Q6HP PRN for SBP >160 Hydromorphone HCl (Dilaudid) 2 Mg Tablet, 1 MG PO Q4HP PRN for BREAKTHROUGH PAIN Oxycodone/Acetaminophen (Oxycodone-Acetaminophen 5-325) 1 Each Tablet, 1 TAB PO Q4HP PRN for MODERATE PAIN (PS 5-7) Oxycodone/Acetaminophen (Oxycodone-Acetaminophen 5-325) 1 Each Tablet, 2 TAB PO Q4HP PRN for SEVERE PAIN (PS 8-10) Sennosides/Docusate Sodium (Senna Plus Tablet) 1 Each Tablet, 2 TAB PO BIDP PRN for CONSTIPATION Allergies Coded Allergies: No Known Allergies (Unverified , 07/10/19) SANDRA CANTOR MD May 19, 2020 08:17
[2020-05-19] MEDS: ATORVASTATIN 20 MG TAB PO SCH (09:06)
[2020-05-19] MEDS: ASPIRIN 81MG ENTERIC TABLET PO SCH (09:06)
[2020-05-19] MEDS: APIXABAN 5 MG TAB (ELIQUIS) PO SCH (09:06)
[2020-05-19 09:08] VITALS: BP 129/81
[2020-05-19] MEDS: lisinopriL 5 MG TAB PO SCH (09:08)
[2020-05-19] MEDS: amLODIPine 5 MG TAB PO SCH (09:08)
--- NOTE | 2020-05-19 11:27 | DSES ---
DISCHARGE SUMMARY DATE OF ADMISSION: 05/13/2020 DATE OF DISCHARGE: 05/19/2020 TRANSFER FACILITY: [facility]. PRIMARY DISCHARGE DIAGNOSES: 1. Peripheral vascular disease status post right tzjuh-pdy-dbpy amputation, postoperative day #6. 2. Hypertension. 3. Chronic obstructive pulmonary disease (COPD). 4. Dyslipidemia. 5. Hypertensive urgency. 6. Chronic hyponatremia with sodium of 130 to 131. DISCHARGE MEDICATIONS: 1. Amlodipine 5 mg daily. 2. Bisacodyl 10 mg as needed for constipation. 3. Valium 5 mg q. 6 as needed for muscle spasms. 4. Hydralazine 25 mg p.o. q. 6 as needed for systolic pressure greater than 160. 5. Dilaudid 1 mg p.o. q. 4 as needed for breakthrough pain. 6. Lisinopril 5 mg daily. 7. Percocet 5/325 one to two tablets every four hours for lenazpjd-uw-fsqygq pain. 8. Senokot-S two tabs p.o. b.i.d. as needed for constipation. 9. Eliquis 5 mg b.i.d. 10. Aspirin 81 daily. 11. Atorvastatin 20 mg q. a.m. 12. Vitamin D 25 mcg daily. DISCHARGE INSTRUCTIONS: Right AKA postop management per vascular surgery. Wash and dry the right AKA stump daily. Dress with 4 x 4s, Kerlix, and Ariel wrap. Elevate the stump when at rest. Luz can come out one to two weeks from 05/19/2020. Sutures can come out two to three weeks from 05/19/2020. Vascular surgeon prefers to remove luz a week before removing sutures. Follow-up upon discharge from rehab with Dr. Tearn of vascular surgery. HOSPITAL COURSE: This is a 59-year-old male with peripheral vascular disease admitted on 05/14/2019, due to severe right leg ischemia with severe rest pain. Patient denied any fever, chills, or chest pain, and was taken to the operating room by vascular surgeon, Dr. Teran, for right mqgeg-heb-dbnv amputation. The patient was medically optimized and had no postop complications, then was started on Eliquis and aspirin one day after surgery. The patient's blood pressure was elevated in the 200s, was started on Norvasc, and as needed-hydralazine. When the pain was controlled, the patient's blood pressure improved. The patient remained stable and had compensated COPD with as-needed Albuterol. He was continued on atorvastatin. The patient's hospital course was extended due to inability to transfer to acute rehab unit. [facility] approved transfer to [facility] in [place]. He is now being transferred in stable condition. Blood pressure is well maintained at 121 systolic to 140 systolic with current pain medications. DISCHARGE PHYSICAL EXAMINATION: VITAL SIGNS: Temperature 98.2, pulse 83, respiratory rate 18, blood pressure 146/86, 95% on room air. GENERAL: Awake, alert, and oriented to person, place, and time. Answering questions appropriately. LUNGS: Clear to auscultation. No wheezing, rales, or rhonchi. HEART: S1, S2. Sinus rhythm. ABDOMEN: Soft, nontender, and nondistended. Positive bowel sounds. EXTREMITIES: Right pezjx-qkh-jbdf amputation that is bandaged. SKIN: Warm, dry, and well-perfused. [place] in color of the left lower extremity. DISCHARGE LABORATORY DATA: White count 11.6, hemoglobin 13, hematocrit 39, platelet count 329,000. Sodium 130, potassium 4, chloride 94, bicarb 28, BUN 9, creatinine 0.48, glucose 114. IMAGING STUDIES: From 04/15/2020, extremity arterial study: Right iliac artery stent is patent. Right external iliac artery demonstrates proximal and distal areas of occlusion and right external iliac artery stent is identified and has somewhat flattened narrowed appearance along the distal aspect causing increased velocity and 10:1 stenosis. 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 Significant disease with areas of narrowing and occlusion involving iliac arteries in the lower extremities as indicated. Time spent on discharge 30 minutes. MTDD
== END 2020-05-19 10:31 | DRG 240 ==
LOC: M OR 05:58 → M MSPAV 11:04
PROVIDERS: ADMIT Surgery Vascular Surgery; ATTEND General Practice
PROC: 0Y6C0Z2 Detachment at Right Upper Leg, Mid, Open Approach (ICD-10-PCS; principal; 2020-05-13 07:30)
DX: I70.221 Atherosclerosis of native arteries of extremities with rest pain, right leg (principal); E87.1 Hypo-osmolality and hyponatremia; J44.9 Chronic obstructive pulmonary disease, unspecified; G54.6 Phantom limb syndrome with pain; E78.5 Hyperlipidemia, unspecified; I16.0 Hypertensive urgency; K59.00 Constipation, unspecified; Z79.82 Long term (current) use of aspirin; Z79.899 Other long term (current) drug therapy

== ENCOUNTER → 2020-07-14 | Outpatient (REF) | payer OTHER ==
[~2020-07-14] MED LIST changes: +AMLO1TAB24 PO; +BISAC5TA PO; +DIAZ5TAB PO; +DILA2TAB6 PO; +HYDR25TA PO; +LISI-898 PO; +SENN-52 PO
== END ==
LOC: M LAB REF 16:29
PROVIDERS: ATTEND Physician Assistant
DX: Z89.611 Acquired absence of right leg above knee (principal)

== ENCOUNTER → 2020-08-23 | Outpatient (REF) | payer OTHER | LOC: M LAB REF 16:12 | PROVIDERS: ATTEND Physician Assistant | DX: Z89.611 Acquired absence of right leg above knee (principal) ==

== ENCOUNTER → 2021-10-02 | Outpatient (CLI) | payer OTHER ==
[~2021-10-02] MED LIST changes: +IRON65TA2 PO; -LISI-898 PO; +LISI5TAB11 PO; +NEUR600T PO; +VITA500C19 PO
== END ==
LOC: M LABSMTC 09:48
PROVIDERS: ATTEND Anesthesiology
DX: Z01.818 Encounter for other preprocedural examination (principal); Z11.52 Encounter for screening for COVID-19

== ENCOUNTER 2021-10-06 11:58 | Day surgery (SDC) | payer OTHER ==
[~2021-10-06] VITALS: Ht 180.3 cm; Wt 64.4 kg
[~2021-10-06 11:58] MED LIST changes: +NS 1,000 ML IV ONE
[2021-10-06] MEDS ORDERED: fentaNYL 100 MCG/2 ML INJECTION As Ordered ONE (13:16)
[2021-10-06] MEDS ORDERED: propofoL 200 MG/20 ML VIAL As Ordered ONE (13:16)
[2021-10-06] MEDS ORDERED: LIDOCAINE 2% 100MG/5ML SDV (FOR ANES.) As Ordered ONE (13:16)
[2021-10-06] MEDS ORDERED: PHENYLephrine 500MCG 5ML (100MCG/ML) SYRINGE As Ordered ONE (14:33)
[2021-10-06 15:00] VITALS: BP 112/60
== END 2021-10-06 15:34 | disposition home or self-care (01) ==
LOC: M OPP 11:58
PROVIDERS: ATTEND Internal Medicine Gastroenterology
DX: D50.9 Iron deficiency anemia, unspecified (principal); K63.5 Polyp of colon; K57.30 Diverticulosis of large intestine without perforation or abscess without bleeding; K64.8 Other hemorrhoids; K29.70 Gastritis, unspecified, without bleeding; K31.89 Other diseases of stomach and duodenum; M19.90 Unspecified osteoarthritis, unspecified site; J44.9 Chronic obstructive pulmonary disease, unspecified; F32.A Depression, unspecified; Z79.01 Long term (current) use of anticoagulants; Z79.82 Long term (current) use of aspirin; Z87.891 Personal history of nicotine dependence; Z79.899 Other long term (current) drug therapy
CPT/HCPCS: 43239; 45385; 88305; J2370; J3010

== ENCOUNTER 2023-04-10 10:02 | Emergency (ER) | payer OTHER ==
[~2023-04-10] VITALS: Ht 180.3 cm; Wt 75.0 kg
[~2023-04-10 10:02] MED LIST changes: +CLOP75TA99 PO; -NS 1,000 ML IV ONE; -PLAV1TAB2 PO
[2023-04-10 12:23] LABS: BASO # 0.1 10^3/uL (0.0-0.2); BASO % 0.2 % (0.0-1.0); EOS % 0.1 % (0.0-3.0); HEMATOCRIT 35.6 % (42.0-52.0); HEMOGLOBIN 11.8 g/dl (13.5-17.5); LYMPH # 0.9 10^3/uL (1.5-5.0); LYMPH % 3.8 % (24.0-44.0); MEAN CORPUSCULAR HEMOGLOBIN 28.2 pg (27.0-33.0); MEAN CORPUSCULAR HGB CONC 33.1 g/dl (32.0-36.5); MEAN CORPUSCULAR VOLUME 85.2 fl (80.0-96.0); MONO # 1.1 10^3/uL (0.0-0.8); MONO % 4.7 % (2.0-8.0); NEUTROPHILS % 90.8 % (36.0-66.0); PLATELET COUNT, AUTOMATED 412 10^3/uL (150-450); RED BLOOD COUNT 4.18 10^6/uL (4.30-6.10); WHITE BLOOD COUNT 24.2 10^3/uL (4.0-10.0)
[2023-04-10 12:41] LABS: LIPASE 19 U/L (12-53)
[2023-04-10 12:44] LABS: ALBUMIN 3.3 G/DL (3.2-5.2); ALKALINE PHOSPHATASE 67 U/L (46-116); ALT/SGPT 15 U/L (7.0-40); AST/SGOT 12 U/L (<34); BILIRUBIN,DIRECT 0.4 MG/DL (<0.4); BILIRUBIN,TOTAL 0.9 MG/DL (0.3-1.2); BLOOD UREA NITROGEN 12 MG/DL (9-23); CALCIUM LEVEL 8.5 MG/DL (8.3-10.6); CARBON DIOXIDE LEVEL 25 MMOL/L (20-31); CHLORIDE LEVEL 100 MMOL/L (98-107); CREATININE FOR GFR 0.68 MG/DL (0.70-1.30); GLOMERULAR FILTRATION RATE > 60.0 (>49); GLUCOSE, FASTING 114 MG/DL (74-106); POTASSIUM SERUM 3.9 MMOL/L (3.5-5.1); SODIUM LEVEL 133 MMOL/L (136-145); TOTAL PROTEIN 6.7 G/DL (5.7-8.2)
[2023-04-10] MEDS: ONDANSETRON 4MG 2ML VIAL IV ONE (12:50)
[2023-04-10] MEDS: MORPHINE 2 MG/ML 1ML VIAL IV ONE (12:50)
[2023-04-10] MEDS ORDERED: ISOVUE-370 76% 100ML VIAL As Ordered ONE (12:50)
[2023-04-10 13:32] LABS: RSV AMPLIFICATION NEGATIVE (NEGATIVE)
[2023-04-10] MEDS: PIPERACILLIN/TAZOBACTAM SOD 3.375 GM in D5W MINI-BAG PLUS 50 ML IV ONE (13:39)
[2023-04-10] MEDS: NS 1,000 ML IV ONE (13:39)
[2023-04-10] MEDS: ACETAMINOPHEN 500 MG TAB PO ONE (16:13)
[2023-04-10] MEDS: NS 1,000 ML IV SCH (16:30)
[2023-04-10 17:10] VITALS: BP 107/58; TEMP 98.7; O2SAT 97
== END 2023-04-10 17:29 | disposition short-term general hospital (02) ==
LOC: M ED 10:02
DX: T82.7XXA Infection and inflammatory reaction due to other cardiac and vascular devices, implants and grafts, initial encounter (principal); X58.XXXA Exposure to other specified factors, initial encounter; Y92.89 Other specified places as the place of occurrence of the external cause; Y93.89 Activity, other specified; Y99.8 Other external cause status; I11.9 Hypertensive heart disease without heart failure; E78.00 Pure hypercholesterolemia, unspecified; J44.9 Chronic obstructive pulmonary disease, unspecified; Z79.01 Long term (current) use of anticoagulants; Z79.899 Other long term (current) drug therapy; Z79.82 Long term (current) use of aspirin
CPT/HCPCS: 74177; 76857; 76870; 80048; 80076; 81001; 83605; 83690; 85025; 87040; 87631; 93976; 96361; 96365; 96375; 99284; J2405; J2543; Q9967